=== PATIENT | female | born 1935 | race Caucasian/White ===

== ENCOUNTER 2017-12-04 09:02 | Observation (INO) ==
--- NOTE | 2017-12-04 09:26 | Emergency Department Note ---
Disposition Clinical Impression: Near syncope, Lightheaded Disposition: Admitted As Inpatient Condition: Fair Time of Disposition: 11:43 General Adult HPI - General Chief complaint: ED Dizziness Stated complaint: Dizziness ,Head pressure feels different Time Seen by Provider: 12/04/17 09:05 Source: patient Mode of arrival: private vehicle Limitations: no limitations Nursing Notes Reviewed: Yes Vital Signs Reviewed: Yes - History of Present Illness HPI Narrative: 82-year-old female prior history of vertigo, hypertension who presents to the ER with complaint of headache, lightheadedness and weakness. Reports that she has a history of vertigo going back for years. She follows with a specialist here. States that this was not similar to her previous episodes. Reports that she woke up this morning at 7 AM and when she stood up she got very nauseous. Reports that she did get lightheaded. She did not pass out. She sat down and improved. States she has felt weak since then. Denies any chest pain or shortness of breath. No double vision, change in vision, numbness, tingling. No vomiting, diarrhea or abdominal pain. No dysuria or hematuria. No other complaints. Pt Subjective Complaint: Lightheaded, headache, weakness Onset (ago): hour(s) Pain Scale: 0 Improves with: nothing Worsens with: nothing Associated symptoms: Reports: headaches, nausea/vomiting. Denies: chest pain, fever/chills, shortness of breath Treatments Prior to Arrival: none - Related Data Home Medications Medication Instructions Recorded Confirmed Aspirin 81 mg PO QPM 12/01/14 12/01/14 Losartan/Hydrochlorothiazide 1 tab PO HS 12/04/17 12/04/17 [Hyzaar 100-25 Tablet] Allergies Allergy/AdvReac Type Severity Reaction Status Date / Time No Known Allergies Allergy Verified 12/01/14 08:09 All systems ED: reviewed and negative except as stated. Constitutional: Denies: fever Cardiovascular: Denies: chest pain Respiratory: Denies: dyspnea Gastrointestinal: Reports: nausea. Denies: abdominal pain, vomiting Neurological: Reports: weakness. Denies: headache, numbness, paresthesias Past Medical History - Past Medical History Attestation: Yes The following information was validated with the patient. Source: patient Medical history: Reports: hypertension, other Surgical history: Reports: appendectomy Psychiatric history: Reports: no psych history - Social History Smoking Status: Former smoker Smokeless Tobacco Status: No Alcohol use: Reports: none Drug use: Reports: none Physical Exam - General Limitations: no limitations General appearance: alert, in no apparent distress - Head Head exam: atraumatic, normocephalic, normal inspection - Eye Eye exam: Present: normal appearance, PERRL, EOMI - ENT ENT exam: normal exam - Neck Neck exam: Present: normal inspection, full ROM - Chest Chest inspection: Present: normal inspection, symmetric chest wall rise - Respiratory Respiratory exam: Present: normal lung sounds bilaterally - Cardiovascular Cardiovascular exam: Present: regular rate, normal rhythm, normal heart sounds - Abdominal Exam Abdominal exam: Present: soft, Non-Tender. Absent: tenderness, distention, rigidity - Extremities Exam Extremities exam: Present: normal inspection, full ROM - Expanded Upper Extremity Exam Shoulder exam: Present: normal inspection, full ROM Arm exam: Present: normal inspection, full ROM Elbow exam: Present: normal inspection, full ROM Forearm/Wrist exam: Present: normal inspection, full ROM Hand exam: Present: normal inspection, full ROM Vascular exam: Normal: radial pulse - Expanded Lower Extremity Exam Hip/Pelvis exam: Present: normal inspection, full ROM Upper leg exam: Present: normal inspection, full ROM Knee exam: Present: normal inspection, full ROM Lower leg exam: Present: normal inspection, full ROM Ankle exam: Present: normal inspection, full ROM Foot/toe exam: Present: normal inspection, full ROM Neurovascular/Tendon exam: Absent: motor deficit, sensory deficit - Neurological Exam Neurological exam: Present: alert, CN II-XII intact - Expanded Neurological Exam Speech: Present: fluid speech Cranial nerves: EOM function (II, III, IV, ): Normal, facial sensation (V): Normal, spinal accessory function (XI): Normal, tongue deviation (XII): Normal Motor strength - LUE: 5/5 Motor strength - RUE: 5/5 Motor strength - LLE: 5/5 Motor strength - RLE: 5/5 Sensory exam upper extremity: light touch: Normal Sensory exam lower extremity: light touch: Normal Coma Scale Eye Opening: Spontaneous Coma Scale Motor Response: Obeys Commands Coma Scale Verbal Response: Oriented Coma Scale Total: 15 - Skin Skin exam: Present: warm, dry Course Course Narrative: Patient seen and examined. Vital signs reviewed. No focal deficits. She is not ataxic. Plan for EKG, CT head, chest x-ray, labs, urinalysis. Likely admission for near syncope. - Reevaluation(s) Reevaluation #1: Discussed imaging and labs with the patient. Agreeable with admission. She did have some nausea while here. Zofran ordered. Vital Signs Temperature 97.6 F 12/04/17 09:10 Pulse Rate 85 12/04/17 09:10 Respiratory Rate 15 12/04/17 09:10 Blood Pressure 159/106 12/04/17 09:10 O2 Sat by Pulse Oximetry 97 12/04/17 09:10 Temperature 97.6 F 12/04/17 09:20 Pulse Rate 75 12/04/17 11:00 Respiratory Rate 17 12/04/17 10:54 Blood Pressure 170/65 12/04/17 11:00 O2 Sat by Pulse Oximetry 96 12/04/17 10:54 Oxygen Delivery Oxygen Delivery Room Air Medical Decision Making - MDM Narrative Medical decision making narrative: 82-year-old female with near syncope. Hemodynamically stable. Asymptomatic at this time with the exception of some nausea. EKG is sinus without ischemia. CT head negative. Labs reviewed and grossly unremarkable. Patient admitted for near-syncope to the hospitalist for further evaluation. - Lab Data Lab results reviewed: Yes I reviewed the patient's lab results. Result diagrams: 12/04/17 09:10 12/04/17 09:10 Lab Results 12/04/17 12/04/17 12/04/17 Range/Units 09:10 09:10 09:11 WBC 7.2 (4.3-11.1) K/mcL RBC 5.66 H (3.82-4.97) M/mcL Hgb 16.9 H (11.5-15.4) g/dL Hct 50.4 H (35.3-44.9) % MCV 89.0 (83.0-100.0) fL MCH 29.9 (28.0-33.3) pg MCHC 33.5 (31.6-35.5) g/dL RDW 14.4 (11.5-14.5) % Plt Count 160 (140-400) K/mcL MPV 12.5 H (9.4-12.4) fL Immature Gran % 0.3 (0-4) % Seg Neutrophils % 68.9 % Lymphocytes % 22.7 % Monocytes % 6.4 % Eosinophils % 1.4 % Basophils % 0.3 % Neutrophils # 5.0 (1.6-8.9) K/mcL Lymphocytes # 1.6 (0.6-4.6) K/mcL Monocytes # 0.5 (0.0-1.3) K/mcL Eosinophils # 0.1 (0.0-0.6) K/mcL Basophils # 0.0 (0.0-0.2) K/mcL Sodium 140 (136-145) mEq/L Potassium 4.1 (3.5-5.1) mEq/L Chloride 101 (98-107) mEq/L Carbon Dioxide 28 (23-29) mEq/L BUN 29 H (8-23) mg/dL Creatinine 1.37 H (0.60-1.20) mg/dL Est GFR ( Amer) 45 L (> 60) Est GFR (Non-Af Amer) 37 L (> 60) BUN/Creatinine Ratio 21 (6-26) Glucose 111 H (70-105) mg/dL Calculated Osmolality 297 (280-300) Calcium 9.6 (8.6-10.3) mg/dL Troponin I < 0.03 (< 0.04) ng/mL TSH 2.974 (0.340-5.600) mcIU/mL Urine Color (Yellow) Urine Clarity (Clear) Urine pH (5.0-8.0) pH Units Ur Specific [place] (1.010-1.025) Urine Protein (Neg-Trace) mg/dL Urine Glucose (UA) (Normal) mg/dL Urine Ketones (Negative) mg/dL Urine Blood (Negative) Urine Nitrite (Negative) Urine Bilirubin (Negative) Urine Urobilinogen (Normal) mg/dL Ur Leukocyte Esterase (Negative) Urine Microscopic RBC (0-3) per hpf Urine Microscopic WBC (0-3) per hpf Ur Squamous Epith Cells (None-Few) per lpf Urine Bacteria (None-Few) per hpf Hyaline Casts (None-Few) per lpf Ur Culture Indicated? (NO) 12/04/17 Range/Units 09:31 WBC (4.3-11.1) K/mcL RBC (3.82-4.97) M/mcL Hgb (11.5-15.4) g/dL Hct (35.3-44.9) % MCV (83.0-100.0) fL MCH (28.0-33.3) pg MCHC (31.6-35.5) g/dL RDW (11.5-14.5) % Plt Count (140-400) K/mcL MPV (9.4-12.4) fL Immature Gran % (0-4) % Seg Neutrophils % % Lymphocytes % % Monocytes % % Eosinophils % % Basophils % % Neutrophils # (1.6-8.9) K/mcL Lymphocytes # (0.6-4.6) K/mcL Monocytes # (0.0-1.3) K/mcL Eosinophils # (0.0-0.6) K/mcL Basophils # (0.0-0.2) K/mcL Sodium (136-145) mEq/L Potassium (3.5-5.1) mEq/L Chloride (98-107) mEq/L Carbon Dioxide (23-29) mEq/L BUN (8-23) mg/dL Creatinine (0.60-1.20) mg/dL Est GFR ( Amer) (> 60) Est GFR (Non-Af Amer) (> 60) BUN/Creatinine Ratio (6-26) Glucose (70-105) mg/dL Calculated Osmolality (280-300) Calcium (8.6-10.3) mg/dL Troponin I (< 0.04) ng/mL TSH (0.340-5.600) mcIU/mL Urine Color Yellow (Yellow) Urine Clarity Cloudy A (Clear) Urine pH 6.0 (5.0-8.0) pH Units Ur Specific [place] 1.008 L (1.010-1.025) Urine Protein Trace (Neg-Trace) mg/dL Urine Glucose (UA) Normal (Normal) mg/dL Urine Ketones Negative (Negative) mg/dL Urine Blood Negative (Negative) Urine Nitrite Negative (Negative) Urine Bilirubin Negative (Negative) Urine Urobilinogen Normal (Normal) mg/dL Ur Leukocyte Esterase Negative (Negative) Urine Microscopic RBC 0-3 (0-3) per hpf Urine Microscopic WBC 0-3 (0-3) per hpf Ur Squamous Epith Cells Many H (None-Few) per lpf Urine Bacteria Few (None-Few) per hpf Hyaline Casts None Seen (None-Few) per lpf Ur Culture Indicated? NO (NO) - Radiology Data Radiology results reviewed: Yes I reviewed the patient's radiology results. Head CT 12/04/17 09:08 IMPRESSION: Sequela of chronic small vessel ischemic change. No acute intracranial abnormality seen. D/ / 12/04/2017 10:01:07 Santiago Alba MD / [email or web address] Interpreting Provider: Santiago Alba MD Chest X-Ray 12/04/17 09:10 IMPRESSION: No acute process. Stable exam. D/ / Clemente Telles MD / Clemente Telles MD Interpreting Provider: Clemente Telles MD - EKG Data EKG #1 EKG attestation: Yes I reviewed and interpreted this EKG. EKG results narrative: EKG demonstrates sinus rhythm with a rate of 85 beats or minute. Normal axis. Normal intervals. Normal R-wave progression. No gross ST elevations or depressions. No acute ischemic findings. No significant changes from previous EKG dated 12/01/14. S.B.A.R. - S.B.AEliotREliot Situation: Demographics, MOA Background: Presenting Complaint, Relevant PMH, Meds, & Allergies Assessment: Course and respsone to treatment, Exam Concerns, Patient/Family Expectation, Pertinant Lab Results Recommendation: Barrier(s) to disposition, Recommendation based on pending studies, treatments, or consults S.B.A.REliot Report Given to: Dr. Carlos MonsalveARobert Repor Time: 11:04 Attestation Statement - Attestation Attestation: I, Mohsen Silveira DO, examined this patient [id number] and my medical decision-making was reviewed with Dr. Ton Estrada Resident Physician. I agree with the documented findings, disposition and treatment plan as described except to the extent set forth below. Please see my progress notes for details.
[2017-12-04 09:34] LABS: Basophils % 0.3 %; Eosinophils # 0.1 K/mcL (0.0-0.6); Eosinophils % 1.4 %; Hematocrit 50.4 % (35.3-44.9); Hemoglobin 16.9 g/dL (11.5-15.4); Immature Granulocytes % 0.3 % (0-4); Lymphocytes # 1.6 K/mcL (0.6-4.6); Lymphocytes % 22.7 %; Mean Corpuscular HGB Conc 33.5 g/dL (31.6-35.5); Mean Corpuscular Hemoglobin 29.9 pg (28.0-33.3); Mean Platelet Volume 12.5 fL (9.4-12.4); Monocytes # 0.5 K/mcL (0.0-1.3); Monocytes % 6.4 %; Platelet Count 160 K/mcL (140-400); Red Blood Count 5.66 M/mcL (3.82-4.97); Red Cell Distribution Width 14.4 % (11.5-14.5); Segmented Neutrophils % 68.9 %
[2017-12-04 09:42] LABS: Bilirubin,Urine Negative (Negative); Blood,Urine Negative (Negative); Clarity,Urine Cloudy (Clear); Color,Urine Yellow (Yellow); Glucose,Urine (UA) Normal (Normal); Ketones,Urine Negative (Negative); Leukocyte Esterase,Urine Negative (Negative); Nitrite,Urine Negative (Negative); Protein,Urine Trace mg/dL (Neg-Trace); Specific Gravity,Urine 1.008 (1.010-1.025); Urobilinogen,Urine Normal (Normal)
[2017-12-04 09:44] LABS: Bacteria,Urine Few per hpf (None-Few); Hyaline Casts,Urine None Seen per lpf (None-Few); RBC,Urine 0-3 per hpf (0-3); Squamous Epithelial Cell,Urine Many per lpf (None-Few); WBC,Urine 0-3 per hpf (0-3)
[2017-12-04 09:55] LABS: BUN/Creatinine Ratio 21 (6-26); Blood Urea Nitrogen 29 mg/dL (8-23); Calcium 9.6 mg/dL (8.6-10.3); Carbon Dioxide 28 mEq/L (23-29); Chloride 101 mEq/L (98-107); Glucose 111 mg/dL (70-105); Osmolality,Calculated 297 (280-300); Potassium 4.1 mEq/L (3.5-5.1); Sodium 140 mEq/L (136-145); eGFR For Non-African Americans 37 (> 60)
[2017-12-04 09:57] LABS: Troponin I < 0.03 ng/mL (< 0.04)
[2017-12-04] MEDS ORDERED: Ondansetron 4 MG/2 ML VIAL IVP ONE (10:25)
--- NOTE | 2017-12-04 10:50 | Emergency Department Note ---
Disposition Clinical Impression: Near syncope, Lightheaded Disposition: Admitted As Inpatient Condition: Fair Time of Disposition: 11:44 General Adult HPI - General Chief complaint: ED Dizziness Stated complaint: Dizziness ,Head pressure feels different Time Seen by Provider: 12/04/17 09:05 Source: patient Mode of arrival: private vehicle Limitations: no limitations - History of Present Illness Pain Scale: 0 Improves with: nothing Worsens with: nothing Associated symptoms: Reports: headaches, nausea/vomiting. Denies: chest pain, fever/chills, shortness of breath Treatments Prior to Arrival: none - Related Data Home Medications Medication Instructions Recorded Confirmed Aspirin 81 mg PO QPM 12/01/14 12/01/14 Losartan/Hydrochlorothiazide 1 tab PO HS 12/04/17 12/04/17 [Hyzaar 100-25 Tablet] Allergies Allergy/AdvReac Type Severity Reaction Status Date / Time No Known Allergies Allergy Verified 12/01/14 08:09 Constitutional: Denies: fever Cardiovascular: Denies: chest pain Respiratory: Denies: dyspnea Gastrointestinal: Reports: nausea. Denies: abdominal pain, vomiting Neurological: Reports: weakness. Denies: headache, numbness, paresthesias Past Medical History - Past Medical History Medical history: Reports: hypertension, other Surgical history: Reports: appendectomy Psychiatric history: Reports: no psych history - Social History Smoking Status: Former smoker Smokeless Tobacco Status: No Alcohol use: Reports: none Drug use: Reports: none Physical Exam - General Limitations: no limitations General appearance: alert, in no apparent distress Course Vital Signs Temperature 97.6 F 12/04/17 09:10 Pulse Rate 85 12/04/17 09:10 Respiratory Rate 15 12/04/17 09:10 Blood Pressure 159/106 12/04/17 09:10 O2 Sat by Pulse Oximetry 97 12/04/17 09:10 Temperature 97.6 F 12/04/17 09:20 Pulse Rate 75 12/04/17 11:00 Respiratory Rate 17 12/04/17 10:54 Blood Pressure 170/65 12/04/17 11:00 O2 Sat by Pulse Oximetry 96 12/04/17 10:54 Oxygen Delivery Oxygen Delivery Room Air Medical Decision Making - Lab Data Result diagrams: 12/04/17 09:10 12/04/17 09:10 Lab Results 08/19/18 08/19/18 08/19/18 Range/Units 09:10 09:10 09:11 WBC 7.2 (4.3-11.1) K/mcL RBC 5.66 H (3.82-4.97) M/mcL Hgb 16.9 H (11.5-15.4) g/dL Hct 50.4 H (35.3-44.9) % MCV 89.0 (83.0-100.0) fL MCH 29.9 (28.0-33.3) pg MCHC 33.5 (31.6-35.5) g/dL RDW 14.4 (11.5-14.5) % Plt Count 160 (140-400) K/mcL MPV 12.5 H (9.4-12.4) fL Immature Gran % 0.3 (0-4) % Seg Neutrophils % 68.9 % Lymphocytes % 22.7 % Monocytes % 6.4 % Eosinophils % 1.4 % Basophils % 0.3 % Neutrophils # 5.0 (1.6-8.9) K/mcL Lymphocytes # 1.6 (0.6-4.6) K/mcL Monocytes # 0.5 (0.0-1.3) K/mcL Eosinophils # 0.1 (0.0-0.6) K/mcL Basophils # 0.0 (0.0-0.2) K/mcL Sodium 140 (136-145) mEq/L Potassium 4.1 (3.5-5.1) mEq/L Chloride 101 (98-107) mEq/L Carbon Dioxide 28 (23-29) mEq/L BUN 29 H (8-23) mg/dL Creatinine 1.37 H (0.60-1.20) mg/dL Est GFR ( Amer) 45 L (> 60) Est GFR (Non-Af Amer) 37 L (> 60) BUN/Creatinine Ratio 21 (6-26) Glucose 111 H (70-105) mg/dL Calculated Osmolality 297 (280-300) Calcium 9.6 (8.6-10.3) mg/dL Troponin I < 0.03 (< 0.04) ng/mL TSH 2.974 (0.340-5.600) mcIU/mL Urine Color (Yellow) Urine Clarity (Clear) Urine pH (5.0-8.0) pH Units Ur Specific [place] (1.010-1.025) Urine Protein (Neg-Trace) mg/dL Urine Glucose (UA) (Normal) mg/dL Urine Ketones (Negative) mg/dL Urine Blood (Negative) Urine Nitrite (Negative) Urine Bilirubin (Negative) Urine Urobilinogen (Normal) mg/dL Ur Leukocyte Esterase (Negative) Urine Microscopic RBC (0-3) per hpf Urine Microscopic WBC (0-3) per hpf Ur Squamous Epith Cells (None-Few) per lpf Urine Bacteria (None-Few) per hpf Hyaline Casts (None-Few) per lpf Ur Culture Indicated? (NO) 12/04/17 Range/Units 09:31 WBC (4.3-11.1) K/mcL RBC (3.82-4.97) M/mcL Hgb (11.5-15.4) g/dL Hct (35.3-44.9) % MCV (83.0-100.0) fL MCH (28.0-33.3) pg MCHC (31.6-35.5) g/dL RDW (11.5-14.5) % Plt Count (140-400) K/mcL MPV (9.4-12.4) fL Immature Gran % (0-4) % Seg Neutrophils % % Lymphocytes % % Monocytes % % Eosinophils % % Basophils % % Neutrophils # (1.6-8.9) K/mcL Lymphocytes # (0.6-4.6) K/mcL Monocytes # (0.0-1.3) K/mcL Eosinophils # (0.0-0.6) K/mcL Basophils # (0.0-0.2) K/mcL Sodium (136-145) mEq/L Potassium (3.5-5.1) mEq/L Chloride (98-107) mEq/L Carbon Dioxide (23-29) mEq/L BUN (8-23) mg/dL Creatinine (0.60-1.20) mg/dL Est GFR ( Amer) (> 60) Est GFR (Non-Af Amer) (> 60) BUN/Creatinine Ratio (6-26) Glucose (70-105) mg/dL Calculated Osmolality (280-300) Calcium (8.6-10.3) mg/dL Troponin I (< 0.04) ng/mL TSH (0.340-5.600) mcIU/mL Urine Color Yellow (Yellow) Urine Clarity Cloudy A (Clear) Urine pH 6.0 (5.0-8.0) pH Units Ur Specific [place] 1.008 L (1.010-1.025) Urine Protein Trace (Neg-Trace) mg/dL Urine Glucose (UA) Normal (Normal) mg/dL Urine Ketones Negative (Negative) mg/dL Urine Blood Negative (Negative) Urine Nitrite Negative (Negative) Urine Bilirubin Negative (Negative) Urine Urobilinogen Normal (Normal) mg/dL Ur Leukocyte Esterase Negative (Negative) Urine Microscopic RBC 0-3 (0-3) per hpf Urine Microscopic WBC 0-3 (0-3) per hpf Ur Squamous Epith Cells Many H (None-Few) per lpf Urine Bacteria Few (None-Few) per hpf Hyaline Casts None Seen (None-Few) per lpf Ur Culture Indicated? NO (NO) Attestation Statement - Attestation Attestation: I, Mohsen Silveira DO, examined this patient [id number] and my medical decision-making was reviewed with (Dr. Ton Estrada, Resident Physician. I agree with the documented findings, disposition and treatment plan as described except to the extent set forth below. Please see my progress notes for details. 82-year-old male presents to the emergency room for evaluation of dizziness and lightheadedness. Patient woke up this morning and felt perfectly fine thought that she had a good night sleep. She sat up in bed and acutely had dizziness and felt like her head was twice the size of the typically is. Patient denies any falls or trauma. She has no other recent medical issues. She denies any chest pain shortness of breath fevers chills nausea vomiting or diarrhea. Denies any headache or vision change. Her main complaint is a lightheaded sensation. Patient had what is described as a near syncopal event at home. CT imaging of the head along with EKG chest x-ray CBC chemistry and troponin will be collected here in the emergency room. Disposition will be determined once a full workup and treatment course on been established. On my physical exam the patient is resting comfortably in the bed head is atraumatic pupils are equal round reactive extraocular muscles are intact she answers questions appropriately. She has no facial asymmetry or slurred speech. Patient is otherwise comfortable and in no distress. Her lungs are clear heart is regular abdomen is soft. Lengthy discussion was had about disposition and the patient is comfortable being admitted with appropriate after the workup has been established. Patient will most likely be admitted secondary to near syncopal event at home with unknown etiology. She does have a history of vertigo but this is completely different than her vertigo symptoms in the past. See detailed documentation of the physical exam, medical intervention, medical decision-making and disposition in the resident physician's note. No critical care provider the patient's treatment course at this time. 1025 CT the head is unremarkable. Chest x-ray stable. EKG and labs are unremarkable. Patient does not have any acute metabolic or cardiothoracic related source to the near syncopal event here today. Vascular studies as well as detailed evaluation the cardiac function will be completed in the inpatient setting. Hospitalist was paged. Patient will be admitted for definitive management. Dr. Gonzalez reviewed the case and no other recommendations or concerns. Patient will be admitted.
[2017-12-04] MEDS ORDERED: Acetaminophen 325 MG TABLET PO PRN (13:01)
[2017-12-04] MEDS ORDERED: Naloxone 0.4 MG/ML INJ IVP PRN (13:01)
[2017-12-04] MEDS ORDERED: Ondansetron 4 MG/2 ML VIAL IVP PRN (13:10)
[2017-12-04] MEDS ORDERED: *HR* Promethazine 25 MG/ML VIAL IVP PRN (13:11)
[2017-12-04] MEDS ORDERED: Scopolamine Patch 1.5 MG PATCH.TD72 TD SCH (13:15)
--- NOTE | 2017-12-04 13:26 | Internal Med History&Physical ---
<NeishamandaedeRobbin woodruff - Last Filed: 12/04/17 14:00> Date of Encounter: 12/04/17 Time of Encounter: 12:30 Internal Medicine - H&P: HPI Chief complaint: Dizziness Admitted From: Emergency Dept Plans for Post Hospital Care: Home History of present illness: Ms. Stahl is a 82 year old female w/PMH of HTN and vertigo w/CC of episodes of vertigo 1-2x daily over the past several months. Woke up at 7 a.m. and went to get out of bed and became dizzy and nauseous. Associated sx: Headache, shortness of breath, nausea, weakness. No alleviating or aggravating factors. Patient states she was taken off by mouth meclizine by Dr. Clark approx. 1 week ago. No improvement or worsening of sx. Patient denies recent illness, fever, chills, vomiting, changes in vision, unusual bleeding, cough, chest congestion, chest pain, diarrhea, constipation, numbness, tingling, pre-syncope, or syncope. Past Med Surg Social Fam HX - Past Medical History Source: patient, old records reviewed, obtained from family Medical history: hypertension, other Additional medical history: vertigo Psychiatric history: no psych history - Past Surgical History Surgical History: appendectomy - Social History Smoking Status: Current every day smoker Packs per day: 1 PPWeek Smokeless Tobacco Status: No Alcohol use: none Drug use: none Current living situation: Home, With Family Activity Level: Independent ambulation Recent Out of Country Travel Within the Last 8 Weeks: No Exposure or Possible Exposure to Illness During Travel: No - Family History Brother Adopted: No Race: Family Member Ethnicity: Non- Living Status: Age at : 60 Cause of : DM Hx Family Endocrine Disorder: Yes (DM) Sister Race: Family Member Ethnicity: Non- Living Status: Age at : 55 Cause of : Breast cancer Hx Family Cardiac Disorders: Yes (CAD) Hx Family Cancer: Yes (Breast) Hx Family Endocrine Disorder: Yes (DM) Father History Unknown: Yes Race: Family Member Ethnicity: Non- Living Status: Mother Race: Family Member Ethnicity: Non- Living Status: Age at : 86 Cause of : Old age Internal Medicine - H&P: Meds Aspirin 81 mg PO HS 12/01/14 [History] Losartan/Hydrochlorothiazide [Hyzaar 100-25 Tablet] 1 tab PO HS 12/04/17 [ History] 3 Allergy/AdvReac Type Severity Reaction Status Date / Time No Known Allergies Allergy Verified 12/01/14 08:09 All Systems PM: A 10-system review of systems was performed and is negative for pertinent findings except as documented above in the HPI. - Constitutional Constitutional: as per HPI, anorexia (Reduced appetite d/t nausea r/t dizziness sx), weakness, no chills, no fever(s), no night sweats - EENT Eyes: no change in vision, no discharge, no pain, no photophobia Ears: no ear discharge, no ear pain, no tinnitus Nose, mouth and throat: no dysphagia, no nasal discharge, no neck pain, no sore throat - Breasts Breasts: as per HPI - Cardiovascular Cardiovascular ROS IM: as per HPI, dyspnea, lightheadedness, no chest pain, no diaphoresis, no palpitations, no syncope - Respiratory Respiratory: as per HPI, dyspnea, no cough, no wheezing, no excessive phlegm production - Gastrointestinal Gastrointestinal: as per HPI, nausea, no abdominal pain, no diarrhea, no hematemesis, no hematochezia, no melena, no vomiting - Genitourinary Genitourinary: as per HPI, no change in urinary stream, no dysuria, no flank pain, no hematuria Menstruation: as per HPI - Musculoskeletal Musculoskeletal ROS IM: as per HPI, no numbness, no tingling - Integumentary Integumentary IM: no rash, no unusual bruising - Neurological Neurological ROS: as per HPI, dizziness, vertigo, weakness, no confusion, no convulsions, no focal weakness, no numbness, no tingling, no tremor(s) - Psychiatric Psychiatric: as per HPI - Endocrine Endocrine IM: as per HPI - Hematologic/Lymphatic Hematologic/Lymphatic: no easy bruising - Allergic/Immunologic Allergic/Immunologic: as per HPI - Constitutional Vitals: Temp Pulse Resp BP Pulse Ox 98.1 F 69 16 168/77 97 12/04/17 12:19 12/04/17 12:19 12/04/17 12:19 12/04/17 12:19 12/04/17 12:19 General appearance: Present: cooperative, A&O X 3, pleasant, no acute distress, answers questions appropriately - Head Head exam: Present: atraumatic, normocephalic - Eye Eye exam: Present: PERRL, conjuntiva pink, sclera anicteric Pupils: Present: PERRL - ENT ENT exam: Present: normal exam - Neck Neck exam general surgery: Present: normal inspection, supple, trachea midline. Absent: lymphadenopathy - Respiratory Respiratory exam: Present: CTAB. Absent: accessory muscle use, rales, rhonchi, wheezes - Cardiovascular Cardiovascular exam: Present: RRR, +S1, +S2. Absent: diastolic murmur, gallop, rubs, systolic murmur - GI/Abdominal GI/Abdominal exam: Present: normal bowel sounds, soft, no peritoneal signs. Absent: distended, tenderness - Rectal Rectal exam: Present: deferred - Additional comments: exam deferred. - Extremities Exam Extremities exam: Present: warm, radial pulses palpable and symmetrical. Absent : calf tenderness, cyanotic, pedal edema - Back Exam Back exam: Present: normal inspection - Neurological Exam Neurological exam: Present: CN II-XII intact, oriented X3, no focal deficits. Absent: pronater drift, facial droop, speech deficit - Psychiatric Psychiatric exam: Present: normal affect, normal mood - Skin Skin exam: Present: dry, intact Internal Med - H&P Results - Labs CBC & Chem 7: 12/04/17 09:10 12/04/17 09:10 - EKG Data EKG shows normal: sinus rhythm - EKG Data Prior EKG available for review: yes EKG comments: 12/04/17 13:35 EKG dated 12/01/14 shows sinus rhythm and normal ECG. EKG dated 12/04/17 shows sinus rhythm with normal P axis and a rate of 99, atrial premature complex (ST complex was short R-R interval),LAE consider bilateral enlargement. - Diagnostic Studies Chest x-ray Additional comments: Impressions Chest X-Ray 12/04/17 09:10 IMPRESSION: No acute process. Stable exam. D/ / Clemente Telles MD / Clemente Telles MD Interpreting Provider: Clemente Telles MD CT scan - head Additional comments: Impressions Head CT 12/04/17 09:08 IMPRESSION: Sequela of chronic small vessel ischemic change. No acute intracranial abnormality seen. D/ / 12/04/2017 10:01:07 Santiago Alba MD / abimael Interpreting Provider: Santiago Alba MD - Assessment and plan (1) Vertigo Current Visit: Yes Status: Acute Assessment and plan: Acute on chronic vertigo. Pt. reports sx 1-2x daily over the past several months. Woke up at 7 a.m. and went to get out of bed and became dizzy and nauseous. Associated sx: Headache, shortness of breath, nausea, weakness. No alleviating or aggravating factors. Patient states she was taken off by mouth meclizine by Dr. Clark approx. 1 week ago. No improvement or worsening of sx when taken off Meclizine. CT of the head/brain shows sequela of chronic small vessel ischemic change. No acute intracranial abnormality seen. MRI of the head /brain ordered. Bilateral carotid Dopplers ordered. Orthostatic BPs and VS. IVP Zofran and Phenergan for nausea and vomiting. Meclizine 25 mg by mouth 3 times a day when necessary. Falls precautions/up with assist only. Continuous cardiac telemetry. Pt. discussed w/Dr. Gonzalez who agrees w/plan of care. Pt. is moderate risk for further morbidity and risk d/t ongoing and untreated sx of vertigo and dizziness requiring further head imaging, hx, and risk factors. Observation. (2) Dizziness Current Visit: Yes Status: Acute Assessment and plan: Acute on chronic dizziness. Pt. reports dizziness w/vertiginous sx. Pt. also states becoming nauseous w/sx. Falls/safety precautions and up with assist only. Orthostatic BPs and VS. Bilateral carotid Dopplers ordered. (3) HTN (hypertension) Current Visit: Yes Status: Chronic Assessment and plan: Hx of chronic HTN. Monitor pt. and VS. Continue pts. Losartan/ hydrochlorothiazide. Hydralazine IVP w/parameters for breakthrough HTN. Qualifiers: Hypertension type: essential hypertension Qualified Code(s): I10 - Essential (primary) hypertension (4) CKD (chronic kidney disease) stage 3, GFR 30-59 ml/min Current Visit: Yes Status: Chronic Assessment and plan: Hx of chronic CKD, currently stage 3 w/GFR of 37 and creatinine of 1.37. No recent records for comparison. 0.9 NS IV fluids @ 75 mLs/HR. Monitor I&O. Avoid nephrotoxins. Monitor pt. and f/u labs. (5) DVT prophylaxis Current Visit: Yes Status: Acute Assessment and plan: Heoarin 5,000 units SQ Q!@HR for DVT prophylaxis. Monitor pt. for signs of bleeding. (6) Nausea Current Visit: Yes Status: Acute Assessment and plan: Acute on chronic nausea w/vertiginous sx. Denies vomiting. IVP Zofran and IVP Phenergan ordered to control N/V. Monitor I&O. Clear liquid diet to be advanced as tolerated. - Time Spent With Patient Total time spent is greater than 50% in coordination of care (as documented) at patient's floor/unit and/or counseling patient: Greater than 35 minutes <Therese Gonzalez - Last Filed: 12/04/17 14:30> Date of Encounter: 12/04/17 Internal Medicine - H&P: HPI History of present illness: Ms. Stahl is a 82 year old female All Systems PM: A 10-system review of systems was performed and is negative for pertinent findings except as documented above in the HPI. - Constitutional Vitals: Temp Pulse Resp BP Pulse Ox 98.1 F 69 16 168/77 97 12/04/17 12:19 12/04/17 12:19 12/04/17 12:19 12/04/17 12:19 12/04/17 12:19 Internal Med - H&P Results - Labs CBC & Chem 7: 12/04/17 09:10 12/04/17 09:10 - Attending Attestation I have seen and examined this patient independently. I have discussed with QUANTITATIVE ANALYST DEVELOPER Mr Romo regarding the management plan. Agree with the documentation. - Assessment and plan (1) CKD (chronic kidney disease) stage 3, GFR 30-59 ml/min Current Visit: Yes Status: Chronic (2) Vertigo Current Visit: Yes Status: Acute (3) HTN (hypertension) Current Visit: Yes Status: Chronic Qualifiers: Hypertension type: essential hypertension Qualified Code(s): I10 - Essential (primary) hypertension (4) DVT prophylaxis Current Visit: Yes Status: Acute (5) Dizziness Current Visit: Yes Status: Acute (6) Nausea Current Visit: Yes Status: Acute - Time Spent With Patient Total time spent is greater than 50% in coordination of care (as documented) at patient's floor/unit and/or counseling patient:
[2017-12-04] MEDS ORDERED: 0.9 % Sodium Chloride 1,000 ML IVC SCH (13:30)
[2017-12-04] MEDS: *HR* Heparin 5,000 UNIT/ML VIAL SQ SCH (18:10)
[2017-12-04] MEDS: Aspirin 81 MG TAB.CHEW PO SCH (19:24)
[2017-12-04] MEDS ORDERED: Losartan/HCTZ 50-12.5 TABLET PO SCH (21:00)
[2017-12-05 05:22] LABS: Basophils % 0.4 %; Eosinophils # 0.1 K/mcL (0.0-0.6); Eosinophils % 1.5 %; Hematocrit 42.9 % (35.3-44.9); Immature Granulocytes % 0.2 % (0-4); Lymphocytes # 1.9 K/mcL (0.6-4.6); Lymphocytes % 36.9 %; Mean Corpuscular HGB Conc 32.6 g/dL (31.6-35.5); Mean Corpuscular Hemoglobin 29.4 pg (28.0-33.3); Mean Corpuscular Volume 89.9 fL (83.0-100.0); Mean Platelet Volume 12.6 fL (9.4-12.4); Monocytes # 0.4 K/mcL (0.0-1.3); Monocytes % 8.1 %; Neutrophils # 2.8 K/mcL (1.6-8.9); Platelet Count 112 K/mcL (140-400); Red Blood Count 4.77 M/mcL (3.82-4.97); Red Cell Distribution Width 14.4 % (11.5-14.5); Segmented Neutrophils % 52.9 %
[2017-12-05] MEDS: *HR* Heparin 5,000 UNIT/ML VIAL SQ SCH ×2 (05:28→18:14)
[2017-12-05 05:44] LABS: Albumin 3.6 g/dL (3.5-5.7); Albumin/Globulin Ratio 1.5 (1.1-2.2); Bilirubin,Total 0.4 mg/dL (0.3-1.0); Calcium 8.9 mg/dL (8.6-10.3); Globulin 2.4 g/dL (2.4-3.5); Magnesium 2.2 mg/dL (1.6-2.6); Potassium 4.5 mEq/L (3.5-5.1)
[2017-12-05 11:15] LABS: Estimated Average Glucose 126 mg/dl
--- NOTE | 2017-12-05 15:28 | Electrocardiograph Report ---
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
[2017-12-05] MEDS: Aspirin 81 MG TAB.CHEW PO SCH (19:54)
--- NOTE | 2017-12-05 21:35 | Internal Med Progress Note ---
Hospitalist Progress Note - Encounter Date of Encounter: 12/05/17 Time of Encounter: 11:30 - Subjective Interval History: Patient was seen and examined at bedside earlier in the day. Denies any CP or SOB Cont to complain of vertigo but not as bad as when she was admitted - Exam Vitals: Temp Pulse Resp BP Pulse Ox 98.2 F 76 15 148/63 96 12/05/17 18:53 12/05/17 18:53 12/05/17 18:53 12/05/17 18:53 12/05/17 18:53 Exam: General: Alert and oriented x3 Skin:Normal color, no rash, no lesions. HEENT:EOM, pupils equal, round and reactive,no nyastagmus Cardiovascular: irregular S1 & S2, no rubs, murmurs or gallops. No JVD. Pulse regular. Lungs:Normal breath sounds, no wheezes or crackles. Abdomen:Soft, non-tender, no rigidity. Extremities:No deformity, no edema or tenderness, no joint swelling or clubbing. Neurological:Normal cognition and motor skills. Pulses:Carotid and radial pulses normal +2. - Assessment and Plan (1) CKD (chronic kidney disease) stage 3, GFR 30-59 ml/min Current Visit: Yes Status: Chronic Assessment and Plan: Hx of chronic CKD, currently stage 3 w/GFR of 37 and creatinine of 1.37. No recent records for comparison. 0.9 NS IV fluids @ 75 mLs/HR. Monitor I&O. Avoid nephrotoxins. Monitor pt. and f/u labs. (2) Vertigo Current Visit: Yes Status: Acute Assessment and Plan: Acute on chronic vertigo sx 1-2x daily over the past several months.Woke up at 7 a.m. and went to get out of bed and became dizzy and nauseous she was taken off by mouth meclizine by Dr. Clark approx. 1 week ago. upon review of records in [facility] patient was seen on the 11/21/[address] Clark ENT according to the note it stated "I discussed Meniere's disease with patient in detail. I recommend limiting sodium intake to 1800MG a day, and to decrease any caffiene intake. Patient was also advised to increase water intake daily. Patient verbally agrees and understands treatment plan. All questions were answered. Meniere's Disease material was printed I also spoke with patient that I would like her to discontinue the use of Meclizine. " "Patient denies any ear fullness or pressure Denies any tinnitis or ear pain - She does wear hearing aides States that when she is laying with the left ear down she will have dizziness but when she turns over to the right side the spinning will stop." When I questioned the patient about this visit the daughter states" oh yeah I do remember him talking about that" She was given literature concerning meniere' s disease CT of head and MRI unremarkable carotoid duplex - Bilateral carotid systems have nonstenotic plaque. orhtostatic are positive- we will give IVF- decrease hyzaar and recheck in am PT/OT evaluated- she can follow up with vestibular PT as outpatient - PCP will need to arrange as OP awaiting echo (3) HTN (hypertension) Current Visit: Yes Status: Chronic Assessment and Plan: Hx of chronic HTN.- orthostaic are positive we will decrease Hyzaar Hydralazine IVP w/parameters for breakthrough HTN. (4) DVT prophylaxis Current Visit: Yes Status: Acute Assessment and Plan: Heoarin 5,000 units SQ Q!@HR for DVT prophylaxis. Monitor pt. for signs of bleeding. (5) Dizziness Current Visit: Yes Status: Acute (6) Nausea Current Visit: Yes Status: Acute - Time Spent with Patient Total time spent is greater than 50% in coordination of care (as documented) at patient's floor/unit and/or counseling patient: Internal Medicine: Result - Labs CBC & Chem 7: 12/05/17 04:30 12/05/17 04:30 Labs: Short CBC 12/05/17 Range/Units 04:30 WBC 5.2 (4.3-11.1) K/mcL Hgb 14.0 D (11.5-15.4) g/dL Hct 42.9 (35.3-44.9) % Plt Count 112 L (140-400) K/mcL Neutrophils # 2.8 (1.6-8.9) K/mcL BMP 12/05/17 04:30 Sodium 140 Potassium 4.5 Chloride 107 Carbon Dioxide 29 BUN 33 H Creatinine 1.33 H Glucose 95 Calcium 8.9 Liver Function 12/05/17 Range/Units 04:30 Total Bilirubin 0.4 (0.3-1.0) mg/dL AST 13 (13-39) Units/L ALT 8 (7-52) Units/L Alkaline Phosphatase 59 (34-104) Units/L Albumin 3.6 (3.5-5.7) g/dL Consult Discharge Plan - Plan Referrals: Juan R Kaminski MD [Primary Care Provider] - (3) HTN (hypertension) Qualifiers: Hypertension type: essential hypertension Qualified Code(s): I10 - Essential (primary) hypertension
[2017-12-05] MEDS: Losartan/HCTZ 50-12.5 TABLET PO SCH (22:50)
[2017-12-06 04:56] LABS: Basophils % 0.4 %; Eosinophils # 0.1 K/mcL (0.0-0.6); Eosinophils % 2.2 %; Hematocrit 42.3 % (35.3-44.9); Immature Granulocytes % 0.2 % (0-4); Lymphocytes # 1.9 K/mcL (0.6-4.6); Lymphocytes % 38.9 %; Mean Corpuscular HGB Conc 33.1 g/dL (31.6-35.5); Mean Corpuscular Hemoglobin 29.4 pg (28.0-33.3); Mean Corpuscular Volume 88.7 fL (83.0-100.0); Mean Platelet Volume 12.8 fL (9.4-12.4); Monocytes # 0.3 K/mcL (0.0-1.3); Monocytes % 6.7 %; Neutrophils # 2.5 K/mcL (1.6-8.9); Platelet Count 117 K/mcL (140-400); Red Blood Count 4.77 M/mcL (3.82-4.97); Red Cell Distribution Width 14.3 % (11.5-14.5); Segmented Neutrophils % 51.6 %
[2017-12-06] MEDS: *HR* Heparin 5,000 UNIT/ML VIAL SQ SCH (05:06)
[2017-12-06 05:17] LABS: Albumin 3.7 g/dL (3.5-5.7); Albumin/Globulin Ratio 1.5 (1.1-2.2); Bilirubin,Total 0.3 mg/dL (0.3-1.0); Calcium 9.1 mg/dL (8.6-10.3); Globulin 2.5 g/dL (2.4-3.5); Potassium 4.1 mEq/L (3.5-5.1); Total Protein 6.2 g/dL (6.4-8.9)
[2017-12-06 06:58] VITALS: BP 169/71
[2017-12-06] MEDS: Losartan/HCTZ 50-12.5 TABLET PO SCH (08:14)
--- NOTE | 2017-12-06 11:44 | Discharge Summary ---
- NOTES TO OUTPATIENT PROVIDER Notes to Outpatient Provider: Patient will need a close follow-up on her blood pressures because she has just undergone dose adjustments. It seems she was not tolerating the Hyzaar comminution and hence I have switched her to just Diovan without the hydrochlorothiazide component. She has been asked to keep a blood pressure diary and follow up with her primary care physician on Tuesday. Orders not resulted at time of discharge: Pending orders 12/07/17 04:00 Complete Blood Count [HEME] AM 0400 Comprehensive Metabolic Panel AM 0400 Date of Encounter: 12/06/17 Time of Encounter: 11:42 - Discharge Diagnosis (1) CKD (chronic kidney disease) stage 3, GFR 30-59 ml/min Priority: Secondary Status: Chronic (2) Vertigo Priority: Primary Status: Acute (3) HTN (hypertension) Priority: Secondary Status: Chronic Qualifiers: Hypertension type: essential hypertension Qualified Code(s): I10 - Essential (primary) hypertension (4) DVT prophylaxis Priority: Secondary Status: Acute (5) Dizziness Priority: Secondary Status: Acute (6) Nausea Priority: Secondary Status: Acute Hospital course: Ms. Stahl is a 82 year old female who was observed in the hospital for dizziness and nausea. She was found to be orthostatic in the hospital and was also in acute on chronic renal failure. She was given gentle hydration and her medications were also adjusted. It seems she took a combination of hydrochlorothiazide and valsartan an outpatient. I will would like to discontinue the hydrochlorothiazide complement and put her just on the ARB. She will get a prescription for Diovan which is what her insurance permits and then follow up with an outpatient provider on Tuesday after keeping continuous blood pressure diary documentation. I will also asked her to keep her hydration up. Discharge discussed with: patient - Time Spent with Patient Total time spent providing and/or coordinating discharge services: Greater than 30 minutes - Discharge Medications Prescriptions: Valsartan [Diovan] 160 mg PO DAILY #30 tablet Home Medications: Aspirin 81 mg PO HS 12/01/14 [History] Valsartan [Diovan] 160 mg PO DAILY #30 tablet 12/06/17 [Rx] Allergies/Adverse Reactions: 3 Allergy/AdvReac Type Severity Reaction Status Date / Time No Known Allergies Allergy Verified 12/01/14 08:09 Date of admission: 12/04/17 11:09 Primary care physician: Juan R Kaminski MD Consults: 12/04/17 13:05 Consult to Solderer Dipper [CONS] Routine Reason for SW Consult: Please assess patient for possible home needs for post -discharge planning. - Constitutional Vitals: Temp Pulse Resp BP Pulse Ox 97.7 F 69 16 169/71 93 12/06/17 06:57 12/06/17 06:57 12/06/17 06:57 12/06/17 06:57 12/06/17 06:57 General appearance: Present: cooperative, A&O X 3, pleasant, no acute distress, answers questions appropriately Exam: GENERAL: Alert, no distress, cooperative EYES: PERRLA, EOMI EARS: External ears normal, canals clear OROPHARYNX: Lips, mucosa, and tongue normal. Teeth and gums normal. Oropharynx normal. NECK: No jugulovenous distention, No carotid bruits, Carotid pulse normal contour, Supple LUNGS: Lungs clear to auscultation, Good diaphragmatic excursion CARDIAC: Normal S1 and S2; no rubs, murmurs, or gallops ABDOMEN: Abdomen soft, non-tender, BS normal, No masses or organomegaly EXTREMITIES: Extremities normal, no deformities, edema, clubbing or skin discoloration. Good capillary refill., No ulcers NEURO: Gait normal. Reflexes normal and symmetric. Sensation grossly intact, Cranial nerves II-XII intact PULSES: 2+ radial, 2+ carotid Rest of the exam is non contributory - Patient Status Disposition: Home, Self-Care Condition: Fair Functional capacity at discharge: independent ambulation Overall status at discharge: patient is progressing back to baseline - Discharge Instructions Follow Up With: Juan R Kaminski MD [Primary Care Provider] - 12/12/17 3:30 pm (Your appointement that was scheduled 12/09/17 at 1130 has been rescheduled.) - Diet and Activity Activity: increase activity as tolerated Diet: advance to your usual diet
== END 2017-12-06 12:14 | disposition home or self-care (01) ==
LOC: 3BNU 09:02 → EMEROOARM 09:02 → 3BNU 12:14
PROVIDERS: ADMIT Internal Medicine; ATTEND Internal Medicine

== ENCOUNTER 2018-08-01 02:22 | Inpatient (IN) ==
[2018-08-01] MEDS ORDERED: Ipratropium/Albuterol Neb 3 ML IH ONE (02:39)
[2018-08-01] MEDS ORDERED: methylPREDNISolone 125 MG/2 ML VIAL IVP ONE (02:40)
[2018-08-01 03:09] LABS: Basophils % 0.2 %; Eosinophils # 0.1 K/mcL (0.0-0.6); Eosinophils % 1.4 %; Hematocrit 45.8 % (35.3-44.9); Hemoglobin 14.8 g/dL (11.5-15.4); Immature Granulocytes % 0.2 % (0-4); Lymphocytes # 1.1 K/mcL (0.6-4.6); Lymphocytes % 16.7 %; Mean Corpuscular HGB Conc 32.3 g/dL (31.6-35.5); Mean Corpuscular Hemoglobin 29.5 pg (28.0-33.3); Mean Corpuscular Volume 91.4 fL (83.0-100.0); Mean Platelet Volume 12.7 fL (9.4-12.4); Monocytes # 0.4 K/mcL (0.0-1.3); Monocytes % 5.7 %; Platelet Count 117 K/mcL (140-400); Red Blood Count 5.01 M/mcL (3.82-4.97); Red Cell Distribution Width 14.1 % (11.5-14.5); Segmented Neutrophils % 75.8 %
[2018-08-01 03:30] LABS: BUN/Creatinine Ratio 18 (6-26); Blood Urea Nitrogen 21 mg/dL (8-23); Calcium 8.7 mg/dL (8.6-10.3); Carbon Dioxide 23 mEq/L (23-29); Chloride 108 mEq/L (98-107); Glucose 125 mg/dL (70-105); Osmolality,Calculated 294 (280-300); Potassium 3.8 mEq/L (3.5-5.1); Sodium 140 mEq/L (136-145); eGFR For Non-African Americans 43 (> 60)
[2018-08-01 03:33] LABS: Troponin I < 0.03 ng/mL (< 0.04)
--- NOTE | 2018-08-01 03:46 | Emergency Department Note ---
Disposition Clinical Impression: Hypoxia, COPD exacerbation Disposition: Admitted As Inpatient Condition: Fair Time of Disposition: 04:33 SOB HPI - General Chief Complaint: ED Shortness of Breath/Dyspnea Stated Complaint: shortness of breath Time Seen by Provider: 08/01/18 02:27 Source: patient Mode of arrival: ambulatory Limitations: no limitations Nursing Notes Reviewed: Yes Vital Signs Reviewed: Yes - History of Present Illness 83-year-old female presented to the emergency department from home via EMS for difficulty in breathing. Said for one to 2 days she has had shortness of breath and a cough. She said today she woke up from sleep and noticed that she is having a very hard time breathing which worried her and called EMS to take her to the hospital. Patient does not believe she has a history of COPD but she does have a albuterol inhaler that she does use regular she did it does not have oxygen. She has been a chronic smoker most of her life is currently using Chantix and trying to stop. She is not currently smoking at this time. She has had clear sputum production she is not complaining of any chest pain she has had no nausea or vomiting or no fevers. Never had any blood clots, unilateral leg swelling, pulmonary embolisms, long car rides, long plane rides, recent hormone use, recent surgery or recent cancer diagnoses. Otherwise she has no other complaints. - Related Data Home Medications Medication Instructions Recorded Confirmed Dialyvite Vitamin D 06/09/18 Losartan Potassium [Cozaar] 50 mg PO DAILY 07/09/18 08/01/18 Atenolol [Tenormin] 25 mg PO DAILY 08/01/18 08/01/18 Allergies Allergy/AdvReac Type Severity Reaction Status Date / Time No Known Allergies Allergy Verified 07/24/18 10:14 All systems ED: reviewed and negative except as stated. Review of Systems: As Per HPI Past Medical History - Past Medical History Attestation: Yes The following information was validated with the patient. Source: patient Medical history: Reports: COPD, hypertension, other Surgical history: Reports: appendectomy Psychiatric history: Reports: no psych history - Social History Smoking Status: Current every day smoker Smokeless Tobacco Status: No Alcohol use: Reports: none Drug use: Reports: none Physical Exam - General Limitations: no limitations General appearance: alert, in no apparent distress - Head Head exam: atraumatic, normocephalic, normal inspection - Eye Eye exam: Present: normal appearance, PERRL, EOMI - ENT ENT exam: normal exam, normal oropharynx, mucous membranes moist - Neck Neck exam: Present: normal inspection, full ROM, trachea midline - Chest Chest inspection: Present: normal inspection, symmetric chest wall rise - Respiratory Respiratory exam: Present: normal lung sounds bilaterally, wheezes (Bilateral ly). Absent: respiratory distress, accessory muscle use, prolonged expiratory phase - Cardiovascular Cardiovascular exam: Present: regular rate, normal rhythm, normal heart sounds - Abdominal Exam Abdominal exam: Present: soft, Non-Tender, normal bowel sounds. Absent: tenderness, distention, guarding, rebound, rigidity - Extremities Exam Extremities exam: Present: normal inspection, full ROM. Absent: tenderness, pedal edema - Back Exam Back exam: Present: normal inspection, full ROM. Absent: tenderness, CVA tenderness (R), CVA tenderness (L) - Neurological Exam Neurological exam: Present: alert, oriented X3 - Skin Skin exam: Present: warm Course Vital Signs Temperature 97.9 F 08/01/18 02:28 Pulse Rate 94 08/01/18 02:28 Respiratory Rate 22 08/01/18 02:28 Blood Pressure 132/73 08/01/18 02:28 O2 Sat by Pulse Oximetry 95 08/01/18 02:28 Temperature 97.9 F 08/01/18 02:28 Pulse Rate 98 08/01/18 03:58 Respiratory Rate 18 08/01/18 03:58 Blood Pressure 97/52 08/01/18 03:58 O2 Sat by Pulse Oximetry 95 08/01/18 04:08 Oxygen Delivery Oxygen Delivery Room Air Shortness of Breath/Dyspnea - [facility] Narrative Medical decision making narrative: Patient presented here short of breath. Patient was not in respiratory distress when I evaluated her. She did have normal vital signs mild hypoxia at 93%. Did give patient DuoNeb treatments as she did receive 1 via EMS as she received a total of 9 ML's. After seeing that patient did feel much better. Did give patient IV steroids. Patient's labs came back with no acute abnormalities. D- dimer was normal using the age-adjusted level. Patient did not need CT angiogram for pulmonary embolism at this time. Troponin was negative EKG had no acute findings. Patient is on oxygen when first evaluated her we did turn that off and she dropped down to 86% well on room air. The patient is hypoxic and he sustained the hospital for oxygen requirements. I do not find any source of pneumonia so will not treat with antibiotics at this time. Patient will be admitted to the hospitalist service in stable condition. Accepting physician is Dr. Rosnebaum Who agreed to set the patient to their service. Chest X-Ray 08/01/18 02:39 IMPRESSION: No acute abnormality. D/ / Bennie Thomas MD / Bennie Thomas MD Interpreting Provider: Bennie Thomas MD - Medical Records Medical records reviewed: Yes I reviewed the patient's medical records. - Lab Data Lab results reviewed: Yes I reviewed the patient's lab results. Result diagrams: 08/01/18 02:45 08/01/18 02:45 Lab Results 08/01/18 08/01/18 08/01/18 Range/Units 02:45 02:45 02:45 WBC 6.6 (4.3-11.1) K/mcL RBC 5.01 H (3.82-4.97) M/mcL Hgb 14.8 (11.5-15.4) g/dL Hct 45.8 H (35.3-44.9) % MCV 91.4 (83.0-100.0) fL MCH 29.5 (28.0-33.3) pg MCHC 32.3 (31.6-35.5) g/dL RDW 14.1 (11.5-14.5) % Plt Count 117 L (140-400) K/mcL MPV 12.7 H (9.4-12.4) fL Immature Gran % 0.2 (0-4) % Seg Neutrophils % 75.8 % Lymphocytes % 16.7 % Monocytes % 5.7 % Eosinophils % 1.4 % Basophils % 0.2 % Neutrophils # 5.0 (1.6-8.9) K/mcL Lymphocytes # 1.1 (0.6-4.6) K/mcL Monocytes # 0.4 (0.0-1.3) K/mcL Eosinophils # 0.1 (0.0-0.6) K/mcL Basophils # 0.0 (0.0-0.2) K/mcL D-Dimer 605 H (0-500) ng/mLFEU Sodium 140 (136-145) mEq/L Potassium 3.8 (3.5-5.1) mEq/L Chloride 108 H (98-107) mEq/L Carbon Dioxide 23 (23-29) mEq/L BUN 21 (8-23) mg/dL Creatinine 1.20 (0.60-1.20) mg/dL Est GFR ( Amer) 52 L (> 60) Est GFR (Non-Af Amer) 43 L (> 60) BUN/Creatinine Ratio 18 (6-26) Glucose 125 H (70-105) mg/dL Calculated Osmolality 294 (280-300) Calcium 8.7 (8.6-10.3) mg/dL Troponin I < 0.03 (< 0.04) ng/mL - Radiology Data Radiology results reviewed: Yes I reviewed the patient's radiology results. - EKG Data EKG attestation: Yes I reviewed and interpreted this EKG. EKG results narrative: EKG done at 0-34 review myself and the attending shows sinus rhythm a rate of 94, left axis deviation. Is no acute ST changes no acute T-wave changes no other signs of ischemia. No signs of hypertrophy, heart strain, heart block. No WPW/Brugada/HOCM. No old EKG to compare with Critical Care Time Critical Care Time: Yes Total Critical Care Time: 35 Attestation: Acute hypoxia with shortness of breath. Attestation Statement - Attestation Attestation: DR Saavedra note: Pt seen in conjunction w/ Resident Dr Todd Kwon; please see his charting for complete documentation. I spent [id number] time with the patient and agree with the patient's treatment and disposition. Shortness of breath and body aches since mid-day today. Hypoxia noted. Patient to keep it on arrival. She will need admitted for oxygen saturation and further care. No focal process noted on x-ray. Chronic smoker. Blood work reviewed
--- NOTE | 2018-08-01 10:09 | Internal Med History&Physical ---
Date of Encounter: 08/01/18 Time of Encounter: 08:00 Internal Medicine - H&P: HPI Chief complaint: Shortness of breath Admitted From: Home Plans for Post Hospital Care: Home History of present illness: Patient is an 83-year-old female with past medical history significant for being a 60 pack year smoker with COPD, hypertension and CKD 3 who presents to the ER due to shortness of breath. Patient reports that this morning, she was awakened by difficulty breathing with productive cough (clear sputum). Her breathing did not improve so she decided to call her son to bring her into the ER for further evaluation. Patient does report of a sick contact as she has a friend that she was around who has bronchitis. In the ER, patient was found to be in acute hypoxic respiratory failure acquired 2 L nasal cannula. Patient is afebrile without leukocytosis and chest x-ray negative for any infiltrates. She will be admitted for COPD exacerbation. Past Med Surg Social Fam HX - Past Medical History Medical history: COPD, hypertension, other Additional medical history: vertigo Psychiatric history: no psych history - Past Surgical History Surgical History: appendectomy - Social History Smoking Status: Current every day smoker Smokeless Tobacco Status: No Alcohol use: none Drug use: none - Family History Father Family Member Ethnicity: Non- Living Status: Mother Family Member Ethnicity: Non- Living Status: Brother Adopted: No Family Member Ethnicity: Non- Living Status: Hx Family Endocrine Disorder: Yes (DM) Sister Family Member Ethnicity: Non- Living Status: Hx Family Cardiac Disorders: Yes (CAD) Hx Family Cancer: Yes (Breast) Hx Family Endocrine Disorder: Yes (DM) Internal Medicine - H&P: Meds Losartan Potassium [Cozaar] 50 mg PO DAILY 07/09/18 [History] Atenolol [Tenormin] 25 mg PO DAILY 08/01/18 [History] Budesonide/Formoterol 80/4.5 [Symbicort 80/4.5] 2 puff IH BID 08/01/18 [History] Cholecalciferol (D-3) [Vitamin D] 5,000 unit PO DAILY 08/01/18 [History] Allergy/AdvReac Type Severity Reaction Status Date / Time No Known Allergies Allergy Verified 07/24/18 10:14 All Systems PM: A 10-system review of systems was performed and is negative for pertinent findings except as documented above in the HPI. - Constitutional Vitals: Temp Pulse Resp BP Pulse Ox 97.9 F 83 16 133/53 93 08/01/18 08:24 08/01/18 08:24 08/01/18 08:24 08/01/18 08:24 08/01/18 09:07 Exam: General appearance: Present: A&O X 3, no acute distress - Head Head exam: Present: normocephalic - Eye Eye exam: Present: normal appearance - ENT ENT exam: Present: mucous membranes moist - Respiratory Respiratory exam: Present: CTAB. Absent: accessory muscle use, rales, rhonchi, wheezes - Cardiovascular Cardiovascular exam: Present: RRR, +S1, +S2. Absent: diastolic murmur, gallop, rubs, systolic murmur - GI/Abdominal GI/Abdominal exam: Present: normal bowel sounds, soft, no peritoneal signs. Absent: distended, tenderness - Extremities Exam Extremities exam: Absent: pedal edema - Neurological Exam Neurological exam: Present: alert, oriented X3, no focal deficits. Absent: altered - Psychiatric Psychiatric exam: -normal mood Skin exam: -normal color Internal Med - H&P Results - Labs CBC & Chem 7: 08/01/18 02:45 08/01/18 02:45 Labs: Short CBC 08/01/18 Range/Units 02:45 WBC 6.6 (4.3-11.1) K/mcL Hgb 14.8 (11.5-15.4) g/dL Hct 45.8 H (35.3-44.9) % Plt Count 117 L (140-400) K/mcL Neutrophils # 5.0 (1.6-8.9) K/mcL BMP 08/01/18 02:45 Sodium 140 Potassium 3.8 Chloride 108 H Carbon Dioxide 23 BUN 21 Creatinine 1.20 Glucose 125 H Calcium 8.7 Cardiac Enzymes 08/01/18 Range/Units 02:45 Troponin I < 0.03 (< 0.04) ng/mL - Impressions ITS Impressions Chest X-Ray 08/01/18 02:39 IMPRESSION: No acute abnormality. D/ / Bennie Thomas MD / Bennie Thomas MD Interpreting Provider: Bennie Thomas MD - Assessment and Plan (1) Acute respiratory failure with hypoxia Current Visit: Yes Status: Acute Assessment and plan: Patient reports of a one-day history of shortness of breath and productive cough and found to have acute hypoxic respiratory failure secondary to COPD exacerbation. She is afebrile, without leukocytosis and no infiltrates on chest x-ray. Will order respiratory panel and treat COPD exacerbation as below Will wean O2 as tolerates. (2) COPD exacerbation Current Visit: Yes Status: Acute Assessment and plan: Will continue scheduled DuoNeb's and IV Solu-Medrol started in the ER in addition to initiating IV azithromycin Chest X-ray negative and respiratory panel pending as above (3) CKD (chronic kidney disease) stage 3, GFR 30-59 ml/min Current Visit: No Status: Chronic Assessment and plan: Stable; continue to monitor (4) HTN (hypertension) Current Visit: No Status: Chronic Assessment and plan: Continue home medications Qualifiers: Hypertension type: essential hypertension Qualified Code(s): I10 - Essential (primary) hypertension (5) DVT prophylaxis Current Visit: No Status: Acute Assessment and plan: Subcutaneous heparin - Time Spent With Patient Total time spent is greater than 50% in coordination of care (as documented) at patient's floor/unit and/or counseling patient:
[2018-08-01] MEDS ORDERED: Naloxone 0.4 MG/ML INJ IVP PRN (10:24)
[2018-08-01] MEDS: Ipratropium/Albuterol Neb 3 ML IH SCH ×4 (11:12→23:41)
[2018-08-01] MEDS: Azithromycin 500 MG in D5% in Water 250 ML IVPB SCH (11:44)
[2018-08-01 13:42] LABS: Adenovirus Not Detected (Not Detect)
[2018-08-01 13:43] LABS: Bordetella Pertussis Not Detected (Not Detect); Chlamydophila pneumoniae Not Detected (Not Detect); Coronavirus 229E Not Detected (Not Detect); Coronavirus HKU1 Not Detected (Not Detect); Coronavirus NL63 Not Detected (Not Detect); Coronavirus OC43 DETECTED (Not Detect); Human Metapneumovirus Not Detected (Not Detect); Human Rhinovirus/Enterovirus Not Detected (Not Detect); Influenza A Subtype 2009 H1 Not Detected (Not Detect); Influenza A Untypeable Not Detected (Not Detect); Influenza B Not Detected (Not Detect); Mycoplasma pneumoniae Not Detected (Not Detect); Parainfluenza Virus 1 Not Detected (Not Detect); Parainfluenza Virus 2 Not Detected (Not Detect); Parainfluenza Virus 3 Not Detected (Not Detect); Parainfluenza Virus 4 Not Detected (Not Detect); Respiratory Syncytial Virus Not Detected (Not Detect)
[2018-08-01] MEDS: *HR* Heparin 5,000 UNIT/ML VIAL SQ SCH (16:49)
[2018-08-01] MEDS: methylPREDNISolone 125 MG/2 ML VIAL IVP SCH (16:49)
[2018-08-01] MEDS: Budesonide/Formoterol 80/4.5 MDI IH SCH (20:57)
[2018-08-02] MEDS: methylPREDNISolone 125 MG/2 ML VIAL IVP SCH ×3 (00:18→15:44)
[2018-08-02] MEDS: Ipratropium/Albuterol Neb 3 ML IH SCH ×6 (03:30→19:36)
[2018-08-02] MEDS: *HR* Heparin 5,000 UNIT/ML VIAL SQ SCH ×2 (05:59→18:38)
[2018-08-02 06:22] LABS: Hematocrit 40.3 % (35.3-44.9); Immature Granulocytes % 0.6 % (0-4); Lymphocytes # 0.4 K/mcL (0.6-4.6); Lymphocytes % 3.5 %; Mean Corpuscular HGB Conc 32.3 g/dL (31.6-35.5); Mean Corpuscular Hemoglobin 29.6 pg (28.0-33.3); Mean Corpuscular Volume 91.8 fL (83.0-100.0); Mean Platelet Volume 13.4 fL (9.4-12.4); Monocytes # 0.3 K/mcL (0.0-1.3); Monocytes % 2.7 %; Neutrophils # 9.5 K/mcL (1.6-8.9); Platelet Count 121 K/mcL (140-400); Red Blood Count 4.39 M/mcL (3.82-4.97); Red Cell Distribution Width 14.3 % (11.5-14.5); Segmented Neutrophils % 93.2 %
[2018-08-02 06:41] LABS: Calcium 8.9 mg/dL (8.6-10.3); Potassium 4.3 mEq/L (3.5-5.1)
[2018-08-02] MEDS: Budesonide/Formoterol 80/4.5 MDI IH SCH ×2 (07:20→19:36)
--- NOTE | 2018-08-02 07:43 | Internal Med Progress Note ---
Hospitalist Progress Note - Encounter Date of Encounter: 08/02/18 Time of Encounter: 07:40 - Subjective Interval History: Patient was seen and examined. No acute events overnight. She tested positive for del cid virus. Otherwise she is being treated for COPD exacerbation. Not on home O2. She is on 2 L and drops into the 80s when taken off oxygen. Afebrile. Blood pressure is borderline. - Exam Vitals: Temp Pulse Resp BP Pulse Ox 97.8 F 93 16 97/59 96 08/02/18 06:56 08/02/18 06:56 08/02/18 06:56 08/02/18 06:56 08/02/18 06:56 Exam: GEN: NAD CVS: RRR. S1, S2, No m/r/g RESP: CTAB ABD: Soft, NT, ND, +BS EXT: No edema. 2+ DP. No rashes NEURO: Nonfocal - Assessment and Plan (1) Acute respiratory failure with hypoxia Current Visit: Yes Status: Acute Assessment and Plan: Continues to need 2 L nasal cannula oxygen. We will try to wean as tolerated. She sounds better in terms of respiratory examination. She dropped to the 80s however when we get her off oxygen. She does have elevated D dimers but normal for age adjusted level. (2) COPD exacerbation Current Visit: Yes Status: Acute Assessment and Plan: Continue IV Solu-Medrol 60 every 8. Also on a Zithromax. Continue nebs scheduled. O2 support and wean as tolerated. (3) CKD (chronic kidney disease) stage 3, GFR 30-59 ml/min Current Visit: No Status: Chronic Assessment and Plan: Stable. Can continue to monitor. (4) HTN (hypertension) Current Visit: No Status: Chronic Assessment and Plan: Blood pressure is borderline for now. Hold antihypertensives. (5) DVT prophylaxis Current Visit: No Status: Acute Assessment and Plan: Subcutaneous heparin - Time Spent with Patient Total time spent is greater than 50% in coordination of care (as documented) at patient's floor/unit and/or counseling patient: Internal Medicine: Result - Labs CBC & Chem 7: 08/02/18 05:35 08/02/18 05:35 Labs: Short CBC 08/02/18 Range/Units 05:35 WBC 10.2 D (4.3-11.1) K/mcL Hgb 13.0 D (11.5-15.4) g/dL Hct 40.3 (35.3-44.9) % Plt Count 121 L (140-400) K/mcL Neutrophils # 9.5 H (1.6-8.9) K/mcL BMP 08/02/18 05:35 Sodium 142 Potassium 4.3 Chloride 109 H Carbon Dioxide 24 BUN 30 H Creatinine 1.23 H Glucose 157 H Calcium 8.9 - ABG Interpretation ABG results: PT/INR, D-dimer D-Dimer 605 ng/mLFEU (0-500) H 08/01/18 02:45 Consult Discharge Plan - Plan Referrals: Juan R Kaminski MD [Primary Care Provider] - (4) HTN (hypertension) Qualifiers: Hypertension type: essential hypertension Qualified Code(s): I10 - Essential (primary) hypertension
--- NOTE | 2018-08-02 08:32 | Electrocardiograph Report ---
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
[2018-08-02] MEDS: Cholecalciferol (D-3) 1,000 UNIT TABLET PO SCH (08:58)
[2018-08-02] MEDS: Azithromycin 500 MG in D5% in Water 250 ML IVPB SCH (11:36)
[2018-08-03] MEDS: Ipratropium/Albuterol Neb 3 ML IH SCH ×4 (00:09→11:12)
[2018-08-03] MEDS: methylPREDNISolone 125 MG/2 ML VIAL IVP SCH ×2 (00:32→07:49)
[2018-08-03 05:19] LABS: Basophils % 0.1 %; Hematocrit 42.5 % (35.3-44.9); Hemoglobin 13.6 g/dL (11.5-15.4); Immature Granulocytes % 0.5 % (0-4); Lymphocytes # 0.6 K/mcL (0.6-4.6); Lymphocytes % 4.1 %; Mean Corpuscular Hemoglobin 29.6 pg (28.0-33.3); Mean Corpuscular Volume 92.6 fL (83.0-100.0); Mean Platelet Volume 13.2 fL (9.4-12.4); Monocytes # 0.4 K/mcL (0.0-1.3); Neutrophils # 12.5 K/mcL (1.6-8.9); Platelet Count 133 K/mcL (140-400); Red Blood Count 4.59 M/mcL (3.82-4.97); Red Cell Distribution Width 14.8 % (11.5-14.5); Segmented Neutrophils % 92.3 %
[2018-08-03 05:33] LABS: Calcium 8.9 mg/dL (8.6-10.3); Magnesium 2.1 mg/dL (1.6-2.6)
[2018-08-03] MEDS: *HR* Heparin 5,000 UNIT/ML VIAL SQ SCH (05:35)
[2018-08-03 06:42] VITALS: BP 123/77
[2018-08-03] MEDS: Budesonide/Formoterol 80/4.5 MDI IH SCH (07:31)
[2018-08-03] MEDS: Cholecalciferol (D-3) 1,000 UNIT TABLET PO SCH (07:48)
--- NOTE | 2018-08-03 09:10 | Discharge Summary ---
Date of Encounter: 08/03/18 Time of Encounter: 09:06 - Discharge Diagnosis (1) Acute respiratory failure with hypoxia Priority: Primary Status: Acute (2) COPD exacerbation Priority: Primary Status: Acute (3) CKD (chronic kidney disease) stage 3, GFR 30-59 ml/min Priority: Secondary Status: Chronic (4) HTN (hypertension) Priority: Secondary Status: Chronic Qualifiers: Hypertension type: essential hypertension Qualified Code(s): I10 - Essential (primary) hypertension Hospital course: Ms. Stahl is a 83 year old female with PMH significant for previous tobacco abuse, COPD, HTN, CKD 3 who presented with shortness of breath. Tested + for coronavirus while here. Was treated for COPD exacerbation with IV steroids and nebs. Was also on azithromax. Was discharged on prednisone taper and a couple more doses of azithromax. Was being tested for O2 needs at discharge. Was set up with a nebulizer at home. Discharged on 08/03/2018 - Time Spent with Patient Total time spent providing and/or coordinating discharge services: Time spent: Greater than 30 minutes - Discharge Medications Prescriptions: New Azithromycin 250 mg PO DAILY #2 tablet Ipratropium/Albuterol Neb [Duoneb] 3 ml IH Q6H 30 Days #30 inhsol predniSONE [PredniSONE] See Taper PO TAPER #30 tablet Continue Losartan Potassium [Cozaar] 50 mg PO DAILY Atenolol [Tenormin] 25 mg PO DAILY Cholecalciferol (D-3) [Vitamin D] 5,000 unit PO DAILY Budesonide/Formoterol 80/4.5 [Symbicort 80/4.5] 2 puff IH BID Home Medications: Losartan Potassium [Cozaar] 50 mg PO DAILY 07/09/18 [History] Atenolol [Tenormin] 25 mg PO DAILY 08/01/18 [History] Budesonide/Formoterol 80/4.5 [Symbicort 80/4.5] 2 puff IH BID 08/01/18 [History] Cholecalciferol (D-3) [Vitamin D] 5,000 unit PO DAILY 08/01/18 [History] Azithromycin 250 mg PO DAILY #2 tablet 08/03/18 [Rx] Ipratropium/Albuterol Neb [Duoneb] 3 ml IH Q6H 30 Days #30 inhsol 08/03/18 [Rx] predniSONE [PredniSONE] See Taper PO TAPER #30 tablet 08/03/18 [Rx] Allergies/Adverse Reactions: Allergy/AdvReac Type Severity Reaction Status Date / Time No Known Allergies Allergy Verified 07/24/18 10:14 Date of admission: 08/01/18 04:39 Primary care physician: Juan R Kaminski MD Consults: 08/02/18 07:44 Consult to Occupational Therapy [CONS] Routine Comment: Evaluate, develop and implement POC Reason for Consult: therapy/placement needs Does patient have active BEDREST order?: No Is patient medically & hemodynamically stable?: Yes Consult to Physical Therapy [CONS] Routine Comment: Evaluate, develop and implement POC Reason for Consult: PT eval Does patient have active BEDREST order?: No Is patient medically & hemodynamically stable?: Yes 08/02/18 08:23 Consult to Nurse Navigator [CONS] Routine Comment: copd - Constitutional Vitals: Temp Pulse Resp BP Pulse Ox 97.9 F 91 18 123/77 98 08/03/18 06:41 08/03/18 06:41 08/03/18 07:31 08/03/18 06:41 08/03/18 07:31 Exam: GEN: NAD CVS: RRR. S1, S2, No m/r/g RESP: CTAB ABD: Soft, NT, ND, +BS EXT: No edema. 2+ DP. No rashes NEURO: Nonfocal - Patient Status Disposition: Home, Self-Care Condition: Fair - Discharge Instructions Follow Up With: Juan R Kaminski MD [Primary Care Provider] - - Diet and Activity Activity: increase activity as tolerated Diet: regular diet
== END 2018-08-03 12:17 | disposition home or self-care (01) | DRG 189 ==
LOC: EMEROOARM 02:22 → 2SOUTHHOLD 02:22 → OBSVTOIN 04:39 → 2SOUTHHOLD 05:31 → 3ANU 20:35
PROVIDERS: ADMIT Internal Medicine; ATTEND Internal Medicine

== ENCOUNTER 2018-09-03 14:02 | Observation (INO) ==
[2018-09-03] MEDS ORDERED: Ipratropium/Albuterol Neb 3 ML IH ONE (14:07)
[2018-09-03] MEDS ORDERED: methylPREDNISolone 125 MG/2 ML VIAL IVP ONE (14:07)
--- NOTE | 2018-09-03 14:11 | Emergency Department Note ---
Disposition Clinical Impression: COPD exacerbation, Pneumonia due to aerobic bacteria Disposition: Admitted As Inpatient General Adult HPI - General Stated complaint: SOB Time Seen by Provider: 09/03/18 14:05 Source: patient, EMS Mode of arrival: EMS Limitations: no limitations Nursing Notes Reviewed: Yes Vital Signs Reviewed: Yes - History of Present Illness HPI Narrative: Attestation note: Patient was seen with the emergency medicine resident/nurse practitioner/physician assistant head cashier/transitional resident/medical student: Dr. Todd Kwon I have personally performed a face to face evaluation on this patient. I have reviewed and agree with history and physical examination patient management and disposition. Briefly the salient points of the case are as follows: 83-year-old female COPD but not on home O2 recently treated outpatient on clindamycin for pneumonia increasing shortness breath cough weakness and fatigue feels that she is getting worse comes and tachypnea can tachycardic slightly hypoxic expiratory wheezing. Patient will get DuoNeb's chest x-ray screening labs IV steroids antibiotics and admission. Providing 35 minutes critical care service this patient. Disposition pending - Related Data Home Medications Medication Instructions Recorded Confirmed Losartan Potassium [Cozaar] 50 mg PO DAILY 07/09/18 08/01/18 Atenolol [Tenormin] 25 mg PO DAILY 08/01/18 08/01/18 Budesonide/Formoterol 80/4.5 2 puff IH BID 08/01/18 08/01/18 [Symbicort 80/4.5] Cholecalciferol (D-3) [Vitamin D] 5,000 unit PO DAILY 08/01/18 08/01/18 Previous Rx's Medication Instructions Recorded Azithromycin 250 mg PO DAILY #2 tablet 08/03/18 predniSONE [PredniSONE] See Taper PO TAPER #30 tablet 08/03/18 Allergies Allergy/AdvReac Type Severity Reaction Status Date / Time No Known Allergies Allergy Verified 07/24/18 10:14 Past Medical History - Past Medical History Medical history: Reports: COPD, hypertension, other Surgical history: Reports: appendectomy Psychiatric history: Reports: no psych history - Social History Smoking Status: Current every day smoker Smokeless Tobacco Status: No Alcohol use: Reports: none Drug use: Reports: none
[2018-09-03 14:35] LABS: Basophils % 0.3 %; Eosinophils # 0.1 K/mcL (0.0-0.6); Eosinophils % 1.6 %; Hemoglobin 13.9 g/dL (11.5-15.4); Immature Granulocytes % 0.9 % (0-4); Lymphocytes % 14.6 %; Mean Corpuscular HGB Conc 31.6 g/dL (31.6-35.5); Mean Corpuscular Hemoglobin 28.4 pg (28.0-33.3); Mean Corpuscular Volume 89.8 fL (83.0-100.0); Mean Platelet Volume 11.7 fL (9.4-12.4); Monocytes # 0.4 K/mcL (0.0-1.3); Monocytes % 6.5 %; Neutrophils # 5.2 K/mcL (1.6-8.9); Platelet Count 239 K/mcL (140-400); Red Cell Distribution Width 14.7 % (11.5-14.5); Segmented Neutrophils % 76.1 %
[2018-09-03 14:57] LABS: BUN/Creatinine Ratio 18 (6-26); Blood Urea Nitrogen 22 mg/dL (8-23); Calcium 9.2 mg/dL (8.6-10.3); Carbon Dioxide 26 mEq/L (23-29); Chloride 102 mEq/L (98-107); Glucose 121 mg/dL (70-105); Osmolality,Calculated 293 (280-300); Potassium 4.2 mEq/L (3.5-5.1); Sodium 139 mEq/L (136-145); eGFR For Non-African Americans 43 (> 60)
[2018-09-03 14:58] LABS: Troponin I < 0.03 ng/mL (< 0.04)
[2018-09-03] MEDS ORDERED: Levofloxacin 750 MG/150 ML 750 MG/150 ML BAG IVPB ONE (15:48)
[2018-09-03] MEDS ORDERED: Ondansetron 4 MG/2 ML VIAL IVP ONE (15:50)
[2018-09-03] MEDS ORDERED: 0.9 % Sodium Chloride 500 ML IVC ONE (15:50)
--- NOTE | 2018-09-03 15:52 | Emergency Department Note ---
Disposition Clinical Impression: COPD exacerbation, Pneumonia due to aerobic bacteria Disposition: Admitted As Inpatient Condition: Fair Forms: ED Satisfaction Letter Time of Disposition: 15:56 SOB HPI - General Chief Complaint: ED Shortness of Breath/Dyspnea Stated Complaint: SOB Time Seen by Provider: 09/03/18 14:05 Source: patient, EMS Mode of arrival: ambulatory Limitations: no limitations Nursing Notes Reviewed: Yes Vital Signs Reviewed: Yes - History of Present Illness 82-year-old female presenting to the emergency prior for hypoxia worsening shortness of breath and possible pneumonia. She was seen at her primary care physician approximately 2 days ago diagnosed with pneumonia sent home with clindamycin. Has been taking a prescription since yesterday said that she continues to be shortness breath continues to not feel well so she came here. She did not know any fevers. Says she is coughing up sputum says it is yellow in color. She did become mildly hypoxic at she was 90% when EMS arrived. Does have history of COPD he uses inhalers but not does not use oxygen or nebulizers. She is not complaining of any chest pain. Says she has a mild headache but since getting on the oxygen said that feels much better at this time. Otherwise patient has no other complaints at this time. She has not been a long car rides on plane rise never had any blood clots no unilateral leg swelling nor no recent hormone use or cancer diagnoses. Otherwise patient is no other complaints. - Related Data Home Medications Medication Instructions Recorded Confirmed Losartan Potassium [Cozaar] 50 mg PO DAILY 07/09/18 08/01/18 Atenolol [Tenormin] 25 mg PO DAILY 08/01/18 08/01/18 Budesonide/Formoterol 80/4.5 2 puff IH BID 08/01/18 08/01/18 [Symbicort 80/4.5] Cholecalciferol (D-3) [Vitamin D] 5,000 unit PO DAILY 08/01/18 08/01/18 Previous Rx's Medication Instructions Recorded Azithromycin 250 mg PO DAILY #2 tablet 08/03/18 predniSONE [PredniSONE] See Taper PO TAPER #30 tablet 08/03/18 Allergies Allergy/AdvReac Type Severity Reaction Status Date / Time No Known Allergies Allergy Verified 07/24/18 10:14 All systems ED: reviewed and negative except as stated. Review of Systems: As Per HPI Past Medical History - Past Medical History Attestation: Yes The following information was validated with the patient. Source: patient Medical history: Reports: COPD, hypertension, other Surgical history: Reports: appendectomy Psychiatric history: Reports: no psych history - Social History Smoking Status: Current every day smoker Smokeless Tobacco Status: No Alcohol use: Reports: none Drug use: Reports: none Physical Exam - General Limitations: no limitations General appearance: alert, in no apparent distress - Head Head exam: atraumatic, normocephalic, normal inspection - Eye Eye exam: Present: normal appearance, PERRL, EOMI - ENT ENT exam: normal exam, normal oropharynx, mucous membranes moist - Neck Neck exam: Present: normal inspection, full ROM, trachea midline - Chest Chest inspection: Present: normal inspection, symmetric chest wall rise - Respiratory Respiratory exam: Present: normal lung sounds bilaterally, wheezes (And rhonchi bilaterally.). Absent: respiratory distress, accessory muscle use - Cardiovascular Cardiovascular exam: Present: regular rate, normal rhythm, normal heart sounds - Abdominal Exam Abdominal exam: Present: soft, Non-Tender, normal bowel sounds. Absent: tenderness, distention, guarding, rebound, rigidity - Extremities Exam Extremities exam: Present: normal inspection, full ROM. Absent: tenderness, pedal edema - Back Exam Back exam: Present: normal inspection, full ROM. Absent: tenderness, CVA tenderness (R), CVA tenderness (L) - Neurological Exam Neurological exam: Present: alert, oriented X3 - Skin Skin exam: Present: warm, dry, intact, normal color Course Vital Signs Temperature 97.6 F 09/03/18 14:13 Pulse Rate 78 09/03/18 14:13 Respiratory Rate 20 09/03/18 14:13 Blood Pressure 143/81 09/03/18 14:13 O2 Sat by Pulse Oximetry 99 09/03/18 14:13 Temperature 97.6 F 09/03/18 14:13 Pulse Rate 76 09/03/18 15:15 Respiratory Rate 16 09/03/18 15:18 Blood Pressure 130/79 09/03/18 15:15 O2 Sat by Pulse Oximetry 99 09/03/18 15:18 Oxygen Delivery Oxygen Delivery Room Air Shortness of Breath/Dyspnea - MDM Narrative Medical decision making narrative: Patient presented here with pneumonialike symptoms. Was diagnosed the pneumonia is not getting better on outpatient treatment including clindamycin. Patient was hypoxic in the 90s prior to her arrival since being on oxygen she has been 99% and breathing comfortably. She is not a risk story distress. Patient's chest x-ray did show a pneumonia. She felt outpatient treatments we will give patient IV antibiotics. We will start her on Levaquin. Labs all came back without any acute abnormalities. Patient feel needs to be admitted to the hospitalist service due to needing IV antibiotics as she failed outpatient. I spoke with the hospitalist Dr. Lakhani who agreed to admit the patient to their service. Patient admitted in stable condition. Chest X-Ray 09/03/18 14:06 IMPRESSION: New mild left basilar airspace disease, atelectasis or pneumonia. D/ / Dennise Gillespie Cha, MD / Dennise Gillespie Cha, MD Interpreting Provider: Dennise Gillespie Cha, MD - Medical Records Medical records reviewed: Yes I reviewed the patient's medical records. - Lab Data Lab results reviewed: Yes I reviewed the patient's lab results. Result diagrams: 09/03/18 14:22 09/03/18 14:22 Lab Results 09/03/18 09/03/18 Range/Units 14:22 14:22 WBC 6.8 (4.3-11.1) K/mcL RBC 4.90 (3.82-4.97) M/mcL Hgb 13.9 (11.5-15.4) g/dL Hct 44.0 (35.3-44.9) % MCV 89.8 (83.0-100.0) fL MCH 28.4 (28.0-33.3) pg MCHC 31.6 (31.6-35.5) g/dL RDW 14.7 H (11.5-14.5) % Plt Count 239 (140-400) K/mcL MPV 11.7 (9.4-12.4) fL Immature Gran % 0.9 (0-4) % Seg Neutrophils % 76.1 % Lymphocytes % 14.6 % Monocytes % 6.5 % Eosinophils % 1.6 % Basophils % 0.3 % Neutrophils # 5.2 (1.6-8.9) K/mcL Lymphocytes # 1.0 (0.6-4.6) K/mcL Monocytes # 0.4 (0.0-1.3) K/mcL Eosinophils # 0.1 (0.0-0.6) K/mcL Basophils # 0.0 (0.0-0.2) K/mcL Sodium 139 (136-145) mEq/L Potassium 4.2 (3.5-5.1) mEq/L Chloride 102 (98-107) mEq/L Carbon Dioxide 26 (23-29) mEq/L BUN 22 (8-23) mg/dL Creatinine 1.19 (0.60-1.20) mg/dL Est GFR ( Amer) 53 L (> 60) Est GFR (Non-Af Amer) 43 L (> 60) BUN/Creatinine Ratio 18 (6-26) Glucose 121 H (70-105) mg/dL Calculated Osmolality 293 (280-300) Calcium 9.2 (8.6-10.3) mg/dL Troponin I < 0.03 (< 0.04) ng/mL - Radiology Data Radiology results reviewed: Yes I reviewed the patient's radiology results. - EKG Data EKG attestation: Yes I reviewed and interpreted this EKG. EKG results narrative: EKG done at 1411 review myself and the attending shows sinus rhythm at a rate of 80, SC interval 1:30, QRS 77, QTC 503. Is no acute ST changes no acute T-wave changes no signs of ischemia. No signs of heart block. There is left ventricular hypertrophy but no other heart strain. No wPW/Brugada/HOCM EKG is unchanged when compared with old EKG done 08/01/18.
[2018-09-03] MEDS ORDERED: Naloxone 0.4 MG/ML INJ IVP PRN (16:29)
[2018-09-03] MEDS ORDERED: cefTRIAXone 2,000 MG in Water for inj. (sterile) 20 ML 20 ML IVP SCH (17:00)
--- NOTE | 2018-09-03 17:00 | Internal Med History&Physical ---
Date of Encounter: 09/03/18 Time of Encounter: 17:01 Internal Medicine - H&P: HPI Chief complaint: productive cough History of present illness: Ms. Stahl is a 83 year old female PMH significant for previous tobacco abuse, COPD, HTN, CKD 3 who presented with productive cough. As per patient her symptoms started about a week ago and there progressively worsening. She reports that she has been having fever, chills and more weak than usual so she visited her primary care physician and was found to have pneumonia. She was started on clindamycin and took her first dose one day prior to admission without significant improvement in her symptoms so she decided to come to the emergency department for further evaluation and management of her productive cough and fever. She cannot recall alleviating or exacerbating factors. She does have history of COPD and was a former smoker quit recently and is on Chantix. She denies sick contacts, nausea, vomiting or diarrhea but she does report abdominal pain since she started clindamycin. She denies recent travels, calf tenderness, calf swelling or chest pain or palpitations. As per chart review she was tested + for coronavirus while admitted in July 2017. Was treated for COPD exacerbation with IV steroids and nebs. She denies hemoptysis and reports that she had a recent CAT scan performed on 09/01. Past Med Surg Social Fam HX - Past Medical History Medical history: COPD, hypertension, other Additional medical history: vertigo Psychiatric history: no psych history - Past Surgical History Surgical History: appendectomy - Social History Smoking Status: Current every day smoker Smokeless Tobacco Status: No Alcohol use: none Drug use: none - Family History Father Family Member Ethnicity: Non- Living Status: Mother Family Member Ethnicity: Non- Living Status: Brother Adopted: No Family Member Ethnicity: Non- Living Status: Hx Family Endocrine Disorder: Yes (DM) Sister Family Member Ethnicity: Non- Living Status: Hx Family Cardiac Disorders: Yes (CAD) Hx Family Cancer: Yes (Breast) Hx Family Endocrine Disorder: Yes (DM) Internal Medicine - H&P: Meds Losartan Potassium [Cozaar] 50 mg PO DAILY 07/09/18 [History] Atenolol [Tenormin] 25 mg PO DAILY 08/01/18 [History] Budesonide/Formoterol 80/4.5 [Symbicort 80/4.5] 2 puff IH BID 08/01/18 [History] Cholecalciferol (D-3) [Vitamin D] 5,000 unit PO DAILY 08/01/18 [History] Azithromycin 250 mg PO DAILY #2 tablet 08/03/18 [Rx] predniSONE [PredniSONE] See Taper PO TAPER #30 tablet 08/03/18 [Rx] Allergy/AdvReac Type Severity Reaction Status Date / Time No Known Allergies Allergy Verified 07/24/18 10:14 All Systems PM: A 10-system review of systems was performed and is negative for pertinent findings except as documented above in the HPI. - Constitutional Vitals: Temp Pulse Resp BP Pulse Ox 97.6 F 88 20 104/62 97 09/03/18 14:13 09/03/18 16:07 09/03/18 16:07 09/03/18 16:07 09/03/18 16:07 Exam: General: Patient is alert, oriented, no acute distress, speaks in full sentences, thin Head: atraumatic, normocephalic, Eye: normal appearance, PERRL, no scleral icterus, no conjunctival injection ENT: mucous membranes moist, normal external ear exam Neck: normal inspection, trachea midline, full ROM, no carotid bruits Chest: normal inspection, symmetric chest rise Respiratory: Good respiratory effort. Bilateral breath sounds are clear without wheezing, has crackles in the left lower posterior lung field. Cardiovascular: Regular rate and rhythm. s1 and s2 No clicks, rubs, gallops, or murmors. Abdomen: Bowel sounds present normoactive x-4 quadrants. Abdomen is soft, nondistended. no Epigastric tenderness. No guarding or rebound. No organomegaly noted musculoskeletal: Spontaneously moving all extremities. no edema, no calf ten derness Skin: warm, dry, intact. Neuro: Alert and oriented x4. No focal deficit Psych: Patient's affect is normal Internal Med - H&P Results - Labs CBC & Chem 7: 09/03/18 14:22 09/03/18 14:22 Labs: Short CBC 09/03/18 Range/Units 14:22 WBC 6.8 (4.3-11.1) K/mcL Hgb 13.9 (11.5-15.4) g/dL Hct 44.0 (35.3-44.9) % Plt Count 239 (140-400) K/mcL Neutrophils # 5.2 (1.6-8.9) K/mcL BMP 09/03/18 14:22 Sodium 139 Potassium 4.2 Chloride 102 Carbon Dioxide 26 BUN 22 Creatinine 1.19 Glucose 121 H Calcium 9.2 Cardiac Enzymes 09/03/18 Range/Units 14:22 Troponin I < 0.03 (< 0.04) ng/mL - EKG Data -: EKG Interpreted by Myself EKG shows normal: sinus rhythm (Left atrial enlargement, LVH, prolonged QT 503) - EKG Data Prior EKG available for review: yes When compared to previous EKG: there is no significant change - Impressions ITS Impressions Chest X-Ray 09/03/18 14:06 IMPRESSION: New mild left basilar airspace disease, atelectasis or pneumonia. D/ / Dennise Gillespie Cha, MD / Dennise Gillespie Cha, MD Interpreting Provider: Dennise Gillespie Cha, MD - Assessment and Plan (1) HCAP (healthcare-associated pneumonia) Current Visit: Yes Status: Acute Assessment and plan: adrien was recently admitted in 07/2018 adn respiratory vral panel was postivive for del cid virus again with SOB and productive cough- was startedon clindamycin by her PCP without significant improvement recenlt admitted in july 2018 and treated for COPD exacerbation and positive for del cid virus CXR with LLL infiltrate CT chest with cavitary lesion in the upper lobes most likley post viral PNA started on vancomycin, zosyn and doxycycline MRSA swab urine antigens sputum cx oxygen via nasal cannula to keep sats >92% duo-nebs will consult Pulmonology for possible bronch CXR: IMPRESSION: New mild left basilar airspace disease, atelectasis or pneumonia. CT chest 09/01/2018- IMPRESSION: Bilateral upper lobe focal pulmonary disease, in the acute setting favored to be due to pneumonia; central cavitation suggest necrosis. This process does not appear to been present on the recent chest x-ray from 08/01/2018 therefore pneumonia is favored. However, coexistent malignancy cannot be excluded, especially for the left upper lobe nodule which may not been visible by chest x-ray due to its small size. Recommend follow-up chest CT in 1 month after treatment for pneumonia. (2) Cavitary lung disease Current Visit: Yes Status: Acute Assessment and plan: seen on CT scan - In the right upper lobe there is an area of consolidation, withcentral small area of lucency. This process measures 2.7 x 1.8 cm transverse size and 3.7 cm craniocaudad extent. In the left upper lobe this measures 1.3 x 1.1 cm and 2.1 cm craniocaudad extent there is a small amount of atelectasis in the lingula and middle lobe as it is acute most likely secondary to PNA -This process does not appear to been present on the recent chest x-ray from 08/01/2018 therefore pneumonia is favored. management as above cannot rule out malignancy pulm consulted (3) COPD (chronic obstructive pulmonary disease) Current Visit: No Status: Acute Assessment and plan: not n exacerbation management as above Qualifiers: COPD type: unspecified COPD Qualified Code(s): J44.9 - Chronic obstructive pulmonary disease, unspecified (4) Former smoker Current Visit: Yes Status: Acute Assessment and plan: recently quit and on chantix (5) Prolonged QT interval Current Visit: Yes Status: Acute Assessment and plan: avoid QT prolonging medications magnesium ordered (6) Lung nodule Current Visit: Yes Status: Acute Assessment and plan: Recommend follow-up chest CT in 1 month after treatment for pneumonia. (7) DVT prophylaxis Current Visit: No Status: Acute Assessment and plan: heparin sc - Time Spent With Patient Total time spent is greater than 50% in coordination of care (as documented) at patient's floor/unit and/or counseling patient:
[2018-09-03] MEDS ORDERED: Piperacillin/Tazobactam 3.375 GM in 0.9 % Sodium Chloride Mini Bag 100 ML IVPB ONE (17:14)
[2018-09-03] MEDS ORDERED: Doxycycline 100 MG in 0.9 % Sodium Chloride Mini Bag 100 ML IVPB SCH (18:00)
[2018-09-03] MEDS: Doxycycline 100 MG in 0.9 % Sodium Chloride Mini Bag 100 ML IVPB SCH (20:00)
[2018-09-03] MEDS: Ipratropium/Albuterol Neb 3 ML IH SCH ×2 (20:09→23:48)
[2018-09-03] MEDS: *HR* Heparin 5,000 UNIT/ML VIAL SQ SCH (22:01)
[2018-09-04] MEDS: Ipratropium/Albuterol Neb 3 ML IH SCH ×5 (03:53→19:55)
[2018-09-04] MEDS: Doxycycline 100 MG in 0.9 % Sodium Chloride Mini Bag 100 ML IVPB SCH ×2 (05:54→18:11)
[2018-09-04] MEDS: *HR* Heparin 5,000 UNIT/ML VIAL SQ SCH ×3 (05:55→21:38)
[2018-09-04 06:19] LABS: Hemoglobin 12.6 g/dL (11.5-15.4); Mean Corpuscular HGB Conc 30.7 g/dL (31.6-35.5); Mean Corpuscular Hemoglobin 28.3 pg (28.0-33.3); Mean Corpuscular Volume 91.9 fL (83.0-100.0); Mean Platelet Volume 12.6 fL (9.4-12.4); Platelet Count 217 K/mcL (140-400); Red Blood Count 4.46 M/mcL (3.82-4.97); Red Cell Distribution Width 14.7 % (11.5-14.5)
[2018-09-04 06:29] LABS: Calcium 9.3 mg/dL (8.6-10.3); Magnesium 2.2 mg/dL (1.6-2.6); Phosphorous 3.3 mg/dL (2.7-4.5); Potassium 4.9 mEq/L (3.5-5.1)
[2018-09-04] MEDS ORDERED: predniSONE 10 MG TABLET PO SCH (09:00)
[2018-09-04] MEDS ORDERED: Azithromycin 500 MG in D5% in Water 250 ML IVPB SCH (09:00)
--- NOTE | 2018-09-04 10:19 | Electrocardiograph Report ---
[place] [id number] Test Date: 2018-09-03 Pat Name: Gloria Stahl Department: EXAM6 Room: [facility] Gender: F Contract Clerk: : 1935 Requested By: Todd Kwon Order Number: [id number] Reading MD: Mohit Lockhart Measurements Intervals [place] Rate: 80 P: 82 [place]: 130 QRS: 20 QRSD: 77 T: 80 QT: 436 QTc: 503 Interpretive Statements Sinus rhythm Probable left atrial enlargement Left ventricular hypertrophy Prolonged QT interval Electronically Signed On 09-04-2018 10:17:44 EDT by Mohit Lockhart
--- NOTE | 2018-09-04 12:20 | Internal Med Progress Note ---
Hospitalist Progress Note - Encounter Date of Encounter: 09/04/18 Time of Encounter: 12:12 - Subjective Interval History: Patient seen and examined this morning at bedside. No acute overnight events. Patient complains of my shortness of breath. Feeling slightly better. Denies any chest pain however has on and off chills. Afebrile overnight. Hemody namically stable. Denies any nausea vomiting abdominal pain bowel or bladder complaints. - Exam Vitals: Temp Pulse Resp BP Pulse Ox 97.9 F 97 16 145/53 99 09/04/18 11:13 09/04/18 11:13 09/04/18 11:20 09/04/18 11:13 09/04/18 11:20 Exam: General: In no acute distress. thin build Respiratory exam: no accessory muscle use. b/l rhonchi and rales Cardiovascular exam: RRR, +S1, +S2. no murmur, gallop, rubs. GI/Abdominal exam: Non-tender, Non-distended, normal bowel sounds, soft, no peritoneal signs. Extremities exam: no pedal edema, pulses palpable in b/l lower extremities. no calf tenderness Neurological exam: CN II-XII intact, AO X3, no focal deficits. Skin exam: No skin rash - Assessment and Plan (1) COPD (chronic obstructive pulmonary disease) Current Visit: No Status: Acute (2) DVT prophylaxis Current Visit: No Status: Acute (3) Former smoker Current Visit: Yes Status: Acute (4) Prolonged QT interval Current Visit: Yes Status: Acute (5) HCAP (healthcare-associated pneumonia) Current Visit: Yes Status: Acute (6) Cavitary lung disease Current Visit: Yes Status: Acute (7) Lung nodule Current Visit: Yes Status: Acute - Summary of Assessment and Plan Summary of Assessment and Plan: Assessment HCAP Cavitary lung disease COPD Prolonged QT interval Lung nodule DVT prophylaxis HTN CKD 3 Plan - Patient likely has secondary bacterial infection on recent viral pneumonia. Patient started on broad-spectrum antibiotics. Vancomycin and Zosyn and doxycycline. Currently patient on vancomycin and doxycycline. We will resume Zosyn. Follow up blood and sputum cultures. Chest x-ray showed new mid left basilar airspace disease. Patient also was found to have a cavitary lesion in right upper lobe in her recent CT. This could possibly from pneumonia however we will consult pulmonology for further evaluation for malignancy as well. - Nasal MRSA screening and urinary antigens negative. - Continue scheduled bronchodilators and maintenance IV fluids for now. c/w home inhalers - Monitor renal function closely given patient on vancomycin and Zosyn along with history of CKD. She did have some worsening of creatinine today comparatively. - avoid QT prolonging medications. - Discussed code status and patient wants to be full code. - Time Spent with Patient Total time spent is greater than 50% in coordination of care (as documented) at patient's floor/unit and/or counseling patient: Internal Medicine: Result - Labs CBC & Chem 7: 09/04/18 05:27 09/04/18 05:27 Labs: Short CBC 09/03/18 09/04/18 Range/Units 14:22 05:27 WBC 6.8 7.6 (4.3-11.1) K/mcL Hgb 13.9 12.6 (11.5-15.4) g/dL Hct 44.0 41.0 (35.3-44.9) % Plt Count 239 217 (140-400) K/mcL Neutrophils # 5.2 (1.6-8.9) K/mcL BMP 09/03/18 09/04/18 14:22 05:27 Sodium 139 143 Potassium 4.2 4.9 Chloride 102 105 Carbon Dioxide 26 26 BUN 22 23 Creatinine 1.19 1.36 H Glucose 121 H 194 H Calcium 9.2 9.3 Cardiac Enzymes 09/03/18 Range/Units 14:22 Troponin I < 0.03 (< 0.04) ng/mL - Impressions Impressions Chest X-Ray 09/03/18 14:06 IMPRESSION: New mild left basilar airspace disease, atelectasis or pneumonia. D/ / Dennise Gillespie Cha, MD / Dennise Gillespie Cha, MD Interpreting Provider: Dennise Gillespie Cha, MD Consult Discharge Plan - Plan Referrals: Juan R Kaminski MD [Primary Care Provider] - ____ (1) COPD (chronic obstructive pulmonary disease) Qualifiers: COPD type: unspecified COPD Qualified Code(s): J44.9 - Chronic obstructive pulmonary disease, unspecified
--- NOTE | 2018-09-04 12:29 | Pulmonology Consult Note ---
Date of Encounter: 09/04/18 Time of Encounter: 12:00 Assessment and Plan (1) COPD exacerbation Current Visit: Yes Status: Acute Patient has significant COPD with emphysema current presentation is due to possible bacterial exacerbation of COPD to continue bronchodilators and steroids patient will be needing albuterol nebulizer, Symbicort and 2 week Prednisone taper on discharge. (2) Cavitary lung disease Current Visit: Yes Status: Acute Patient is bilateral apical cavitating lung disease most likely secondary to bacterial pneumonia failing outpatient antibiotic therapy agree with broad- spectrum antibiotics we will check pro-calcitonin. Low probability for tuberculosis wont do droplet isolation. Will do broad-spectrum antibiotics will get nasal MRSA swab de-escalate antibiotics according to response patient will need to repeat CT scan and 6 weeks. Will need outpatient follow-up in first week of October. History of Present Illness Consult date: 09/04/18 Requesting physician: Ronnie Rodriguez Reason for consult: COPD, pneumonia Chief complaint: Shortness of breath with productive cough History of present illness: 83-year-old female with past medical history significant for current smoker patient has been never evaluated for COPD comes with that 1 week shortness of breath cough and sputum production with some fever or chills or other constitutional symptoms CT chest showed evidence of COPD with emphysema and bilateral apical consolidation with some cavitation. Patient denies any travel history outside the country denies any exposure to tuberculosis in the past. Apart from this acute symptoms she never had any chronic weight loss denies any hemoptysis denies any evening rise of temperature denies any loss of weight or appetite. Patient denies any chest pain chest tightness denies any palpitation or syncope patient denies any active abdominal symptoms patient denies any focal neurological deficit pulmonary was consulted for evaluation of cavitating pneumonia. Past Med Surg Social Fam HX - Past Medical History Medical history: COPD, hypertension, other Additional medical history: vertigo Psychiatric history: no psych history - Past Surgical History Surgical History: appendectomy - Social History Smoking Status: Former smoker Smokeless Tobacco Status: No Alcohol use: none Drug use: none - Family History Father Family Member Ethnicity: Non- Living Status: Mother Family Member Ethnicity: Non- Living Status: Brother Adopted: No Family Member Ethnicity: Non- Living Status: Hx Family Endocrine Disorder: Yes (DM) Sister Family Member Ethnicity: Non- Living Status: Hx Family Cardiac Disorders: Yes (CAD) Hx Family Cancer: Yes (Breast) Hx Family Endocrine Disorder: Yes (DM) Medications and Allergies Cholecalciferol (D-3) [Vitamin D] 5,000 unit PO DAILY 08/01/18 [History] Fluticasone/Umeclidin/Vilanter [Trelegy Ellipta 100-62.5-25] 1 puff PO DAILY 09/04/18 [History] Allergy/AdvReac Type Severity Reaction Status Date / Time No Known Allergies Allergy Verified 09/04/18 12:59 All Systems: The remainder of the systems were reviewed and are negative Physical Examination Vital Signs: Vital Signs, Last 4 Hours Temp Pulse Resp BP Pulse Ox 09/04/18 11:20 16 99 09/04/18 11:13 97.9 F 97 14 145/53 94 General appearance: no acute distress Effort: normal Auscultation: bilateral: clear Cardiovascular: regular rate and rhythm Gastrointestinal: normoactive bowel sounds Extremities: no cyanosis Musculoskeletal: no deformities normal mental status, non-focal exam mood appropriate Results - Laboratory Findings CBC and BMP: 09/04/18 05:27 09/04/18 05:27 Abnormal lab findings: Abnormal lab results MCHC 30.7 g/dL (31.6-35.5) L 09/04/18 05:27 RDW 14.7 % (11.5-14.5) H 09/04/18 05:27 MPV 12.6 fL (9.4-12.4) H 09/04/18 05:27 1.36 mg/dL (0.60-1.20) H 09/04/18 05:27 Est GFR ( Amer) 45 (> 60) L 09/04/18 05:27 Est GFR (Non-Af Amer) 37 (> 60) L 09/04/18 05:27 Glucose 194 mg/dL (70-105) H 09/04/18 05:27 POC Glucose 194 mg/dL (70-99) H 09/04/18 02:07 305 (280-300) H 09/04/18 05:27 - Microbiology Findings Microbiology Findings: Microbiology, Last 48 Hours 09/03/18 22:10 Legionella Antigen - Final Urine,Clean Catch Streptococcus pneumoniae Antigen (M - Final - Clinical Findings Intake & Output: Intake & Output 09/03/18 09/04/18 09/04/18 23:59 07:59 15:59 Intake Total 500 / 500 340 / 340 Balance 500 / 500 340 / 340 Weight 57.8 kg Consult Discharge Plan - Plan Referrals: Juan R Kaminski MD [Primary Care Provider] -
[2018-09-04] MEDS: 0.9 % Sodium Chloride 1,000 ML IVC SCH (14:44)
[2018-09-04] MEDS: Piperacillin/Tazobactam 3.375 GM in 0.9 % Sodium Chloride Mini Bag 100 ML IVPB SCH ×2 (14:58→23:59)
[2018-09-04] MEDS ORDERED: Aminoglycoside Consult 1 EACH MC ONE (17:14)
[2018-09-05] MEDS: Ipratropium/Albuterol Neb 3 ML IH SCH ×5 (00:05→16:04)
[2018-09-05] MEDS: 0.9 % Sodium Chloride 1,000 ML IVC SCH (04:06)
[2018-09-05] MEDS: Doxycycline 100 MG in 0.9 % Sodium Chloride Mini Bag 100 ML IVPB SCH (05:22)
[2018-09-05] MEDS: *HR* Heparin 5,000 UNIT/ML VIAL SQ SCH ×2 (05:23→14:13)
[2018-09-05 05:33] LABS: Calcium 8.5 mg/dL (8.6-10.3); Potassium 4.4 mEq/L (3.5-5.1)
[2018-09-05] MEDS: Piperacillin/Tazobactam 3.375 GM in 0.9 % Sodium Chloride Mini Bag 100 ML IVPB SCH (07:42)
[2018-09-05] MEDS ORDERED: MethylPREDNISolone 40 MG/ML VIAL IVP SCH (09:07)
--- NOTE | 2018-09-05 09:09 | Internal Med Progress Note ---
Hospitalist Progress Note - Encounter Date of Encounter: 09/05/18 Time of Encounter: 09:09 - Exam Vitals: Temp Pulse Resp BP Pulse Ox 98.2 F 100 17 164/73 97 09/05/18 06:46 09/05/18 06:46 09/05/18 07:18 09/05/18 06:46 09/05/18 07:50 - Assessment and Plan (1) COPD (chronic obstructive pulmonary disease) Current Visit: No Status: Acute (2) DVT prophylaxis Current Visit: No Status: Acute (3) Former smoker Current Visit: Yes Status: Acute (4) Prolonged QT interval Current Visit: Yes Status: Acute (5) HCAP (healthcare-associated pneumonia) Current Visit: Yes Status: Acute (6) Cavitary lung disease Current Visit: Yes Status: Acute (7) Lung nodule Current Visit: Yes Status: Acute - Time Spent with Patient Total time spent is greater than 50% in coordination of care (as documented) at patient's floor/unit and/or counseling patient: Internal Medicine: Result - Labs CBC & Chem 7: 09/04/18 05:27 09/05/18 03:51 Labs: BMP 09/05/18 03:51 Sodium 143 Potassium 4.4 Chloride 108 H Carbon Dioxide 23 BUN 27 H Creatinine 1.32 H Glucose 138 H Calcium 8.5 L Consult Discharge Plan - Plan Referrals: Juan R Kaminski MD [Primary Care Provider] - 09/18/18 2:30 pm (1) COPD (chronic obstructive pulmonary disease) Qualifiers: Qualified Code(s): J44.9 - Chronic obstructive pulmonary disease, unspecified
[2018-09-05 10:52] VITALS: BP 112/73
--- NOTE | 2018-09-05 11:34 | Pulmonology Consult Note ---
Date of Encounter: 09/05/18 Time of Encounter: 08:00 Assessment and Plan (1) COPD exacerbation Current Visit: Yes Status: Acute (2) Cavitary lung disease Current Visit: Yes Status: Acute Past Med Surg Social Fam HX - Past Medical History Medical history: COPD, hypertension, other Additional medical history: vertigo Psychiatric history: no psych history - Past Surgical History Surgical History: appendectomy - Social History Smoking Status: Former smoker Smokeless Tobacco Status: No Alcohol use: none Drug use: none - Family History Father Family Member Ethnicity: Non- Living Status: Mother Family Member Ethnicity: Non- Living Status: Brother Adopted: No Family Member Ethnicity: Non- Living Status: Hx Family Endocrine Disorder: Yes (DM) Sister Family Member Ethnicity: Non- Living Status: Hx Family Cardiac Disorders: Yes (CAD) Hx Family Cancer: Yes (Breast) Hx Family Endocrine Disorder: Yes (DM) Medications and Allergies Cholecalciferol (D-3) [Vitamin D] 5,000 unit PO DAILY 08/01/18 [History] Fluticasone/Umeclidin/Vilanter [Trelegy Ellipta 100-62.5-25] 1 puff PO DAILY 09/04/18 [History] Allergy/AdvReac Type Severity Reaction Status Date / Time No Known Allergies Allergy Verified 09/04/18 12:59 All Systems: The remainder of the systems were reviewed and are negative Physical Examination Vital Signs: Vital Signs, Last 4 Hours Temp Pulse Resp BP Pulse Ox 09/05/18 10:52 97.8 F 95 18 112/73 96 09/05/18 07:50 97 Results - Laboratory Findings CBC and BMP: 09/04/18 05:27 09/05/18 03:51 Abnormal lab findings: Abnormal lab results MCHC 30.7 g/dL (31.6-35.5) L 09/04/18 05:27 RDW 14.7 % (11.5-14.5) H 09/04/18 05:27 MPV 12.6 fL (9.4-12.4) H 09/04/18 05:27 Chloride 108 mEq/L (98-107) H 09/05/18 03:51 BUN 27 mg/dL (8-23) H 09/05/18 03:51 1.32 mg/dL (0.60-1.20) H 09/05/18 03:51 Est GFR ( Amer) 47 (> 60) L 09/05/18 03:51 Est GFR (Non-Af Amer) 38 (> 60) L 09/05/18 03:51 Glucose 138 mg/dL (70-105) H 09/05/18 03:51 POC Glucose 194 mg/dL (70-99) H 09/04/18 02:07 303 (280-300) H 09/05/18 03:51 Calcium 8.5 mg/dL (8.6-10.3) L 09/05/18 03:51 - Microbiology Findings Microbiology Findings: Microbiology, Last 48 Hours 09/03/18 15:31 Blood Culture - Preliminary Peripheral Venipuncture Culture is incubating and being continuously monitored for growth. Final report to follow. 09/03/18 15:31 Blood Culture - Preliminary Peripheral Venipuncture Culture is incubating and being continuously monitored for growth. Final report to follow. 09/04/18 20:50 Sputum Culture - Preliminary Sputum 09/03/18 22:10 Legionella Antigen - Final Urine,Clean Catch Streptococcus pneumoniae Antigen (M - Final - Clinical Findings Intake & Output: Intake & Output 09/04/18 09/05/18 09/05/18 23:59 07:59 15:59 Intake Total 450 / 790 1200 / 1440 240 / 1440 Balance 450 / 790 1200 / 1440 240 / 1440 Weight 58.8 kg Consult Discharge Plan - Plan Referrals: Juan R Kaminski MD [Primary Care Provider] - 09/18/18 2:30 pm
--- NOTE | 2018-09-05 14:09 | Discharge Summary ---
- NOTES TO OUTPATIENT PROVIDER Notes to Outpatient Provider: Patient would need to follow-up with pulmonology within 2-3 weeks. Discharge with steroid taper to finish week taper and doxycycline to finish 7 day course. Patient would need a repeat CT scan after 6 weeks Orders not resulted at time of discharge: Pending orders 09/03/18 15:31 Culture,Blood [BC] Stat 09/03/18 16:32 Culture,Sputum with Gram Stain [RM] Stat Date of Encounter: 09/05/18 Time of Encounter: 12:07 - Discharge Diagnosis (1) COPD (chronic obstructive pulmonary disease) Priority: Secondary Status: Acute Qualifiers: COPD type: unspecified COPD Qualified Code(s): J44.9 - Chronic obstructive pulmonary disease, unspecified (2) DVT prophylaxis Priority: Secondary Status: Acute (3) Former smoker Priority: Secondary Status: Acute (4) Prolonged QT interval Priority: Secondary Status: Acute (5) HCAP (healthcare-associated pneumonia) Priority: Primary Status: Acute (6) Cavitary lung disease Priority: Primary Status: Acute (7) Lung nodule Priority: Secondary Status: Acute Hospital course: Ms. Stahl is a 83 year old female with past medical history of hypertension and COPD EKG came with productive cough. Patient recently discharged in July after while infection with coronavirus for COPD exacerbation. Patient came in again with complaint of fevers and chills and was recently started on treatment for pneumonia with clindamycin without significant improvement. Patient recently had CT scan done on 09/01 which showed bilateral upper lobe focal disease with central cavitation to suggest necrosis which was not present on previous x-ray on 08/01. Patient was started on broad-spectrum antibiotic. With thes with vancomycin and Zosyn and doxycycline. MRSA swab urinary antigen blood culture and sputum culture remain negative. Pulmonology was consulted. Pro-calcitonin levels were negative. Antibiotics would be escalated to doxycycline. Pulmonology patient possibly has bacterial pneumonia with exacerbation of COPD. Patient scheduled to treat lesion most likely secondary to bacterial pneumonia. Patient otherwise doing well to be discharged to follow-up with outpatient pulmonology within 2-3 weeks and get a repeat CT in about 6 weeks. Patient will be discharged on steroid taper and doxycycline to finish 7 day course. Discharge discussed with: patient, nurse, social work, outside solar sales consultant - Time Spent with Patient Total time spent providing and/or coordinating discharge services: Time spent: Greater than 30 minutes (40) - Discharge Medications Prescriptions: New Doxycycline 100 mg PO BID 4 Days #8 capsule predniSONE [PredniSONE] See Taper PO DAILY 12 Days #30 tablet Continued Cholecalciferol (D-3) [Vitamin D] 5,000 unit PO DAILY Fluticasone/Umeclidin/Vilanter [Trelegy Ellipta 100-62.5-25] 1 puff PO DAILY Home Medications: Cholecalciferol (D-3) [Vitamin D] 5,000 unit PO DAILY 08/01/18 [History] Fluticasone/Umeclidin/Vilanter [Trelegy Ellipta 100-62.5-25] 1 puff PO DAILY 09/04/18 [History] Doxycycline 100 mg PO BID 4 Days #8 capsule 09/05/18 [Rx] predniSONE [PredniSONE] See Taper PO DAILY 12 Days #30 tablet 09/05/18 [Rx] Allergies/Adverse Reactions: Allergy/AdvReac Type Severity Reaction Status Date / Time No Known Allergies Allergy Verified 09/04/18 12:59 Date of admission: 09/03/18 17:22 Primary care physician: Juan R Kaminski MD Consults: 09/03/18 17:21 Consult to Pulmonology [CONS] Routine Consulting Provider: [facility] Reason for Consult: bilateral upper lobe cavitary lesions with necrosis - acute ? secondary to PNA rule out malignancy Call Completed: No 09/04/18 09:26 Consult to Nurse Navigator [CONS] Routine Comment: PNEUMONIA 09/04/18 12:18 Consult to Pulmonology [CONS] Routine Consulting Provider: [facility] [place] Reason for Consult: cavitory lesion Call Completed: Yes Discharging clinician: Ronnie Rodriguez - Constitutional Vitals: Temp Pulse Resp BP Pulse Ox 97.8 F 95 18 112/73 97 09/05/18 10:52 09/05/18 10:52 09/05/18 11:42 09/05/18 10:52 09/05/18 11:42 Exam: General: In no acute distress. thin build Respiratory exam: no accessory muscle use. CTAB Cardiovascular exam: RRR, +S1, +S2. no murmur, gallop, rubs. GI/Abdominal exam: Non-tender, Non-distended, soft, no peritoneal signs. Extremities exam: no pedal edema, no calf tenderness Neurological exam: CN II-XII intact, AO X3, no focal deficits. Skin exam: No skin rash - Patient Status Disposition: Home, Self-Care Condition: Fair - Discharge Instructions Follow Up With: Juan R Kaminski MD [Primary Care Provider] - 09/18/18 2:30 pm - Diet and Activity Activity: increase activity as tolerated
[2018-09-05] MEDS ORDERED: Budesonide/Formoterol 160/4.5 1 PUFF INH IH SCH (22:00)
== END 2018-09-05 17:15 | disposition home or self-care (01) ==
LOC: EMEROOARM 14:02 → 3BNU 14:02 → SUATTDRO 17:22 → 3BNU 18:45
PROVIDERS: ADMIT Internal Medicine Nephrology; ATTEND Internal Medicine

== ENCOUNTER 2018-12-18 15:49 | Observation (INO) ==
[2018-12-18] MEDS ORDERED: *HR* Labetalol 20 MG/4 ML SYRINGE IVP ONE (16:06)
--- NOTE | 2018-12-18 16:35 | Emergency Department Note ---
Disposition Clinical Impression: Hypertensive urgency, Dizziness Headache Qualifiers: Headache type: unspecified Headache chronicity pattern: acute headache Intractability: not intractable Qualified Code(s): R51 - Headache Disposition: Admitted As Inpatient Condition: Good Time of Disposition: 17:56 General Adult HPI - General Chief complaint: ED Syncope Stated complaint: hypertension Time Seen by Provider: 12/18/18 15:54 Source: EMS Limitations: no limitations - History of Present Illness Pain Scale: 5 - Related Data Home Medications Medication Instructions Recorded Confirmed Albuterol Sulfate [Ventolin Hfa] 2 puff IH Q4H PRN 12/19/18 12/19/18 Cholecalciferol (D-3) [Vitamin D] 5,000 unit PO DAILY 12/19/18 12/19/18 Fluticasone/Umeclidin/Vilanter 1 puff IH DAILY 12/19/18 12/19/18 [Trelegy Ellipta 100-62.5-25] Previous Rx's Medication Instructions Recorded Losartan [Cozaar] 100 mg PO DAILY #30 tablet 12/20/18 Ondansetron ODT [Zofran ODT] 4 mg SL Q8HR PRN #20 tab.rapdis 12/20/18 Allergies Allergy/AdvReac Type Severity Reaction Status Date / Time No Known Allergies Allergy Verified 09/04/18 12:59 Past Medical History - Past Medical History Medical history: Reports: COPD, other Surgical history: Reports: appendectomy Psychiatric history: Reports: no psych history - Social History Smoking Status: Former smoker Smokeless Tobacco Status: No Alcohol use: Reports: occasionally Drug use: Reports: none Physical Exam - General Limitations: no limitations General appearance: alert Course Vital Signs Temperature 97.7 F 12/18/18 15:57 Pulse Rate 82 12/18/18 15:57 Respiratory Rate 18 12/18/18 15:57 Blood Pressure 238/91 12/18/18 15:57 O2 Sat by Pulse Oximetry 95 12/18/18 15:57 Temperature 97.6 F 12/20/18 07:39 Pulse Rate 71 12/20/18 07:39 Respiratory Rate 16 12/20/18 07:39 Blood Pressure 145/83 12/20/18 04:15 O2 Sat by Pulse Oximetry 97 12/20/18 07:39 Oxygen Delivery Oxygen Delivery Room Air Medical Decision Making - Lab Data Result diagrams: 12/19/18 00:59 12/19/18 00:59 Lab Results 12/18/18 Range/Units 16:33 Sodium 142 (136-145) mEq/L Potassium 4.1 (3.5-5.1) mEq/L Chloride 105 (98-107) mEq/L Carbon Dioxide 27 (23-29) mEq/L BUN 25 H (8-23) mg/dL Creatinine 1.20 (0.60-1.20) mg/dL Est GFR ( Amer) 52 L (> 60) Est GFR (Non-Af Amer) 43 L (> 60) BUN/Creatinine Ratio 21 (6-26) Glucose 113 H (70-105) mg/dL Calculated Osmolality 299 (280-300) Calcium 9.9 (8.6-10.3) mg/dL Troponin I 0.05 H* (< 0.04) ng/mL Attestation Statement - Attestation Attestation: I examined this patient and my medical decision-making was reviewed with the Resident Physician. I agree with the documented findings, disposition and treat ment plan as described except to the extent set forth below. Patient presents with headache, no other neurologic symptoms. No confusion, vomiting, visual changes, peripheral numbness or weakness, seizure activity. Her headache is not particularly severe, was not sudden in onset, there are no other red flags for subarachnoid hemorrhage. Denies chest pain, shortness of breath, abdominal pain, change in urination or other complaints. She is concerned about her elevated blood pressure. She has poorly controlled hypertension without evidence of acute end organ damage. No further treatment for her blood pressure will be given in the emergency department. We will manage her headache, rule out complications. Anticipate discharge.
[2018-12-18] MEDS ORDERED: Prochlorperazine 10 MG/2 ML VIAL IVP STA (16:38)
[2018-12-18 17:08] LABS: Calcium 9.9 mg/dL (8.6-10.3); Potassium 4.1 mEq/L (3.5-5.1)
--- NOTE | 2018-12-18 17:26 | Emergency Department Note ---
Disposition Clinical Impression: Hypertensive urgency, Dizziness Headache Qualifiers: Headache type: unspecified Headache chronicity pattern: acute headache Intractability: not intractable Qualified Code(s): R51 - Headache Disposition: Admitted As Inpatient Forms: ED Satisfaction Letter Time of Disposition: 17:56 General Adult HPI - General Chief complaint: ED Syncope Stated complaint: hypertension Time Seen by Provider: 12/18/18 15:54 Source: family, EMS Mode of arrival: EMS Limitations: no limitations Nursing Notes Reviewed: Yes Vital Signs Reviewed: Yes - History of Present Illness HPI Narrative: 83F with past medical history of COPD presents to the emergency department with dizziness and headache that she thinks is related to her high blood pressure. Pain Scale: 5 - Related Data Home Medications Medication Instructions Recorded Confirmed No Known Home Drugs 12/15/18 12/15/18 Allergies Allergy/AdvReac Type Severity Reaction Status Date / Time No Known Allergies Allergy Verified 09/04/18 12:59 All systems ED: reviewed and negative except as stated. Review of Systems: As Per HPI Constitutional: Reports: weakness. Denies: fever, chills Cardiovascular: Denies: chest pain, palpitations, dyspnea on exertion Respiratory: Denies: cough, dyspnea, wheezes Gastrointestinal: Reports: nausea, vomiting. Denies: abdominal pain Musculoskeletal: Denies: back pain, neck pain Integumentary: Denies: rash Neurological: Reports: headache, vertigo. Denies: weakness, numbness, paresthesias, confusion Endocrine: Denies: fatigue Past Medical History - Past Medical History Attestation: Yes The following information was validated with the patient. Source: patient Medical history: Reports: COPD, other Surgical history: Reports: appendectomy Psychiatric history: Reports: no psych history - Social History Smoking Status: Former smoker Smokeless Tobacco Status: No Alcohol use: Reports: occasionally Drug use: Reports: none Physical Exam - General Limitations: no limitations General appearance: alert, in distress (moderate distress with dry heaving) - Head Head exam: atraumatic, normocephalic - Eye Eye exam: Present: normal appearance, PERRL, EOMI - Chest Chest inspection: Present: normal inspection. Absent: tenderness, rash - Respiratory Respiratory exam: Present: normal lung sounds bilaterally. Absent: wheezes - Cardiovascular Cardiovascular exam: Present: regular rate, normal rhythm - Abdominal Exam Abdominal exam: Present: soft, Non-Tender. Absent: distention, guarding, rebound, rigidity - Extremities Exam Extremities exam: Present: normal inspection. Absent: tenderness, pedal edema - Neurological Exam Neurological exam: Present: alert, oriented X3. Absent: motor sensory deficit - Psychiatric Psychiatric exam: Present: normal affect, normal mood - Skin Skin exam: Present: warm, dry, intact Course Vital Signs Temperature 97.7 F 12/18/18 15:57 Pulse Rate 82 12/18/18 15:57 Respiratory Rate 18 12/18/18 15:57 Blood Pressure 238/91 12/18/18 15:57 O2 Sat by Pulse Oximetry 95 12/18/18 15:57 Temperature 97.7 F 12/18/18 15:57 Pulse Rate 79 12/18/18 17:05 Respiratory Rate 16 12/18/18 17:05 Blood Pressure 190/85 12/18/18 17:05 O2 Sat by Pulse Oximetry 95 12/18/18 17:05 Oxygen Delivery Oxygen Delivery Room Air Medical Decision Making - MDM Narrative Medical decision making narrative: Patient presents with severe headache, nausea and dizziness as well as significantly elevated blood pressure. We will obtain EKG, basic labs and a head CT and treat the patient's hypertension and nausea. 1730 - patient's lab work, EKG and head CT are unremarkable. Spoke with the patient's son he states that the patient has episodes like this several times a month and he is worried about the patient going home and she lives alone. He is afraid that she is so dizzy that she might fall and he does not know if he will be able to help her out if she does fall due to his own health problems. 1755 - pt is agreeable with admission for treatment of her HTN and to figure out what is causing her BP spikes and dizziness. Pt has been accepted by Dr. Raymundo for admission. - Medical Records Medical records reviewed: Yes I reviewed the patient's medical records. - Lab Data Lab results reviewed: Yes I reviewed the patient's lab results. Result diagrams: 12/18/18 16:33 Lab Results 12/18/18 Range/Units 16:33 Sodium 142 (136-145) mEq/L Potassium 4.1 (3.5-5.1) mEq/L Chloride 105 (98-107) mEq/L Carbon Dioxide 27 (23-29) mEq/L BUN 25 H (8-23) mg/dL Creatinine 1.20 (0.60-1.20) mg/dL Est GFR ( Amer) 52 L (> 60) Est GFR (Non-Af Amer) 43 L (> 60) BUN/Creatinine Ratio 21 (6-26) Glucose 113 H (70-105) mg/dL Calculated Osmolality 299 (280-300) Calcium 9.9 (8.6-10.3) mg/dL - Radiology Data Radiology results reviewed: Yes I reviewed the patient's radiology results. - EKG Data EKG #1 EKG attestation: Yes I reviewed and interpreted this EKG. EKG results narrative: EKG obtained at 1603 Heart 78 bpm, [place] interval 146, QRS duration 77, QT 398, QTC 454 Sinus rhythm without any acute ST segment elevations or depressions. Lead V1 does have some mild ST segment elevation which is unchanged from previous dated 12/15/2018. No other acute changes when compared to previous.
[2018-12-18] MEDS ORDERED: *HR* Promethazine 25 MG/ML VIAL IVP PRN (18:16)
[2018-12-18] MEDS ORDERED: Naloxone 0.4 MG/ML INJ IVP PRN (18:16)
[2018-12-18] MEDS ORDERED: Acetaminophen 325 MG TABLET PO PRN (18:16)
--- NOTE | 2018-12-18 18:28 | Internal Med History&Physical ---
Date of Encounter: 12/18/18 Time of Encounter: 18:16 Internal Medicine - H&P: HPI Chief complaint: Dizziness Admitted From: Home Plans for Post Hospital Care: Home History of present illness: Ms. Stahl is a 83 year old female with history of hypertension not currently treated presents with headache, lightheadedness, and vertigo symptoms with concerns for hypertensive emergency. Patient has been treated for hypertension in the past and stopped taking her blood pressure medications on the advice of her doctor 4 months ago because blood pressures were running 120s/70s. Since then, she has been intermittently hypertensive. Was seen in the ED 12/15/18 for asymptomatic hypertension that was noted when she was at physical therapy appointment. Was instructed to follow up with her primary care provider for blood pressure management. Today she noted that she was admitted and had vertigo type symptoms (although she denies that the room is spinning). [place] unsteady on her feet but denies falling. Took her blood pressure at home and it was in the 160's systolic so decided to come to the hospital. Initial systolic BP >200 but now 180's. All symptoms have resolved since blood pressures have come down. Denies experiencing unilateral weakness, numbness, or tingling. No facial changes. No chest pain. No abdominal pain. Past Med Surg Social Fam HX - Past Medical History Medical history: COPD, other Additional medical history: vertigo Psychiatric history: no psych history - Past Surgical History Surgical History: appendectomy - Social History Smoking Status: Former smoker Smokeless Tobacco Status: No Alcohol use: occasionally Drug use: none - Family History Father Family Member Ethnicity: Non- Living Status: Mother Family Member Ethnicity: Non- Living Status: Brother Adopted: No Family Member Ethnicity: Non- Living Status: Hx Family Endocrine Disorder: Yes (DM) Sister Family Member Ethnicity: Non- Living Status: Hx Family Cardiac Disorders: Yes (CAD) Hx Family Cancer: Yes (Breast) Hx Family Endocrine Disorder: Yes (DM) Internal Medicine - H&P: Meds No Known Home Drugs 12/15/18 [History] Allergy/AdvReac Type Severity Reaction Status Date / Time No Known Allergies Allergy Verified 09/04/18 12:59 All Systems PM: A 10-system review of systems was performed and is negative for pertinent findings except as documented above in the HPI. Review of systems: General: Fevers / Chills / Weight loss / Night sweats Eyes: Blurry Vision / Change in Vision HENT: Ear Pain / Ear Drainage / Rhinorrhea / Throat Pain / Lymphadenopathy Cardiovascular: Chest Pain / Palpatations / Orthopnea / LEHMAN / Weight gain / Lightheadedness / Dizziness Lungs: Dyspnea / Wheezing / Cough / Sputum production / Pleurisy Abdomen: Abdomen pain / Abdominal distention / Nausea / Vomiting / Diarrhea / Const : Dysuria / Urinary Frequency / Urinary Urgency / Hematuria Extremities: LE edema / Ext pain / Ext erythema Skin: Rashes / Abrasions / Contusions Psych: Hallucinations / Anxiety / Depression Neuro: Weakness / Numbness / Tingling / Facial Droop / Dysphagia / Vertigo - Constitutional Vitals: Temp Pulse Resp BP Pulse Ox 97.7 F 79 16 190/85 95 12/18/18 15:57 12/18/18 17:05 12/18/18 17:05 12/18/18 17:05 12/18/18 17:05 Exam: General: Ill-appearing and in no acute distress HEENT: No erythema of posterior pharynx. No exudates. Lymphatics: No mandibular or cervical lymphadenopathy Cardiovascular: RRR. No murmurs. No chest wall tenderness. Lungs: Clear to auscelltation bilaterally. Regular chest rise. Abdomen: Non-tender. No rebound or gaurding. Nl bowel sounds. Extremities: No edema. 2+ pulses radial and pedal pulses Skin: No rahses, abrasions, or contusions. Nl cap refill. Psych: Nl attention. A&Ox3 Neuro: intercell connector placer II-XII intact. 5/5 strength. Sensation to light touch and pinprick intact. FNF and ROM intact. No PD. Internal Med - H&P Results - Labs CBC & Chem 7: 12/18/18 16:33 Labs: BMP 12/18/18 16:33 Sodium 142 Potassium 4.1 Chloride 105 Carbon Dioxide 27 BUN 25 H Creatinine 1.20 Glucose 113 H Calcium 9.9 - Impressions ITS Impressions Chest X-Ray 12/18/18 16:05 IMPRESSION: Stable chest. No new acute process. D/ / Eliel Miguel MD / Eliel Miguel MD Interpreting Provider: Eliel Miguel MD Head CT 12/18/18 16:40 IMPRESSION: No acute intracranial abnormality. D/ / Eliel Miguel MD / Eliel Miguel MD Interpreting Provider: Eliel Miguel MD - Assessment and Plan (1) Hypertensive emergency Current Visit: Yes Status: Acute Assessment and plan: Patient with history of hypertension not currently treated presents with headache, lightheadedness, and vertigo in the setting of initial systolic BP >200 with resolution of neurological symptoms since blood pressures have come down. -Presumed diagnosis of hypertensive emergency given resolution of symptoms after BP control -Neuro exam now normal -Likely primary untreated essential HTN resulting in hypertensive emergency event No evidence of ischemic event driving elevated BP (CT without infarct, no abdominal pain to suggest intestinal ischemia, no EKG changes, will obtain trop) PLAN: - Start Losartan 25mg qd - Labetolol 10mg IV q6 for SBP >180 - PT eval to ensure steady on feet - If patient's symptoms return will initiate stroke protocol and obtain MRI tomorrow (2) CKD (chronic kidney disease) stage 3, GFR 30-59 ml/min Current Visit: No Status: Chronic Assessment and plan: Currently at baseline with creatinine of 1.2 (3) HTN (hypertension) Current Visit: No Status: Chronic Assessment and plan: Patient has been treated for hypertension in the past and stopped taking her blood pressure medications on the advice of her doctor 4 months ago because blood pressures were running 120s/70s. Since then, she has been intermittently hypertensive. Was seen in the ED 12/15/18 for asymptomatic hypertension that was noted when she was at physical therapy appointment. Was instructed to follow up with her primary care provider for blood pressure management. - Start Losartan 25mg qd Qualifiers: Hypertension type: unspecified Qualified Code(s): I10 - Essential (primary) hypertension
[2018-12-18] MEDS ORDERED: *HR* Labetalol 20 MG/4 ML SYRINGE IVP PRN (18:39)
[2018-12-18 19:08] LABS: Troponin I 0.05 ng/mL (< 0.04)
[2018-12-19 01:39] LABS: Basophils % 0.5 %; Eosinophils % 0.7 %; Hematocrit 47.4 % (35.3-44.9); Hemoglobin 15.2 g/dL (11.5-15.4); Immature Granulocytes % 0.2 % (0-4); Lymphocytes # 1.6 K/mcL (0.6-4.6); Lymphocytes % 26.4 %; Mean Corpuscular HGB Conc 32.1 g/dL (31.6-35.5); Mean Corpuscular Hemoglobin 29.3 pg (28.0-33.3); Mean Corpuscular Volume 91.3 fL (83.0-100.0); Mean Platelet Volume 12.5 fL (9.4-12.4); Monocytes # 0.4 K/mcL (0.0-1.3); Platelet Count 133 K/mcL (140-400); Red Blood Count 5.19 M/mcL (3.82-4.97); Red Cell Distribution Width 14.5 % (11.5-14.5); Segmented Neutrophils % 66.2 %
[2018-12-19 01:57] LABS: Calcium 9.5 mg/dL (8.6-10.3); Potassium 4.2 mEq/L (3.5-5.1)
[2018-12-19] MEDS: *HR* Heparin 5,000 UNIT/ML VIAL SQ SCH ×2 (05:06→17:16)
[2018-12-19] MEDS: Ondansetron ODT 4 MG TAB.RAPDIS SL PRN (07:38)
--- NOTE | 2018-12-19 13:53 | Electrocardiograph Report ---
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
--- NOTE | 2018-12-19 17:22 | Internal Med Progress Note ---
Hospitalist Progress Note - Encounter Date of Encounter: 12/19/18 Time of Encounter: 17:13 - Subjective Interval History: Apparently phone is misplaced and patient is very upset about this. Believes that it was lost by hospital staff. Trying to locate this. Says she is still intermittently having dizziness spells but less severe than when she came in. - Exam Vitals: Temp Pulse Resp BP Pulse Ox 97.9 F 72 18 148/94 88 12/19/18 11:48 12/19/18 15:36 12/19/18 11:48 12/19/18 15:36 12/19/18 15:36 Exam: General: Ill-appearing and in no acute distress HEENT: No erythema of posterior pharynx. No exudates. Lymphatics: No mandibular or cervical lymphadenopathy Cardiovascular: RRR. No murmurs. No chest wall tenderness. Lungs: Clear to auscelltation bilaterally. Regular chest rise. Abdomen: Non-tender. No rebound or gaurding. Nl bowel sounds. Extremities: No edema. 2+ pulses radial and pedal pulses Skin: No rahses, abrasions, or contusions. Nl cap refill. Psych: Nl attention. A&Ox3 Neuro: executive search consultant II-XII intact. 5/5 strength. Sensation to light touch and pinprick intact. FNF and ROM intact. No PD. - Assessment and Plan (1) Hypertensive emergency Current Visit: Yes Status: Acute Assessment and Plan: Patient with history of hypertension not currently treated presents with headache, lightheadedness, and vertigo in the setting of initial systolic BP >200 with resolution of neurological symptoms since blood pressures have come down. -Presumed diagnosis of hypertensive emergency given resolution of symptoms after BP control, however, patient now saying that she is actually had the symptoms for 2 years just worse as of recently Has followed with ENT over the past 2 years for this. Cause has been elusive and patient was supposed to undergo tilt table testing as an outpatient Discussed case with ENT. Probably no further workup to do inpatient - tilt table testing can only be done as an outpatient Symptoms may not be related to blood pressure at all and severe hypertension may have been an innocent bystander during event ENT suggests that symptoms may be related to autonomic dysfunction and recommend obtaining orthostatic blood pressures PLAN: - Losartan 100mg qd - Orthostatic blood pressures - Labetolol 10mg IV q6 for SBP >180 - Tilt table testing as an outpatient with ENT follow-up (2) Dizziness Current Visit: Yes Status: Acute Assessment and Plan: See discussion and plan per above (3) CKD (chronic kidney disease) stage 3, GFR 30-59 ml/min Current Visit: No Status: Chronic Assessment and Plan: Currently at baseline with creatinine of 1.2 (4) HTN (hypertension) Current Visit: No Status: Chronic Assessment and Plan: Patient has been treated for hypertension in the past and stopped taking her blood pressure medications on the advice of her doctor 4 months ago because blood pressures were running 120s/70s. Since then, she has been intermittently hypertensive. Was seen in the ED 12/15/18 for asymptomatic hypertension that was noted when she was at physical therapy appointment. Was instructed to follow up with her primary care provider for blood pressure management. - Start Losartan 25mg qd DVT Prophylaxis: heparin Internal Medicine: Result - Labs CBC & Chem 7: 12/19/18 00:59 12/19/18 00:59 Labs: Short CBC 12/19/18 Range/Units 00:59 WBC 6.0 (4.3-11.1) K/mcL Hgb 15.2 (11.5-15.4) g/dL Hct 47.4 H (35.3-44.9) % Plt Count 133 L (140-400) K/mcL Neutrophils # 4.0 (1.6-8.9) K/mcL BMP 12/19/18 00:59 Sodium 141 Potassium 4.2 Chloride 107 Carbon Dioxide 25 BUN 25 H Creatinine 1.12 Glucose 108 H Calcium 9.5 Cardiac Enzymes 12/18/18 12/19/18 Range/Units 16:33 13:44 Troponin I 0.05 H* 0.04 H* (< 0.04) ng/mL - Impressions Impressions Chest X-Ray 12/18/18 16:05 IMPRESSION: Stable chest. No new acute process. D/ / Eliel Miguel MD / Eliel Miguel MD Interpreting Provider: Eliel Miguel MD Head CT 12/18/18 16:40 IMPRESSION: No acute intracranial abnormality. D/ / Eliel Miguel MD / Eliel Miguel MD Interpreting Provider: Eliel Miguel MD Consult Discharge Plan - Plan Instructions: Acute Respiratory Distress Syndrome (DC), Chronic Obstructive Pulmonary Disease (DC), Chronic Hypertension (DC), Hypertensive Crisis (DC), P[place] (DC) Referrals: Colin Kaminski [Primary Care Provider] - (4) HTN (hypertension) Qualifiers: Hypertension type: unspecified Qualified Code(s): I10 - Essential (primary) hypertension
[2018-12-20 04:16] VITALS: BP 145/83
[2018-12-20] MEDS: *HR* Heparin 5,000 UNIT/ML VIAL SQ SCH (04:58)
[2018-12-20] MEDS: Ondansetron ODT 4 MG TAB.RAPDIS SL PRN (09:13)
--- NOTE | 2018-12-20 10:44 | Electrocardiograph Report ---
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
--- NOTE | 2018-12-20 12:12 | Discharge Summary ---
- NOTES TO OUTPATIENT PROVIDER Notes to Outpatient Provider: Patient was admitted for hypertensive emergency and she was started on losartan with improvement in her blood pressure however she may need another medication. I asked her to document her blood pressure before she visits her primary care doctor. She also had dislodged rubber band from her hearing and in her left ear, she will see ENT today after discharge. Date of Encounter: 12/20/18 Time of Encounter: 10:00 - Discharge Diagnosis (1) Hypertensive emergency Priority: Primary Status: Resolved (2) CKD (chronic kidney disease) stage 3, GFR 30-59 ml/min Priority: Secondary Status: Chronic (3) HTN (hypertension) Priority: Secondary Status: Chronic Qualifiers: Hypertension type: essential hypertension Qualified Code(s): I10 - Essential (primary) hypertension (4) Dizziness Priority: Secondary Status: Resolved Hospital course: Ms. Stahl is a 83 year old female with history of hypertension who came into the hospital due to dizziness and vertigo. She was treated for hypertensive emergency and then she was placed on losartan with improvement in her blood pressure. She had mild troponin elevation which is type II event and lateral for elevated blood pressure. Before discharge, she had a rubber band left in her left ear which happened few days before admission. Consult was placed for ENT who recommended to see the patient in the clinic right after discharge. Appointment was arranged and patient will be discharged home in stable c ondition. She will follow with her PCP and ENT. Discharge discussed with: patient - Time Spent with Patient Total time spent providing and/or coordinating discharge services: 45 minutes - Discharge Medications Prescriptions: New Losartan [Cozaar] 100 mg PO DAILY #30 tablet Ondansetron ODT [Zofran ODT] 4 mg SL Q8HR PRN #20 tab.rapdis PRN Reason: Nausea And Vomiting Continued Cholecalciferol (D-3) [Vitamin D] 5,000 unit PO DAILY Fluticasone/Umeclidin/Vilanter [Trelegy Ellipta 100-62.5-25] 1 puff IH DAILY Albuterol Sulfate [Ventolin Hfa] 2 puff IH Q4H PRN PRN Reason: sob Home Medications: Albuterol Sulfate [Ventolin Hfa] 2 puff IH Q4H PRN 12/19/18 [History] Cholecalciferol (D-3) [Vitamin D] 5,000 unit PO DAILY 12/19/18 [History] Fluticasone/Umeclidin/Vilanter [Trelegy Ellipta 100-62.5-25] 1 puff IH DAILY 12/19/18 [History] Losartan [Cozaar] 100 mg PO DAILY #30 tablet 12/20/18 [Rx] Ondansetron ODT [Zofran ODT] 4 mg SL Q8HR PRN #20 tab.rapdis 12/20/18 [Rx] Allergies/Adverse Reactions: Allergy/AdvReac Type Severity Reaction Status Date / Time No Known Allergies Allergy Verified 09/04/18 12:59 Date of admission: 12/18/18 18:03 Primary care physician: Colin Kaminski Consults: 12/18/18 18:35 Consult to Physical Therapy [CONS] Routine Comment: Evaluate, develop and implement POC Reason for Consult: Deconditioning Does patient have active BEDREST order?: No Is patient medically & hemodynamically stable?: Yes Patient assessed for mobility or mobilized this visit?: No 12/20/18 09:42 Consult to ENT [CONS] Routine Consulting Provider: ENT Radha Reason for Consult: Dislodged hearing aid with a piece in the left ear Call Completed: Yes - Constitutional Vitals: Temp Pulse Resp BP Pulse Ox 97.6 F 71 16 145/83 97 12/20/18 07:39 12/20/18 07:39 12/20/18 07:39 12/20/18 04:15 12/20/18 07:39 Exam: General: Patient is alert, oriented 3. Head: Atraumatic, normal inspection, normocephalic. Eye: EOMI, PERRLA, no scleral icterus noted. ENT: Mucous membranes moist. Left ear canal is blocked with robber band. Neck: Normal inspection. Respiratory: No respiratory distress, rhonchi, or wheezes noted. Cardiovascular: Regular rate and regular rhythm, S1 and S2 audible. No murmurs, rubs, or gallops. GI: Soft, nondistended, normal bowel sounds. Extremities:No joint swelling, pedal edema, or tenderness noted. Neurological: Alert, oriented 3, no focal deficits. Psychiatric: normal affect, normal mood. Skin: Dry, intact, warm. Normal color. No rashes. - Patient Status Disposition: Home Health Service Condition: Good Functional capacity at discharge: independent ambulation Overall status at discharge: patient is back to baseline - Discharge Instructions Instructions: Acute Respiratory Distress Syndrome (DC), Chronic Obstructive Pulmonary Disease (DC), Chronic Hypertension (DC), Hypertensive Crisis (DC), Pneumonia (DC) Follow Up With: Félix Rocha DO [Partnered Physician] - 12/20/18 3:00 pm Colin Kaminski [Primary Care Provider] - - Diet and Activity Activity: as per physical therapy Diet: low salt diet
--- NOTE | 2018-12-20 12:16 | Physician Discharge Referral ---
Home Health/Hosp Referral Info Transfer to: Home Health Provider in Charge Post Discharge: PCP - Diagnosis (1) Hypertensive emergency Priority: Primary Status: Resolved (2) CKD (chronic kidney disease) stage 3, GFR 30-59 ml/min Priority: Secondary Status: Chronic (3) HTN (hypertension) Priority: Secondary Status: Chronic (4) Dizziness Priority: Secondary Status: Resolved - Respiratory Orders Smoking Cessation: Smoking cessation has been advised. For more information, call the [place] Tobacco Quit Line at 1-103-ONSE-NOW. - Diet/Nutrition Diet/Nutrition Orders: Regular, Cardiac - Activity Activity Orders: Up ad sonia - Services Needed Following services are medically necessary services: Nursing, Physical Therapy - Transfer Medications Prescriptions: Losartan [Cozaar] 100 mg PO DAILY #30 tablet Ondansetron ODT [Zofran ODT] 4 mg SL Q8HR PRN #20 tab.rapdis PRN Reason: Nausea And Vomiting Home Medications: Albuterol Sulfate [Ventolin Hfa] 2 puff IH Q4H PRN 12/19/18 [History] Cholecalciferol (D-3) [Vitamin D] 5,000 unit PO DAILY 12/19/18 [History] Fluticasone/Umeclidin/Vilanter [Trelegy Ellipta 100-62.5-25] 1 puff IH DAILY 12/19/18 [History] Losartan [Cozaar] 100 mg PO DAILY #30 tablet 12/20/18 [Rx] Ondansetron ODT [Zofran ODT] 4 mg SL Q8HR PRN #20 tab.rapdis 12/20/18 [Rx] Allergies/Adverse Reactions: Allergy/AdvReac Type Severity Reaction Status Date / Time No Known Allergies Allergy Verified 09/04/18 12:59 Certification: Further, I certify that my clinical findings support that this patient is homebound (i.e. absences from home require considerable and taxing effort and are for medical reasons or yarsanism services or infrequently or short duration when for other reasons) because: Homebound Reason: Patient requires assistance of a person or device to safely leave home Attestation: My signature below is to certify that this patient is under my care and that I, or nurse practitioner, or a physician's facilities maintenance assistant working with me, has a [id number] encounter with this patient.
== END 2018-12-20 14:13 | disposition home health service (06) ==
LOC: 2NENU 15:49 → EMEROOARM 15:49 → SUATTDRO 18:03 → 2NENU 18:50
PROVIDERS: ADMIT Internal Medicine; ATTEND Internal Medicine

== ENCOUNTER 2018-12-24 10:53 | Inpatient (IN) ==
[2018-12-24] MEDS ORDERED: Morphine Sulfate Immed Rel 15 MG TABLET PO STA (11:03)
--- NOTE | 2018-12-24 11:03 | Emergency Department Note ---
Disposition Clinical Impression: Intractable pain Left knee pain Qualifiers: Chronicity: acute Qualified Code(s): M25.562 - Pain in left knee Disposition: Admitted As Inpatient Condition: Good Time of Disposition: 15:28 General Adult HPI - General Stated complaint: Left knee pain Time Seen by Provider: 12/24/18 10:56 Nursing Notes Reviewed: Yes Vital Signs Reviewed: Yes - History of Present Illness HPI Narrative: Atrial female presents emergency department with concern for left knee pain. Patient states that she fell. On it. She denies any presyncope or syncope prior to the event. She states that the fall as mechanical. Patient states that it has been very difficult to walk on it. - Related Data Home Medications Medication Instructions Recorded Confirmed Albuterol Sulfate [Ventolin Hfa] 2 puff IH Q4H PRN 12/19/18 12/19/18 Cholecalciferol (D-3) [Vitamin D] 5,000 unit PO DAILY 12/19/18 12/24/18 Fluticasone/Umeclidin/Vilanter 1 puff IH DAILY 12/19/18 12/19/18 [Trelegy Ellipta 100-62.5-25] Previous Rx's Medication Instructions Recorded Losartan [Cozaar] 100 mg PO DAILY #30 tablet 12/20/18 Ondansetron ODT [Zofran ODT] 4 mg SL Q8HR PRN #20 tab.rapdis 12/20/18 Allergies Allergy/AdvReac Type Severity Reaction Status Date / Time No Known Allergies Allergy Verified 09/04/18 12:59 All systems ED: reviewed and negative except as stated. Review of Systems: As Per HPI Constitutional: Denies: fever Cardiovascular: Denies: chest pain Respiratory: Denies: cough, dyspnea Gastrointestinal: Denies: abdominal pain, nausea, vomiting Musculoskeletal: Reports: other (left knee pain) Neurological: Denies: numbness, paresthesias Past Medical History - Past Medical History Medical history: Reports: COPD, other Surgical history: Reports: appendectomy Psychiatric history: Reports: no psych history - Social History Smoking Status: Former smoker Smokeless Tobacco Status: No Alcohol use: Reports: occasionally Drug use: Reports: none Physical Exam - General Limitations: no limitations, other (Appears uncomfortable) - Head Head exam: normocephalic - Eye Eye exam: Present: EOMI - ENT ENT exam: mucous membranes moist - Neck Neck exam: Present: trachea midline - Chest Chest inspection: Present: symmetric chest wall rise - Respiratory Respiratory exam: Present: normal lung sounds bilaterally. Absent: respiratory distress, accessory muscle use - Cardiovascular Cardiovascular exam: Present: regular rate, normal rhythm, normal heart sounds - Abdominal Exam Abdominal exam: Present: soft, Non-Tender. Absent: distention, guarding, rebound, rigidity - Extremities Exam Extremities exam: Present: normal capillary refill (She does have palpable pulses in the dorsalis pedis, capillary refill is slightly delayed when comparison to the right ear temperature is about the same in the left than the right foot. She is able to wiggle her toes.), other - Back Exam Back exam: Present: full ROM - Neurological Exam Neurological exam: Present: alert, oriented X3 - Psychiatric Psychiatric exam: Present: normal affect, normal mood - Skin Skin exam: Present: warm, dry, intact, normal color. Absent: rash Course Vital Signs Temperature 98.8 F 12/24/18 11:03 Pulse Rate 71 12/24/18 11:03 Respiratory Rate 16 12/24/18 11:03 Blood Pressure 210/79 12/24/18 11:03 O2 Sat by Pulse Oximetry 96 12/24/18 11:03 Temperature 98.8 F 12/24/18 11:03 Pulse Rate 74 12/24/18 16:31 Respiratory Rate 16 12/24/18 16:31 Blood Pressure 177/82 12/24/18 16:31 O2 Sat by Pulse Oximetry 98 12/24/18 16:31 Oxygen Delivery Oxygen Delivery Nasal Cannula Medical Decision Making - [facility] Narrative Medical decision making narrative: 52-year-old female presents emergency department concern for left knee pain. Plain films are negative. Patient was given pain control and once her pain was under control, we attempted to have her ambulate in the emergency department. Patient was unable to ambulate withoutsome significant discomfort. Patient was given more pain medication. We did obtain ankle brachial index on a concern for pain that was out of proportion with soft compartments in the setting of no fracture. Patient declined these. Do not suspect acute arterial occlusion at this time. Patient admitted to the hospitalist hemodynamically stable still requiring pain medications. Femur X-Ray 12/24/18 11:00 IMPRESSION: Diffuse osteopenia. No acute fracture or dislocation of the left femur. Moderate degenerative changes in left hip. No acute fracture or dislocation of the left knee. Moderate tricompartmental degenerative changes. Mild suprapatellar joint effusion. No acute fracture or dislocation of the left tibia fibula. No acute fracture or dislocation of the pelvis. Moderate degenerative changes. RECOMMENDATION: 2 D/ / Richard Lizarraga MD / Richard Lizarraga MD Interpreting Provider: Richard Lizarraga MD Knee X-Ray 12/24/18 11:00 IMPRESSION: Diffuse osteopenia. No acute fracture or dislocation of the left femur. Moderate degenerative changes in left hip. No acute fracture or dislocation of the left knee. Moderate tricompartmental degenerative changes. Mild suprapatellar joint effusion. No acute fracture or dislocation of the left tibia fibula. No acute fracture or dislocation of the pelvis. Moderate degenerative changes. RECOMMENDATION: 2 D/ / Richard Lizarraga MD / Richard Lizarraga MD Interpreting Provider: Richard Lizarraga MD Pelvis X-Ray 12/24/18 11:00 IMPRESSION: Diffuse osteopenia. No acute fracture or dislocation of the left femur. Moderate degenerative changes in left hip. No acute fracture or dislocation of the left knee. Moderate tricompartmental degenerative changes. Mild suprapatellar joint effusion. No acute fracture or dislocation of the left tibia fibula. No acute fracture or dislocation of the pelvis. Moderate degenerative changes. RECOMMENDATION: 2 D/ / Richard Lizarraga MD / Richard Lizarraga MD Interpreting Provider: Richard Lizarraga MD Tibia/Fibula X-Ray 12/24/18 11:00 IMPRESSION: Diffuse osteopenia. No acute fracture or dislocation of the left femur. Moderate degenerative changes in left hip. No acute fracture or dislocation of the left knee. Moderate tricompartmental degenerative changes. Mild suprapatellar joint effusion. No acute fracture or dislocation of the left tibia fibula. No acute fracture or dislocation of the pelvis. Moderate degenerative changes. RECOMMENDATION: 2 D/ / Richard Lizarraga MD / Richard Lizarraga MD Interpreting Provider: Richard Lizarraga MD - Lab Data Result diagrams: 12/24/18 13:36 12/24/18 13:36 Lab Results 12/24/18 12/24/18 Range/Units 13:36 13:36 WBC 9.9 D (4.3-11.1) K/mcL RBC 5.37 H (3.82-4.97) M/mcL Hgb 15.7 H (11.5-15.4) g/dL Hct 48.5 H (35.3-44.9) % MCV 90.3 (83.0-100.0) fL MCH 29.2 (28.0-33.3) pg MCHC 32.4 (31.6-35.5) g/dL RDW 14.2 (11.5-14.5) % Plt Count 143 (140-400) K/mcL MPV 12.8 H (9.4-12.4) fL Immature Gran % 0.3 (0-4) % Seg Neutrophils % 77.3 % Lymphocytes % 16.7 % Monocytes % 4.8 % Eosinophils % 0.6 % Basophils % 0.3 % Neutrophils # 7.7 (1.6-8.9) K/mcL Lymphocytes # 1.7 (0.6-4.6) K/mcL Monocytes # 0.5 (0.0-1.3) K/mcL Eosinophils # 0.1 (0.0-0.6) K/mcL Basophils # 0.0 (0.0-0.2) K/mcL Sodium 140 (136-145) mEq/L Potassium 4.2 (3.5-5.1) mEq/L Chloride 109 H (98-107) mEq/L Carbon Dioxide 25 (23-29) mEq/L BUN 24 H (8-23) mg/dL Creatinine 1.23 H (0.60-1.20) mg/dL Est GFR ( Amer) 51 L (> 60) Est GFR (Non-Af Amer) 42 L (> 60) BUN/Creatinine Ratio 20 (6-26) Glucose 116 H (70-105) mg/dL Calculated Osmolality 295 (280-300) Calcium 9.5 (8.6-10.3) mg/dL Attestation Statement - Attestation Attestation: Patient was seen with resident physician. I reviewed the history, physical, assessment and plan, and agree with the findings. I also personally evaluated this patient and had [id number] time with this patient. 83-year-old female presents emergency Department with a chief complaint of left knee pain. Patient states that she broke her patella last year. She said that leg weak ever since. She said leg gave out on her today and she fell down. She landed on her left side. Elle left leg. She denies loss of conscious. She denies hitting her head or neck or back pain. No other complaints. She is unable to relate afterwards. Review of systems as above remainder negative. Physical exam vital signs are stable. ENT is unremarkable. Neck and back nontender. Heart regular rhythm rate lungs clear. Abdomen soft nontender. Extremities show tenderness with palpation the lateral aspect of the knee especially inferiorly around the area of the fibula. She keeps the knee in a flexed position which is a position of comfort for her. It should be noted that she has slight decrease in pulse on the left foot. Pelvis is stable. Neurologically alert and oriented she moves all extremities. Skin no rashes. Some bruising around the lateral aspect left knee. ED course. We will get x-rays of leg and treat appropriately. X-rays did not show any acute fractures. However the patient had significant pain. She is given pain medication but that unfortunately did not allow her to ambulate. Patient was offered a vascular study to because the foot pulses slightly decreased in that side. Unfortunately she cannot tolerate the study and told us to stop. She said was secondary to discomfort. Patient was unable to ambulate and therefore unable to go home. We spoke with the hospitalist service agreed to accept the patient for admission. Patient was hemodynamically stable while here. Agree with resident physician assessment and plan.
[2018-12-24] MEDS ORDERED: *HR* HYDROmorphone (PF) 1 MG/ML SYRINGE IVP ONE (13:16)
[2018-12-24 14:03] LABS: Basophils % 0.3 %; Eosinophils # 0.1 K/mcL (0.0-0.6); Eosinophils % 0.6 %; Hematocrit 48.5 % (35.3-44.9); Hemoglobin 15.7 g/dL (11.5-15.4); Immature Granulocytes % 0.3 % (0-4); Lymphocytes # 1.7 K/mcL (0.6-4.6); Lymphocytes % 16.7 %; Mean Corpuscular HGB Conc 32.4 g/dL (31.6-35.5); Mean Corpuscular Hemoglobin 29.2 pg (28.0-33.3); Mean Corpuscular Volume 90.3 fL (83.0-100.0); Mean Platelet Volume 12.8 fL (9.4-12.4); Monocytes # 0.5 K/mcL (0.0-1.3); Monocytes % 4.8 %; Platelet Count 143 K/mcL (140-400); Red Blood Count 5.37 M/mcL (3.82-4.97); Red Cell Distribution Width 14.2 % (11.5-14.5); Segmented Neutrophils % 77.3 %
[2018-12-24 14:07] LABS: Neutrophils # 7.7 K/mcL (1.6-8.9); White Blood Count 9.9 K/mcL (4.3-11.1)
[2018-12-24 14:18] LABS: Calcium 9.5 mg/dL (8.6-10.3); Potassium 4.2 mEq/L (3.5-5.1)
[2018-12-24] MEDS ORDERED: Ondansetron 4 MG/2 ML VIAL IVP ONE (14:38)
[2018-12-24] MEDS ORDERED: 0.9 % Sodium Chloride 1,000 ML IVC ONE (14:44)
[2018-12-24] MEDS ORDERED: Morphine Sulfate 2 MG/ML SYRINGE IVP ONE (15:50)
[2018-12-24] MEDS ORDERED: Naloxone 0.4 MG/ML INJ IVP PRN (16:59)
[2018-12-24] MEDS ORDERED: Mag Hydrox/Al Hydrox/Simeth 30 ML UDC PO PRN (16:59)
[2018-12-24] MEDS ORDERED: MOM Conc 10 ML UD.LIQ PO PRN (16:59)
[2018-12-24] MEDS ORDERED: Acetaminophen 325 MG TABLET PO PRN (16:59)
--- NOTE | 2018-12-24 17:26 | Internal Med History&Physical ---
Date of Encounter: 12/24/18 Time of Encounter: 17:20 Internal Medicine - H&P: HPI Admitted From: Home Plans for Post Hospital Care: Home History of present illness: Ms. Stahl is a 83 year old female has medical history of hypertension and osteoporosis presented with acute left knee pain after suffering from a mechanical fall. Patient was ambulating in the kitchen with a walker trying to grab a class water, when he knee just gave out and she fell on the left side, hit her left knee. She experienced excruciating pain and was unable to stand up. Patient lives alone at home, the whole event was unwitnessed. She was brought in by her family. During the event, patient denies loss of consciousness, loss control of bowel or bladder, chest pain, shortness of breath, palpitation, lightheadedness, or presyncope. She had a history of left knee injury in the past, she also has history of osteoporosis and currently taking vitamin D supplement. In the ED, vital signs was notable for significantly elevated blood pressure. Labs showed a slightly elevated BUN and creatinine, but close to her baseline. X-ray of left side extremities including hip, knee, fibula/tibia no acute fracture. Patient was administered with IV pain medicine. She is admitted for further evaluation and management. CODE STATUS discussed with patient and family, she will be full code while in the hospital. Past Med Surg Social Fam HX - Past Medical History Medical history: COPD, hypertension, other Additional medical history: vertigo Psychiatric history: no psych history - Past Surgical History Surgical History: appendectomy Additional surgical history: left knee surgery - Social History Smoking Status: Former smoker Smokeless Tobacco Status: No Alcohol use: none Drug use: none - Family History Father Family Member Ethnicity: Non- Living Status: Mother Family Member Ethnicity: Non- Living Status: Brother Adopted: No Family Member Ethnicity: Non- Living Status: Hx Family Endocrine Disorder: Yes (DM) Sister Family Member Ethnicity: Non- Living Status: Hx Family Cardiac Disorders: Yes (CAD) Hx Family Cancer: Yes (Breast) Hx Family Endocrine Disorder: Yes (DM) Internal Medicine - H&P: Meds Albuterol Sulfate [Ventolin Hfa] 2 puff IH Q4H PRN 12/19/18 [History] Cholecalciferol (D-3) [Vitamin D] 5,000 unit PO DAILY 12/19/18 [History] Fluticasone/Umeclidin/Vilanter [Trelegy Ellipta 100-62.5-25] 1 puff IH DAILY 12/19/18 [History] Losartan [Cozaar] 100 mg PO DAILY #30 tablet 12/20/18 [Rx] Ondansetron ODT [Zofran ODT] 4 mg SL Q8HR PRN #20 tab.rapdis 12/20/18 [Rx] Allergy/AdvReac Type Severity Reaction Status Date / Time No Known Allergies Allergy Verified 09/04/18 12:59 All Systems PM: A 10-system review of systems was performed and is negative for pertinent findings except as documented above in the HPI. Review of systems: REVIEW OF SYSTEMS: CONSTITUTIONAL: No weight loss, fever, chills, weakness or fatigue. HEENT: Eyes: No visual loss, blurred vision, double vision or yellow sclerae. Ears, Nose, Throat: No hearing loss, sneezing, congestion, runny nose or sore throat. SKIN: No rash or itching. CARDIOVASCULAR: No chest pain, chest pressure or chest discomfort. No palpitations or edema. RESPIRATORY: No shortness of breath, cough or sputum. GASTROINTESTINAL: No anorexia, nausea, vomiting or diarrhea. No abdominal pain or blood. GENITOURINARY: No dysuria, urgency, or frequency. NEUROLOGICAL: No headache, dizziness, syncope, paralysis, ataxia, numbness or tingling in the extremities. No change in bowel or bladder control. MUSCULOSKELETAL: see HPI. HEMATOLOGIC: No anemia, bleeding or bruising. LYMPHATICS: No enlarged nodes. No history of splenectomy. PSYCHIATRIC: No history of depression or anxiety. ENDOCRINOLOGIC: No reports of sweating, cold or heat intolerance. No polyuria or polydipsia. - Constitutional Vitals: Temp Pulse Resp BP Pulse Ox 98.8 F 74 16 177/82 98 12/24/18 11:03 12/24/18 16:31 12/24/18 16:31 12/24/18 16:31 12/24/18 16:31 General appearance: Present: A&O X 3 Exam: PHYSICAL EXAMINATION: GENERAL APPEARANCE: The patient is alert, oriented and in no acute distress. HEENT: Head is normocephalic. The sinuses are nontender. Pupils are equal and reactive. The nares are patent. Oropharynx clear without lesions. NECK: Supple without lymphadenopathy. HEART: Regular rate and rhythm. LUNGS: No crackles or wheezes are heard. ABDOMEN: Soft, nontender, nondistended with good bowel sounds heard. Inguinal area is normal. EXTREMITIES: soft tissue swelling/hematoma noted on the lateral side of left knee. No pain on left hip or ankle on passive ROM. NEUROLOGICAL: Gross nonfocal. SKIN: Warm and dry without any rash. Internal Med - H&P Results - Labs CBC & Chem 7: 12/24/18 13:36 12/24/18 13:36 Labs: Short CBC 12/24/18 Range/Units 13:36 WBC 9.9 D (4.3-11.1) K/mcL Hgb 15.7 H (11.5-15.4) g/dL Hct 48.5 H (35.3-44.9) % Plt Count 143 (140-400) K/mcL Neutrophils # 7.7 (1.6-8.9) K/mcL BMP 12/24/18 13:36 Sodium 140 Potassium 4.2 Chloride 109 H Carbon Dioxide 25 BUN 24 H Creatinine 1.23 H Glucose 116 H Calcium 9.5 - Impressions ITS Impressions Femur X-Ray 12/24/18 11:00 IMPRESSION: Diffuse osteopenia. No acute fracture or dislocation of the left femur. Moderate degenerative changes in left hip. No acute fracture or dislocation of the left knee. Moderate tricompartmental degenerative changes. Mild suprapatellar joint effusion. No acute fracture or dislocation of the left tibia fibula. No acute fracture or dislocation of the pelvis. Moderate degenerative changes. RECOMMENDATION: 2 D/ / Richard Lizarraga MD / Richard Lizarraga MD Interpreting Provider: Richard Lizarraga MD Knee X-Ray 12/24/18 11:00 IMPRESSION: Diffuse osteopenia. No acute fracture or dislocation of the left femur. Moderate degenerative changes in left hip. No acute fracture or dislocation of the left knee. Moderate tricompartmental degenerative changes. Mild suprapatellar joint effusion. No acute fracture or dislocation of the left tibia fibula. No acute fracture or dislocation of the pelvis. Moderate degenerative changes. RECOMMENDATION: 2 D/ / Richard Lizarraga MD / Richard Lizarraga MD Interpreting Provider: Richard Lizarraga MD Pelvis X-Ray 12/24/18 11:00 IMPRESSION: Diffuse osteopenia. No acute fracture or dislocation of the left femur. Moderate degenerative changes in left hip. No acute fracture or dislocation of the left knee. Moderate tricompartmental degenerative changes. Mild suprapatellar joint effusion. No acute fracture or dislocation of the left tibia fibula. No acute fracture or dislocation of the pelvis. Moderate degenerative changes. RECOMMENDATION: 2 D/ / Richard Lizarraga MD / Richard Lizarraga MD Interpreting Provider: Richard Lizarraga MD Tibia/Fibula X-Ray 12/24/18 11:00 IMPRESSION: Diffuse osteopenia. No acute fracture or dislocation of the left femur. Moderate degenerative changes in left hip. No acute fracture or dislocation of the left knee. Moderate tricompartmental degenerative changes. Mild suprapatellar joint effusion. No acute fracture or dislocation of the left tibia fibula. No acute fracture or dislocation of the pelvis. Moderate degenerative changes. RECOMMENDATION: 2 D/ / Richard Lizarraga MD / Richard Lizarraga MD Interpreting Provider: Richard Lizarraga MD - Assessment and Plan (1) Left knee pain Current Visit: Yes Status: Acute Assessment and plan: 83-year-old female presented with left knee pain after fall. Denies chest pain, shortness breath, palpitation, or lightheadedness prior to the event. Patient reported absence of loss of consciousness, loss control of bowel or bladder. likely a simple mechanical fall. X-ray of the left lower extremity has no acute bony fracture. Soft tissue swelling with possible small hematoma noted on the lateral side of left knee. Pt reported excruciating pain when I am touching the left side of the leg. ED providers suspected possible PVD and recommended IZABEL, per patient and family declined. Soft tissue swelling site is close to common peroneal nerve anatomical location, pt did complain lateral leg pain. We will continue monitoring. Continue pain control, cold compression to local area. PT/OT consult. 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 PT/OT consult. Qualifiers: Encounter type: initial encounter Qualified Code(s): W19.XXXA - Unspecified fall, initial encounter (3) HTN (hypertension) Current Visit: No Status: Chronic Assessment and plan: BP was significantly elevated likely due to pain and acute distress. Resume home medication, hydralazine when necessary. Qualifiers: Hypertension type: essential hypertension Qualified Code(s): I10 - Essential (primary) hypertension (4) CKD (chronic kidney disease) stage 3, GFR 30-59 ml/min Current Visit: No Status: Chronic Assessment and plan: BUN/creatinine at the baseline, continue monitoring. (5) DVT prophylaxis Current Visit: Yes Status: Acute Assessment and plan: Heparin subcutaneous. - Time Spent With Patient Total time spent is greater than 50% in coordination of care (as documented) at patient's floor/unit and/or counseling patient: Greater than 35 minutes
[2018-12-24] MEDS: *HR* Heparin 5,000 UNIT/ML VIAL SQ SCH (18:52)
[2018-12-24] MEDS: Ondansetron 4 MG/2 ML VIAL IVP PRN (20:16)
[2018-12-24] MEDS: traMADol 50 MG TABLET PO PRN (21:18)
[2018-12-24] MEDS: *HR* Promethazine 25 MG/ML VIAL IVP PRN (21:40)
[2018-12-24] MEDS ORDERED: Acetaminophen IV 500 MG/50 ML INFUS..BTL IVPB ONE (21:49)
[2018-12-25 05:27] LABS: Basophils % 0.3 %; Eosinophils % 0.4 %; Hematocrit 47.9 % (35.3-44.9); Hemoglobin 15.5 g/dL (11.5-15.4); Immature Granulocytes % 0.3 % (0-4); Lymphocytes % 13.9 %; Mean Corpuscular HGB Conc 32.4 g/dL (31.6-35.5); Mean Corpuscular Hemoglobin 29.9 pg (28.0-33.3); Mean Corpuscular Volume 92.3 fL (83.0-100.0); Mean Platelet Volume 13.2 fL (9.4-12.4); Monocytes # 0.5 K/mcL (0.0-1.3); Monocytes % 6.4 %; Neutrophils # 5.7 K/mcL (1.6-8.9); Platelet Count 134 K/mcL (140-400); Red Blood Count 5.19 M/mcL (3.82-4.97); Red Cell Distribution Width 14.3 % (11.5-14.5); Segmented Neutrophils % 78.7 %; White Blood Count 7.2 K/mcL (4.3-11.1)
[2018-12-25 05:45] LABS: Potassium 4.3 mEq/L (3.5-5.1)
[2018-12-25] MEDS: *HR* Heparin 5,000 UNIT/ML VIAL SQ SCH ×2 (06:24→18:20)
--- NOTE | 2018-12-25 08:46 | Internal Med Progress Note ---
Hospitalist Progress Note - Encounter Date of Encounter: 12/25/18 Time of Encounter: 08:40 - Subjective Interval History: 83-year-old female with history of hypertension and osteoporosis presented with a seemingly mechanical fall and inability to ambulate. She fell and hit the left knee, reportedly excruciating pain and unable to ambulate. Initial x-ray at the ED show no acute fracture. Soft tissue swelling and a small hematoma initiated on physical exam located at the lateral side of left knee adjacent to fibular head. Patient was admitted. Overnight, the soft tissue swelling has resolved, but small hematoma remained. Patient still reported excruciating pain on passive range of motion. Orthopedics was consulted, recommended dedicated left knee x-ray. Continue pain control. Since seen and examined in the room, she feels better than yesterday, however, she experienced excruciating pain when I performed passive range of motion on the left knee. A small hematoma adjacent to fibular head noted on physical exam, patient also reported numbness on the lateral lower left leg. - Exam Vitals: Temp Pulse Resp BP Pulse Ox 98.2 F 83 16 121/75 86 12/25/18 07:14 12/25/18 07:14 12/25/18 07:14 12/25/18 07:14 12/25/18 07:14 Exam: PHYSICAL EXAMINATION: GENERAL APPEARANCE: The patient is alert, oriented and in no acute distress. HEENT: Head is normocephalic. The sinuses are nontender. Pupils are equal and reactive. The nares are patent. Oropharynx clear without lesions. NECK: Supple without lymphadenopathy. HEART: Regular rate and rhythm. LUNGS: No crackles or wheezes are heard. ABDOMEN: Soft, nontender, nondistended with good bowel sounds heard. Inguinal area is normal. EXTREMITIES: a small hematoma noted on the lateral side of left knee. No pain on left hip or ankle on passive ROM. NEUROLOGICAL: Gross nonfocal. mild numbness on the lateral left lower leg. SKIN: Warm and dry without any rash. - Assessment and Plan (1) Left knee pain Current Visit: Yes Status: Acute Assessment and Plan: 12/24 83-year-old female presented with left knee pain after fall. Denies chest pain, shortness breath, palpitation, or lightheadedness prior to the event. Patient reported absence of loss of consciousness, loss control of bowel or bladder. likely a simple mechanical fall. X-ray of the left lower extremity has no acute bony fracture. Soft tissue swelling with possible small hematoma noted on the lateral side of left knee. Pt reported excruciating pain when I am touching the left side of the leg. ED providers suspected possible PVD and recommended IZABEL, per patient and family declined. Soft tissue swelling site is close to common peroneal nerve anatomical location, pt did complain lateral leg pain. We will continue monitoring. Continue pain control, cold compression to local area. PT/OT consult. 12/25 Pt still having excruciating pain on passive range of motion. Small hematoma on the lateral side or left knee. Patient also reported numbness on the lateral left lower leg, given the proximityof the hematoma near the fibular head, common peroneal nerve injury was suspected. Dedicated x-ray of left knee was ordered per orthopedics recommendation. Orthopedics will see the patient, appreciate help. Continue pain control and supportive care. 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 PT/OT consult. (3) HTN (hypertension) Current Visit: No Status: Chronic Assessment and Plan: BP well controlled, continue home medication. (4) CKD (chronic kidney disease) stage 3, GFR 30-59 ml/min Current Visit: No Status: Chronic Assessment and Plan: BUN/creatinine, 20/1.14, at the baseline, continue monitoring. (5) DVT prophylaxis Current Visit: Yes Status: Acute Assessment and Plan: Heparin subcutaneous. - Time Spent with Patient Total time spent is greater than 50% in coordination of care (as documented) at patient's floor/unit and/or counseling patient: Greater than 35 minutes Plan of Care Discussed with: patient Internal Medicine: Result - Labs CBC & Chem 7: 12/25/18 04:24 12/25/18 04:24 Labs: Short CBC 12/24/18 12/25/18 Range/Units 13:36 04:24 WBC 9.9 D 7.2 (4.3-11.1) K/mcL Hgb 15.7 H 15.5 H (11.5-15.4) g/dL Hct 48.5 H 47.9 H (35.3-44.9) % Plt Count 143 134 L (140-400) K/mcL Neutrophils # 7.7 5.7 (1.6-8.9) K/mcL BMP 12/24/18 12/25/18 13:36 04:24 Sodium 140 141 Potassium 4.2 4.3 Chloride 109 H 107 Carbon Dioxide 25 25 BUN 24 H 20 Creatinine 1.23 H 1.14 Glucose 116 H 108 H Calcium 9.5 9.0 - Impressions Impressions Femur X-Ray 12/24/18 11:00 IMPRESSION: Diffuse osteopenia. No acute fracture or dislocation of the left femur. Moderate degenerative changes in left hip. No acute fracture or dislocation of the left knee. Moderate tricompartmental degenerative changes. Mild suprapatellar joint effusion. No acute fracture or dislocation of the left tibia fibula. No acute fracture or dislocation of the pelvis. Moderate degenerative changes. RECOMMENDATION: 2 D/ / Richard Lizarraga MD / Richard Lizarraga MD Interpreting Provider: Richard Lizarraga MD Knee X-Ray 12/24/18 11:00 IMPRESSION: Diffuse osteopenia. No acute fracture or dislocation of the left femur. Moderate degenerative changes in left hip. No acute fracture or dislocation of the left knee. Moderate tricompartmental degenerative changes. Mild suprapatellar joint effusion. No acute fracture or dislocation of the left tibia fibula. No acute fracture or dislocation of the pelvis. Moderate degenerative changes. RECOMMENDATION: 2 D/ / Richard Lizarraga MD / Richard Lizarraga MD Interpreting Provider: Richard Lizarraga MD Pelvis X-Ray 12/24/18 11:00 IMPRESSION: Diffuse osteopenia. No acute fracture or dislocation of the left femur. Moderate degenerative changes in left hip. No acute fracture or dislocation of the left knee. Moderate tricompartmental degenerative changes. Mild suprapatellar joint effusion. No acute fracture or dislocation of the left tibia fibula. No acute fracture or dislocation of the pelvis. Moderate degenerative changes. RECOMMENDATION: 2 D/ / Richard Lizarraga MD / Richard Lizarraga MD Interpreting Provider: Richard Lizarraga MD Tibia/Fibula X-Ray 12/24/18 11:00 IMPRESSION: Diffuse osteopenia. No acute fracture or dislocation of the left femur. Moderate degenerative changes in left hip. No acute fracture or dislocation of the left knee. Moderate tricompartmental degenerative changes. Mild suprapatellar joint effusion. No acute fracture or dislocation of the left tibia fibula. No acute fracture or dislocation of the pelvis. Moderate degenerative changes. RECOMMENDATION: 2 D/ / Richard Lizarraga MD / Richard Lizarraga MD Interpreting Provider: Richard Lizarraga MD Consult Discharge Plan - Plan Referrals: Eusebio Stone MD [Partnered Physician] - 01/01/19 2:20 pm Juan R Kaminski MD [Primary Care Provider] - 12/29/18 11:30 am () Mari Hess DO [Non-Partnered Physician] - 01/22/19 11:30 am (1) Left knee pain Qualifiers: Chronicity: acute Qualified Code(s): M25.562 - Pain in left knee (2) Fall Qualifiers: Encounter type: initial encounter Qualified Code(s): W19.XXXA - Unspecified fall, initial encounter (3) HTN (hypertension) Qualifiers: Hypertension type: essential hypertension Qualified Code(s): I10 - Essential (primary) hypertension
[2018-12-25] MEDS: Cholecalciferol (D-3) 1,000 UNIT (25MCG) TABLET PO SCH (09:18)
[2018-12-25] MEDS: traMADol 50 MG TABLET PO PRN (09:18)
[2018-12-25] MEDS: *HR* Promethazine 25 MG/ML VIAL IVP PRN ×2 (10:26→22:40)
[2018-12-25] MEDS: Morphine Sulfate 2 MG/ML SYRINGE IVP PRN ×2 (15:24→22:12)
[2018-12-25] MEDS: Ondansetron 4 MG/2 ML VIAL IVP PRN (15:50)
--- NOTE | 2018-12-25 21:30 | Orthopedic Consult Note ---
Date of Encounter: 12/25/18 Time of Encounter: 21:30 Assessment and Plan (1) Knee pain, left Current Visit: Yes Status: Acute I did have a long discussion with the patient regarding the diagnosis. She does have left knee pain after an injury. I feel that she likely does have an occult fracture of the lateral tibial plateau. This is not definitely revealed by x- rays and therefore my recommendation is to proceed with a noncontrast CT scan of the left knee to further evaluate the articular surface and looked for a subtle lateral plateau depression. Nonweightbearing in the meantime. CT scan order has been placed. I will follow this up. I have reviewed each of the pertinent components of this chart and any other pertinent medical component(s) including but not limited to pertinent application of the chief complaint, history of present illness, current medication, medical history, allergies, family history, medical history, surgical history, social history, review of systems, vital signs, and any other portion of the pertinent patient medical record directly or indirectly involved with this patient care that is pertinent based on my medical decision process. ANNETTE Umaña Qualifiers: Qualified Code(s): M25.562 - Pain in left knee History of Present Illness HPI: Ms. Stahl is a 83 year old female who is currently admitted to the hospitalist due to left knee pain after a mechanical fall. This is of acute onset and is sharp and achy and localized the lateral aspect of the knee, worse with any movement or use and better with rest. X-rays of the pelvis, femur, knee, tib- fib were all negative for any definite fractures. I was asked to evaluate the patient's left knee. She corroborates the above history. No numbness, tingling, or any other associated signs or symptoms. She denies any other pain or injuries. Past Med Surg Social Fam HX - Past Medical History Medical history: COPD, hypertension, other Additional medical history: vertigo Psychiatric history: no psych history - Past Surgical History Surgical History: appendectomy Additional surgical history: left knee surgery - Social History Smoking Status: Current every day smoker Smokeless Tobacco Status: No Alcohol use: none Drug use: none - Family History Father Family Member Ethnicity: Non- Living Status: Mother Family Member Ethnicity: Non- Living Status: Brother Adopted: No Family Member Ethnicity: Non- Living Status: Hx Family Endocrine Disorder: Yes (DM) Sister Family Member Ethnicity: Non- Living Status: Hx Family Cardiac Disorders: Yes (CAD) Hx Family Cancer: Yes (Breast) Hx Family Endocrine Disorder: Yes (DM) Medications and Allergies Albuterol Sulfate [Ventolin Hfa] 2 puff IH Q4H PRN 12/19/18 [History] Cholecalciferol (D-3) [Vitamin D] 5,000 unit PO DAILY 12/19/18 [History] Fluticasone/Umeclidin/Vilanter [Trelegy Ellipta 100-62.5-25] 1 puff IH DAILY 12/19/18 [History] Ondansetron ODT [Zofran ODT] 4 mg SL Q8HR PRN #20 tab.rapdis 12/20/18 [Rx] Losartan Potassium [Cozaar] 100 mg PO DAILY 12/25/18 [History] Allergy/AdvReac Type Severity Reaction Status Date / Time No Known Allergies Allergy Verified 09/04/18 12:59 All Systems Reviewed: Constitutional -The patient denies any fevers, chills, or feelings of illness Neurologic -The patient denies any numbness, tingling, or burning pains Physical Exam - Constitutional Vitals: Temp Pulse Resp BP Pulse Ox 98 F 77 16 118/74 92 12/25/18 19:21 12/25/18 19:21 12/25/18 19:21 12/25/18 19:21 12/25/18 19:21 Constitutional -Vitals reviewed -The patient is well developed and well nourished. -Mood is pleasant. -The patient is well groomed. Psychiatric -The patient is fully alert and oriented x 3. Respiratory: -Respiratory effort normal Abdomen: -Soft abdomen -Non tender -Non distended: Left upper extremity: -No deformities. The overlying skin is intact. No obvious signs of acute trauma. -No tenderness to palpation throughout. -No significant pain with passive motion of the shoulder, elbow, wrist, and fingers within the limits of the bed. -Able to make an "OK" sign, cross the index and long fingers, and extend the thumb. -Sensation grossly intact to light touch throughout the median, radial, and ulnar distributions. -Radial pulse is present; Fingers have good capillary refill. Right upper extremity: -No deformities. The overlying skin is intact. No obvious signs of acute trauma. -No tenderness to palpation throughout. -No significant pain with passive motion of the shoulder, elbow, wrist, and fingers within the limits of the bed. -Able to make an "OK" sign, cross the index and long fingers, and extend the thumb. -Sensation grossly intact to light touch throughout the median, radial, and ulnar distributions. -Radial pulse is present; Fingers have good capillary refill. Left lower extremity: -No deformities. The overlying skin is intact. No obvious signs of acute trauma. -Significant tenderness over the lateral joint line and fibular head region. There is no palpable effusion. -No pain with passive motion of the hip, ankle, and toes within the limits of the bed. -I am not able to range the knee due to significant pain. -No pain with axial loading of the thigh. -Able to dorsiflex and plantarflex the ankle and toes. -Sensation is grossly intact to light touch throughout the sural, saphenous, superficial peroneal, and deep peroneal distributions. -Toes have good capillary refill. Right lower extremity: -No deformities. The overlying skin is intact. No obvious signs of acute trauma. -No tenderness to palpation throughout. -No pain with passive motion of the hip, knee, ankle, and toes within the limits of the bed. -No pain with axial loading of the thigh. -Able to dorsiflex and plantarflex the ankle and toes. -Sensation is grossly intact to light touch throughout the sural, saphenous, superficial peroneal, and deep peroneal distributions. -Toes have good capillary refill. Diagnostic Imaging: I did personally review and interpret x-rays of the pelvis, left femur, knee, and tib-fib do not show any definite fractures though there may be subtle depression on the lateral plateau though it is very difficult to tell on these plain films. Results - Labs Result Diagrams: 12/25/18 04:24 12/25/18 04:24 Labs: Abnormal lab results RBC 5.19 M/mcL (3.82-4.97) H 12/25/18 04:24 Hgb 15.5 g/dL (11.5-15.4) H 12/25/18 04:24 Hct 47.9 % (35.3-44.9) H 12/25/18 04:24 Plt Count 134 K/mcL (140-400) L 12/25/18 04:24 MPV 13.2 fL (9.4-12.4) H 12/25/18 04:24 Chloride 109 mEq/L (98-107) H 12/24/18 13:36 BUN 24 mg/dL (8-23) H 12/24/18 13:36 Creatinine 1.23 mg/dL (0.60-1.20) H 12/24/18 13:36 Est GFR ( Amer) 55 (> 60) L 12/25/18 04:24 Est GFR (Non-Af Amer) 46 (> 60) L 12/25/18 04:24 Glucose 108 mg/dL (70-105) H 12/25/18 04:24 H & H 12/25/18 Range/Units 04:24 Hgb 15.5 H (11.5-15.4) g/dL Hct 47.9 H (35.3-44.9) % All other labs normal. Consult Discharge Plan - Plan Referrals: Eusebio Stone MD [Partnered Physician] - 01/01/19 2:20 pm Juan R Kaminski MD [Primary Care Provider] - 12/29/18 11:30 am () Mari Hess DO [Non-Partnered Physician] - 01/22/19 11:30 am
[2018-12-26] MEDS: traMADol 50 MG TABLET PO PRN ×3 (00:33→23:03)
[2018-12-26 01:51] LABS: Hematocrit 46.8 % (35.3-44.9); Hemoglobin 15.1 g/dL (11.5-15.4); Mean Corpuscular HGB Conc 32.3 g/dL (31.6-35.5); Mean Corpuscular Hemoglobin 29.1 pg (28.0-33.3); Mean Corpuscular Volume 90.2 fL (83.0-100.0); Mean Platelet Volume 12.8 fL (9.4-12.4); Platelet Count 123 K/mcL (140-400); Red Blood Count 5.19 M/mcL (3.82-4.97); Red Cell Distribution Width 14.5 % (11.5-14.5); White Blood Count 6.9 K/mcL (4.3-11.1)
[2018-12-26 02:08] LABS: Calcium 9.1 mg/dL (8.6-10.3); Potassium 4.1 mEq/L (3.5-5.1)
[2018-12-26] MEDS: *HR* Heparin 5,000 UNIT/ML VIAL SQ SCH ×2 (05:02→16:53)
[2018-12-26] MEDS: Morphine Sulfate 2 MG/ML SYRINGE IVP PRN (07:01)
--- NOTE | 2018-12-26 07:21 | Orthopedics Progress Note ---
Date of Encounter: 12/26/18 Time of Encounter: 07:19 - Assessment and Plan (1) Knee pain, left Current Visit: Yes Status: Acute Qualifiers: Qualified Code(s): M25.562 - Pain in left knee Subjective Interval history: S: The patent is resting in bed Continued pain localized to the lateral aspect of the left knee O: AFVSS Left knee with lateral joint line tenderness and over the fibular head No effusion Pain with motion NV intact CT inconclusive due to subobtimal positioning and motion artifact A: Presumed occult lateral tibial plateau fracture P: Nonweightbearing to the left lower extremity Knee immobilizer Consult to PT/OT Objective Vital signs: Vital Signs Temp Pulse Resp BP Pulse Ox 12/25/18 23:15 98.0 F 67 16 176/77 94 12/25/18 19:21 98 F 77 16 118/74 92 12/25/18 15:00 98.0 F 77 15 165/73 95 12/25/18 11:24 97.7 F 82 16 145/82 94 12/25/18 08:00 96 Intake and Output 12/25/18 12/25/18 12/26/18 15:59 23:59 07:59 Intake Total 60 / 60 Balance 60 / 60 Intake: Oral 60 / 60 Other: Meal Breakfast Percent of Meal Consumed 10% Weight 59.5 kg Patient Weight 12/26/18 23:59 Weight 59.5 kg - Labs CBC & BMP: 12/26/18 01:27 12/26/18 01:27 Labs: Abnormal lab results RBC 5.19 M/mcL (3.82-4.97) H 12/26/18 01:27 Hgb 15.5 g/dL (11.5-15.4) H 12/25/18 04:24 Hct 46.8 % (35.3-44.9) H 12/26/18 01:27 Plt Count 123 K/mcL (140-400) L 12/26/18 01:27 MPV 12.8 fL (9.4-12.4) H 12/26/18 01:27 Chloride 109 mEq/L (98-107) H 12/24/18 13:36 BUN 27 mg/dL (8-23) H 12/26/18 01:27 Creatinine 1.33 mg/dL (0.60-1.20) H 12/26/18 01:27 Est GFR ( Amer) 46 (> 60) L 12/26/18 01:27 Est GFR (Non-Af Amer) 38 (> 60) L 12/26/18 01:27 Glucose 112 mg/dL (70-105) H 12/26/18 01:27 Consult Discharge Plan - Plan Referrals: Eusebio Stone MD [Partnered Physician] - 01/01/19 2:20 pm Juan R Kaminski MD [Primary Care Provider] - 12/29/18 11:30 am () Mari Hess DO [Non-Partnered Physician] - 01/22/19 11:30 am
[2018-12-26] MEDS: Cholecalciferol (D-3) 1,000 UNIT (25MCG) TABLET PO SCH (08:13)
[2018-12-26] MEDS: Ondansetron 4 MG/2 ML VIAL IVP PRN (11:01)
--- NOTE | 2018-12-26 14:35 | Internal Med Progress Note ---
Hospitalist Progress Note - Encounter Date of Encounter: 12/26/18 Time of Encounter: 14:35 - Subjective Interval History: 83-year-old female with history of hypertension and osteoporosis presented with a seemingly mechanical fall and inability to ambulate. She fell and hit the left knee, reportedly excruciating pain and unable to ambulate. Initial x-ray at the ED show no acute fracture. Soft tissue swelling and a small hematoma initiated on physical exam located at the lateral side of left knee adjacent to fibular head. Patient was admitted. Patient reported excruciating pain on passive range of motion. Orthopedics was consulted, dedicated left knee x-ray has no acute fracture. CT of left knee was ordered which showed lateral tibial plateau subarticular sepiginous sclerosis which may represent spontaneous osteonecrosis/insufficiency fracture with no articular collapse, no acute depressed fracture, and no soft tissue hematoma or edema. Ortho recommended knee immobilizer, left knee no weight bearing, and PT/OT Patient seen and examined in the room, she has been trying to move the left leg. she was able to straight the leg which she was unable to do yesterday. She still reported pain on the left lateral side of knee by palpation and passive ROM. No soft tissue swelling noted. Overnight, she has no fever, chills, or night sweats. - Exam Vitals: Temp Pulse Resp BP Pulse Ox 97.6 F 75 16 139/87 92 12/26/18 11:10 12/26/18 11:10 12/26/18 11:10 12/26/18 11:10 12/26/18 11:10 Exam: PHYSICAL EXAMINATION: GENERAL APPEARANCE: The patient is alert, oriented and in no acute distress. HEENT: Head is normocephalic. The sinuses are nontender. Pupils are equal and reactive. The nares are patent. Oropharynx clear without lesions. NECK: Supple without lymphadenopathy. HEART: Regular rate and rhythm. LUNGS: No crackles or wheezes are heard. ABDOMEN: Soft, nontender, nondistended with good bowel sounds heard. Inguinal area is normal. EXTREMITIES: pain on the left lateral side of the knee on passive ROM. NEUROLOGICAL: Gross nonfocal. mild numbness on the lateral left lower leg. SKIN: Warm and dry without any rash. - Assessment and Plan (1) Left knee pain Current Visit: Yes Status: Acute Assessment and Plan: 12/24 83-year-old female presented with left knee pain after fall. Denies chest pain, shortness breath, palpitation, or lightheadedness prior to the event. Patient reported absence of loss of consciousness, loss control of bowel or bladder. likely a simple mechanical fall. X-ray of the left lower extremity has no acute bony fracture. Soft tissue swelling with possible small hematoma noted on the lateral side of left knee. Pt reported excruciating pain when I am touching the left side of the leg. ED providers suspected possible PVD and recommended IZABEL, per patient and family declined. Soft tissue swelling site is close to common peroneal nerve anatomical location, pt did complain lateral leg pain. We will continue monitoring. Continue pain control, cold compression to local area. PT/OT consult. 12/25 Pt still having excruciating pain on passive range of motion. Small hematoma on the lateral side or left knee. Patient also reported numbness on the lateral left lower leg, given the proximityof the hematoma near the fibular head, common peroneal nerve injury was suspected. Dedicated x-ray of left knee was ordered per orthopedics recommendation. Orthopedics will see the patient, appreciate help. Continue pain control and supportive care. 12/26 Left knee XR has no acute fracture. CT showed possible osteronecrosis. Ortho recommended non-weight bearing, knee immobilizer, and PT/OT. Mobility of left knee is improving slightly. Continue pain control. 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 PT/OT consult. (3) HTN (hypertension) Current Visit: No Status: Chronic Assessment and Plan: BP well controlled, continue home medication. (4) CKD (chronic kidney disease) stage 3, GFR 30-59 ml/min Current Visit: No Status: Chronic Assessment and Plan: BUN/creatinine, 27/1.33, at the baseline, continue monitoring. (5) DVT prophylaxis Current Visit: Yes Status: Acute Assessment and Plan: Heparin subcutaneous. - Time Spent with Patient Total time spent is greater than 50% in coordination of care (as documented) at patient's floor/unit and/or counseling patient: Greater than 35 minutes Plan of Care Discussed with: patient Internal Medicine: Result - Labs CBC & Chem 7: 12/26/18 01:27 12/26/18 01:27 Labs: Short CBC 12/26/18 Range/Units 01:27 WBC 6.9 (4.3-11.1) K/mcL Hgb 15.1 (11.5-15.4) g/dL Hct 46.8 H (35.3-44.9) % Plt Count 123 L (140-400) K/mcL BMP 12/26/18 01:27 Sodium 139 Potassium 4.1 Chloride 103 Carbon Dioxide 27 BUN 27 H Creatinine 1.33 H Glucose 112 H Calcium 9.1 - Impressions Impressions Knee CT 12/25/18 22:11 IMPRESSION: 1. Lateral tibial plateau subarticular serpiginous sclerosis which may represent spontaneous osteonecrosis/insufficiency fracture with no articular collapse. 2. No acute depressed fracture. 3. No soft tissue hematoma or edema. D/ / 12/26/2018 08:38:15 Bennie Thomas MD / [facility] Interpreting Provider: Bennie Thomas MD Consult Discharge Plan - Plan Referrals: Eusebio Stone MD [Partnered Physician] - 01/01/19 2:20 pm Juan R Kaminski MD [Primary Care Provider] - 12/29/18 11:30 am () Mari Hess DO [Non-Partnered Physician] - 01/22/19 11:30 am (1) Left knee pain Qualifiers: Chronicity: acute Qualified Code(s): M25.562 - Pain in left knee (2) Fall Qualifiers: Encounter type: initial encounter Qualified Code(s): W19.XXXA - Unspecified fall, initial encounter (3) HTN (hypertension) Qualifiers: Hypertension type: essential hypertension Qualified Code(s): I10 - Essential (primary) hypertension
[2018-12-26] MEDS: *HR* Promethazine 25 MG/ML VIAL IVP PRN (16:53)
[2018-12-27 02:45] LABS: Hematocrit 43.7 % (35.3-44.9); Mean Corpuscular Hemoglobin 28.9 pg (28.0-33.3); Mean Corpuscular Volume 90.3 fL (83.0-100.0); Mean Platelet Volume 13.2 fL (9.4-12.4); Platelet Count 117 K/mcL (140-400); Red Blood Count 4.84 M/mcL (3.82-4.97); Red Cell Distribution Width 14.5 % (11.5-14.5)
[2018-12-27 03:02] LABS: Potassium 4.3 mEq/L (3.5-5.1)
[2018-12-27] MEDS: *HR* Heparin 5,000 UNIT/ML VIAL SQ SCH ×2 (05:18→16:53)
[2018-12-27] MEDS: traMADol 50 MG TABLET PO PRN (08:48)
[2018-12-27] MEDS: Cholecalciferol (D-3) 1,000 UNIT (25MCG) TABLET PO SCH (08:49)
[2018-12-27] MEDS ORDERED: 0.9 % Sodium Chloride 500 ML IVC SCH ×2 (09:00→17:15)
[2018-12-27 13:39] LABS: Calcium 9.3 mg/dL (8.6-10.3); Potassium 4.3 mEq/L (3.5-5.1)
--- NOTE | 2018-12-27 17:04 | Internal Med Progress Note ---
Hospitalist Progress Note - Encounter Date of Encounter: 12/27/18 Time of Encounter: 11:00 - Subjective Interval History: Patient was seen and examined at bedside earlier this morning we did discuss rehabilitation which patient was reluctant to go however states that she is interested in getting better and if this will help her and she will consider goi ng to rehabilitation. She has been participating with physical therapy - Exam Vitals: Temp Pulse Resp BP Pulse Ox 98.0 F 85 16 111/71 91 12/27/18 15:00 12/27/18 15:00 12/27/18 15:00 12/27/18 15:12/27/18 15:00 Exam: PHYSICAL EXAMINATION: GENERAL APPEARANCE: The patient is alert, oriented and in no acute distress. HEENT: Head is normocephalic. The sinuses are nontender. Pupils are equal and reactive. The nares are patent. Oropharynx clear without lesions. NECK: Supple without lymphadenopathy. HEART: Regular rate and rhythm. LUNGS: No crackles or wheezes are heard. ABDOMEN: Soft, nontender, nondistended with good bowel sounds heard. Inguinal area is normal. EXTREMITIES: pain on the left lateral side of the knee on passive ROM. NEUROLOGICAL: Gross nonfocal. mild numbness on the lateral left lower leg. SKIN: Warm and dry without any rash. - Assessment and Plan (1) CKD (chronic kidney disease) stage 3, GFR 30-59 ml/min Current Visit: No Status: Chronic Assessment and Plan: BUN/creatinine, 27/1.33, at the baseline, continue monitoring. 12/27 Patient did have elevated creatinine is 0.1 0.67 we will give gentle IV fluids and monitor Monitor electrolytes Monitor intake output daily weights avoid nephrotoxins (2) HTN (hypertension) Current Visit: No Status: Chronic Assessment and Plan: BP well controlled, continue home medication. (3) DVT prophylaxis Current Visit: Yes Status: Acute Assessment and Plan: Heparin subcutaneous. (4) Left knee pain Current Visit: Yes Status: Acute Assessment and Plan: 12/24 83-year-old female presented with left knee pain after fall. Denies chest pain, shortness breath, palpitation, or lightheadedness prior to the event. Patient reported absence of loss of consciousness, loss control of bowel or bladder. likely a simple mechanical fall. X-ray of the left lower extremity has no acute bony fracture. Soft tissue swelling with possible small hematoma noted on the lateral side of left knee. Pt reported excruciating pain when I am touching the left side of the leg. ED providers suspected possible PVD and recommended IZABEL, per patient and family declined. Soft tissue swelling site is close to common peroneal nerve anatomical location, pt did complain lateral leg pain. We will continue monitoring. Continue pain control, cold compression to local area. PT/OT consult. 12/25 Pt still having excruciating pain on passive range of motion. Small hematoma on the lateral side or left knee. Patient also reported numbness on the lateral le ft lower leg, given the proximityof the hematoma near the fibular head, common peroneal nerve injury was suspected. Dedicated x-ray of left knee was ordered per orthopedics recommendation. Orthopedics will see the patient, appreciate help. Continue pain control and supportive care. 12/26 Left knee XR has no acute fracture. CT showed possible osteronecrosis. Ortho recommended non-weight bearing, knee immobilizer, and PT/OT. Mobility of left knee is improving slightly. Continue pain control. 12/27 Left knee XR has no acute fracture. CT showed possible osteronecrosis. Ortho recommended non-weight bearing, knee immobilizer, and PT/OT. Mobility of left knee is improving slightly. Continue pain control. 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 PT/OT consult.-Recommending ECF we will wait for placement - Time Spent with Patient Total time spent is greater than 50% in coordination of care (as documented) at patient's floor/unit and/or counseling patient: Internal Medicine: Result - Labs CBC & Chem 7: 12/27/18 02:02 12/27/18 13:06 Labs: Short CBC 12/27/18 Range/Units 02:02 WBC 6.0 (4.3-11.1) K/mcL Hgb 14.0 (11.5-15.4) g/dL Hct 43.7 (35.3-44.9) % Plt Count 117 L (140-400) K/mcL BMP 12/27/18 12/27/18 02:02 13:06 Sodium 139 138 Potassium 4.3 4.3 Chloride 105 104 Carbon Dioxide 27 30 H BUN 35 H 32 H Creatinine 1.67 H 1.38 H Glucose 106 H 112 H Calcium 9.0 9.3 Consult Discharge Plan - Plan Referrals: Eusebio Stone MD [Partnered Physician] - 01/01/19 2:20 pm Juan R Kaminski MD [Primary Care Provider] - 12/29/18 11:30 am () Mari Hess DO [Non-Partnered Physician] - 01/22/19 11:30 am (2) HTN (hypertension) Qualifiers: Hypertension type: essential hypertension Qualified Code(s): I10 - Essential (primary) hypertension (4) Left knee pain Qualifiers: Chronicity: acute Qualified Code(s): M25.562 - Pain in left knee (5) Fall Qualifiers: Encounter type: initial encounter Qualified Code(s): W19.XXXA - Unspecified fall, initial encounter
[2018-12-28 02:42] LABS: Calcium 9.3 mg/dL (8.6-10.3); Potassium 3.9 mEq/L (3.5-5.1)
[2018-12-28] MEDS: *HR* Promethazine 25 MG/ML VIAL IVP PRN (03:44)
[2018-12-28] MEDS: *HR* Heparin 5,000 UNIT/ML VIAL SQ SCH (05:28)
[2018-12-28 07:05] VITALS: BP 136/85
--- NOTE | 2018-12-28 07:44 | Discharge Summary ---
- NOTES TO OUTPATIENT PROVIDER Notes to Outpatient Provider: Follow up with orthopedics. NWB knee immobilizer Date of Encounter: 12/28/18 Time of Encounter: 07:54 - Discharge Diagnosis (1) CKD (chronic kidney disease) stage 3, GFR 30-59 ml/min Priority: Secondary Status: Chronic (2) HTN (hypertension) Priority: Secondary Status: Chronic Qualifiers: Hypertension type: essential hypertension Qualified Code(s): I10 - Essential (primary) hypertension (3) Left knee pain Priority: Primary Status: Acute Qualifiers: Chronicity: acute Qualified Code(s): M25.562 - Pain in left knee (4) Fall Priority: Primary Status: Acute Qualifiers: Encounter type: initial encounter Qualified Code(s): W19.XXXA - Unspecified fall, initial encounter Hospital course: Ms. Stahl is a 83 year old female astragal history of hypertension osteoporosis presented with acute left knee pain after suffering a mechanical fall from standing. While standing in her kitchen with a walker patient states her knee just gave out and she fell onto her left side and hit her left knee. Patient lives alone and fall was unwitnessed. She was unable to stand or bear weight on her left leg. X-ray of left extremity with no fracture CT of left knee lateral tibial plateau subarticular serpiginous sclerosis she may represent spontaneous osteonecrosis/insufficiency fracture with no articular collapse. Orthopedics was consulted recommending nonweightbearing knee immobilizer patient was evaluated by PT and OT due to frequent falls and patient living alone nonweightbearing status recommending ECF for rehabilitation. Patient verbalized agreement and has been accepted at [facility]-she is hemodynamically stable at this time and is ready for discharge. - Time Spent with Patient Total time spent providing and/or coordinating discharge services: - Discharge Medications Prescriptions: New Heparin 5,000 unit SQ Q12HCO vial Tramadol HCl [Ultram] 50 mg PO QID PRN 1 Days #4 tab PRN Reason: Pain Continued Cholecalciferol (D-3) [Vitamin D] 5,000 unit PO DAILY Fluticasone/Umeclidin/Vilanter [Trelegy Ellipta 100-62.5-25] 1 puff IH DAILY Albuterol Sulfate [Ventolin Hfa] 2 puff IH Q4H PRN PRN Reason: sob Ondansetron ODT [Zofran ODT] 4 mg SL Q8HR PRN #20 tab.rapdis PRN Reason: Nausea And Vomiting Losartan Potassium [Cozaar] 100 mg PO DAILY Home Medications: Albuterol Sulfate [Ventolin Hfa] 2 puff IH Q4H PRN 12/19/18 [History] Cholecalciferol (D-3) [Vitamin D] 5,000 unit PO DAILY 12/19/18 [History] Fluticasone/Umeclidin/Vilanter [Trelegy Ellipta 100-62.5-25] 1 puff IH DAILY 12/19/18 [History] Ondansetron ODT [Zofran ODT] 4 mg SL Q8HR PRN #20 tab.rapdis 12/20/18 [Rx] Losartan Potassium [Cozaar] 100 mg PO DAILY 12/25/18 [History] Heparin 5,000 unit SQ Q12HCO vial 12/28/18 [Rx] Tramadol HCl [Ultram] 50 mg PO QID PRN 1 Days #4 tab 12/28/18 [Rx] Allergies/Adverse Reactions: Allergy/AdvReac Type Severity Reaction Status Date / Time No Known Allergies Allergy Verified 09/04/18 12:59 Date of admission: 12/25/18 14:24 Primary care physician: Juan R Kaminski MD Consults: 12/24/18 17:02 Consult to Physical Therapy [CONS] Routine Comment: Evaluate, develop and implement POC Reason for Consult: dc plan Does patient have active BEDREST order?: No Is patient medically & hemodynamically stable?: Yes Patient assessed for mobility or mobilized this visit?: Yes OT [Consult to Occupational Therapy] [CONS] Routine Comment: Evaluate, develop and implement POC Reason for Consult: dc plan Does patient have active BEDREST order?: No Is patient medically & hemodynamically stable?: Yes Patient assessed for mobility or mobilized this visit?: Yes 12/25/18 08:02 Consult to Orthopedic Surgery [CONS] Routine Consulting Provider: Orthoped[facility] Reason for Consult: left knee pain, unable to move Call Completed: Yes 12/27/18 08:[address] Mixer Operator [CONS] Routine Reason for SW Consult: PT/OT RECOMMEND PLACEMENT Discharging clinician: Rosa Maria Cruz Anticipated date of discharge: 12/28/18 - Constitutional Vitals: Temp Pulse Resp BP Pulse Ox 97.9 F 89 16 136/85 91 12/28/18 06:54 12/28/18 06:54 12/28/18 06:54 12/28/18 06:54 12/28/18 06:54 General appearance: Present: A&O X 3 Exam: Skin: Free of rash and discoloration. Eyes: Sclera is white. There is no discharge from eyes. ENMT: Oral/pharyngeal mucosa is normal in appearance. There is no discharge from nose or ears. Respiratory: Normal breath sounds with no crackles and wheezes bilaterally. CV: Heart is regular with no gallop or murmur. GI: Abdomen is flat and soft with no palpable mass or visceromegaly. : There is no tenderness in patient's flanks bilaterally. Neuro exam: He has good strength in upper and lower extremities. He has normal eye movements. Psychiatric: He has normal affect. His thought process is appropriate to the situation. - Patient Status Disposition: Transfer SNF Condition: Good Functional capacity at discharge: uses cane/walker Overall status at discharge: patient is back to baseline - Discharge Instructions Follow Up With: Eusebio Stone MD [Partnered Physician] - 01/01/19 2:20 pm Juan R Kaminski MD [Primary Care Provider] - 12/29/18 11:30 am () Mari Hess DO [Non-Partnered Physician] - 01/22/19 11:30 am Forms: ED Satisfaction Letter - Diet and Activity Activity: increase activity as tolerated
[2018-12-28] MEDS: Cholecalciferol (D-3) 1,000 UNIT (25MCG) TABLET PO SCH (08:02)
--- NOTE | 2018-12-28 09:48 | Physician Discharge Referral ---
[facility] Info [facility] Provider in Charge: Anthony Crane Provider in Charge after Transfer: PCP Institutional Level of Care: Skilled - Diagnosis (1) CKD (chronic kidney disease) stage 3, GFR 30-59 ml/min Priority: Secondary Status: Chronic (2) HTN (hypertension) Priority: Secondary Status: Chronic (3) Left knee pain Priority: Primary Status: Acute (4) Fall Priority: Primary Status: Acute Prognosis: Good Aware of Diagnosis: Patient - Transfer Medications Prescriptions: Tramadol HCl [Ultram] 50 mg PO QID PRN 1 Days #4 tab PRN Reason: Pain Home Medications: Albuterol Sulfate [Ventolin Hfa] 2 puff IH Q4H PRN 12/19/18 [History] Cholecalciferol (D-3) [Vitamin D] 5,000 unit PO DAILY 12/19/18 [History] Fluticasone/Umeclidin/Vilanter [Trelegy Ellipta 100-62.5-25] 1 puff IH DAILY 12/19/18 [History] Ondansetron ODT [Zofran ODT] 4 mg SL Q8HR PRN #20 tab.rapdis 12/20/18 [Rx] Losartan Potassium [Cozaar] 100 mg PO DAILY 12/25/18 [History] Heparin 5,000 unit SQ Q12HCO vial 12/28/18 [Rx] Tramadol HCl [Ultram] 50 mg PO QID PRN 1 Days #4 tab 12/28/18 [Rx] Allergies/Adverse Reactions: Allergy/AdvReac Type Severity Reaction Status Date / Time No Known Allergies Allergy Verified 09/04/18 12:59 - Respiratory Orders Smoking Cessation: Smoking cessation has been advised. For more information, call the [place] Tobacco Quit Line at 4-228-IWCU-NOW. - Lab Orders Lab Orders: Nicolas 17 (01/04/2019) CERTIFICATION: I certify that the transfer of the above named patient to an Extended Care Facility is necessary for the continuing treatment of the diagnosis listed. The above information is true and accurate reflection of patient's current condition. Confidential - Redisclosure prohibited without a patient's written consent.
== END 2018-12-28 15:02 | DRG 554 ==
LOC: EMEROOARM 10:53 → 3BNU 10:53
PROVIDERS: ADMIT Student in an Organized Health Care Education/Training Program; ATTEND Student in an Organized Health Care Education/Training Program

== ENCOUNTER 2019-12-19 20:10 | Inpatient (IN) ==
[2019-12-19] MEDS ORDERED: Ondansetron 4 MG/2 ML VIAL IVP ONE (20:19)
[2019-12-19 20:51] LABS: Basophils % 0.3 %; Eosinophils # 0.2 K/mcL (0.0-0.6); Eosinophils % 2.7 %; Hematocrit 48.1 % (35.3-44.9); Hemoglobin 15.9 g/dL (11.5-15.4); Immature Granulocytes % 0.4 % (0-4); Lymphocytes # 2.3 K/mcL (0.6-4.6); Lymphocytes % 29.7 %; Mean Corpuscular HGB Conc 33.1 g/dL (31.6-35.5); Mean Corpuscular Hemoglobin 29.7 pg (28.0-33.3); Mean Corpuscular Volume 89.7 fL (83.0-100.0); Mean Platelet Volume 12.6 fL (9.4-12.4); Monocytes # 0.6 K/mcL (0.0-1.3); Monocytes % 7.7 %; Neutrophils # 4.6 K/mcL (1.6-8.9); Platelet Count 132 K/mcL (140-400); Red Blood Count 5.36 M/mcL (3.82-4.97); Red Cell Distribution Width 13.5 % (11.5-14.5); Segmented Neutrophils % 59.2 %; White Blood Count 7.8 K/mcL (4.3-11.1)
[2019-12-19 20:53] LABS: INR 0.9; Prothrombin Time 10.3 Seconds (9.4-12.1)
[2019-12-19 21:17] LABS: Albumin 4.2 g/dL (3.5-5.7); Albumin/Globulin Ratio 1.6 (1.1-2.2); Bilirubin,Indirect 0.4 mg/dL (0.0-1.0); Bilirubin,Total 0.4 mg/dL (0.3-1.0); Calcium 9.6 mg/dL (8.6-10.3); Globulin 2.7 g/dL (2.4-3.5); Potassium 4.6 mEq/L (3.5-5.1); Total Protein 6.9 g/dL (6.4-8.9); Troponin I 0.03 ng/mL (< 0.04)
[2019-12-19 22:33] LABS: Bacteria,Urine Few per hpf (None-Few); Bilirubin,Urine Negative (Negative); Blood,Urine Small (Negative); Budding Yeast,Urine Moderate per hpf (None Seen); Calcium Oxalate Crystals,Urine Present; Clarity,Urine Ex.Turbid (Clear); Color,Urine Yellow (Yellow); Glucose,Urine (UA) Normal (Normal); Ketones,Urine Negative (Negative); Leukocyte Esterase,Urine Small (Negative); Mucus,Urine Few per lpf (None-Few); Nitrite,Urine Negative (Negative); PH,Urine 6.5 pH Units (5.0-8.0); Protein,Urine 30 mg/dL (Neg-Trace); Specific Gravity,Urine 1.015 (1.010-1.025); Squamous Epithelial Cell,Urine Few per hpf (None-Few); Urobilinogen,Urine Normal (Normal); WBC,Urine 15-30 per hpf (0-3)
[2019-12-19] MEDS ORDERED: cefTRIAXone 1,000 MG in Water for inj. (sterile) 10 ML IVP ONE (22:50)
[2019-12-20] MEDS ORDERED: Naloxone 0.4 MG/ML INJ IVP PRN (00:11)
[2019-12-20 02:58] LABS: Hematocrit 46.4 % (35.3-44.9); Hemoglobin 15.2 g/dL (11.5-15.4); Mean Corpuscular HGB Conc 32.8 g/dL (31.6-35.5); Mean Corpuscular Hemoglobin 29.9 pg (28.0-33.3); Mean Corpuscular Volume 91.3 fL (83.0-100.0); Mean Platelet Volume 12.5 fL (9.4-12.4); Platelet Count 131 K/mcL (140-400); Red Blood Count 5.08 M/mcL (3.82-4.97); Red Cell Distribution Width 13.5 % (11.5-14.5); White Blood Count 9.5 K/mcL (4.3-11.1)
[2019-12-20 03:21] LABS: Calcium 9.2 mg/dL (8.6-10.3); Magnesium 2.3 mg/dL (1.6-2.6); Phosphorous 3.7 mg/dL (2.7-4.5); Potassium 4.3 mEq/L (3.5-5.1); Troponin I 0.03 ng/mL (< 0.04)
[2019-12-20] MEDS ORDERED: *HR* Labetalol 20 MG/4 ML SYRINGE IVP ONE (03:42)
[2019-12-20] MEDS: cefTRIAXone 1,000 MG in Water for inj. (sterile) 10 ML IVP SCH (09:32)
[2019-12-20] MEDS: 0.9 % Sodium Chloride 1,000 ML IVC SCH ×2 (09:32→23:40)
[2019-12-20] MEDS ORDERED: Ipratropium/Albuterol Neb 3 ML IH PRN (11:41)
[2019-12-20] MEDS: Metoprolol XL (24 HR) Succ 50 MG TAB.ER.24H PO SCH (15:27)
[2019-12-20] MEDS: Budesonide/Formoterol 160/4.5 1 PUFF INH IH SCH (20:07)
[2019-12-20] MEDS: Acetaminophen 325 MG TABLET PO PRN (20:18)
[2019-12-21 03:43] LABS: Calcium 8.6 mg/dL (8.6-10.3); Magnesium 2.1 mg/dL (1.6-2.6); Phosphorous 3.9 mg/dL (2.7-4.5); Potassium 4.5 mEq/L (3.5-5.1)
[2019-12-21] MEDS: Budesonide/Formoterol 160/4.5 1 PUFF INH IH SCH ×2 (07:53→19:48)
[2019-12-21] MEDS: Tiotropium 18 MCG inhalation IH SCH (07:54)
[2019-12-21] MEDS: Aspirin Enteric Coated 81 MG Tablet PO SCH (08:13)
[2019-12-21] MEDS: Metoprolol XL (24 HR) Succ 50 MG TAB.ER.24H PO SCH (08:13)
[2019-12-21] MEDS: cefTRIAXone 1,000 MG in Water for inj. (sterile) 10 ML IVP SCH (08:13)
[2019-12-21] MEDS: Acetaminophen 325 MG TABLET PO PRN (08:14)
[2019-12-21] MEDS ORDERED: Perflutren Lipid Microsphere 1.3 ML in 0.9 % Sodium Chloride 8.7 ML IVP PRN ×2 (08:54→11:13)
[2019-12-21] MEDS ORDERED: Metoprolol XL (24 HR) Succ 50 MG TAB.ER.24H PO SCH (09:00)
[2019-12-21] MEDS ORDERED: Isovue-370 500 ML BOTTLE IVP ONE (09:19)
[2019-12-21] MEDS: hydrALAZINE 25 MG TABLET PO SCH ×2 (11:39→17:58)
[2019-12-21 11:54] LABS: Folate 12.1 ng/mL (3.0-16.0)
[2019-12-21] MEDS ORDERED: *HR* HYDROcodone/Acet 5/325 mg TABLET PO PRN (12:37)
[2019-12-21] MEDS ORDERED: 0.9 % Sodium Chloride 1,000 ML IVC SCH (12:45)
[2019-12-21] MEDS ORDERED: Ondansetron 4 MG/2 ML VIAL IVP PRN (15:47)
[2019-12-21] MEDS: *HR* Heparin 5,000 UNIT/ML VIAL SQ SCH (17:02)
[2019-12-21] MEDS: cloNIDine HCL 0.1 MG TABLET PO SCH (21:10)
[2019-12-22 01:22] LABS: Basophils % 0.1 %; Eosinophils # 0.2 K/mcL (0.0-0.6); Eosinophils % 3.2 %; Hematocrit 44.8 % (35.3-44.9); Hemoglobin 14.5 g/dL (11.5-15.4); Immature Granulocytes % 0.3 % (0-4); Lymphocytes # 1.3 K/mcL (0.6-4.6); Lymphocytes % 17.5 %; Mean Corpuscular HGB Conc 32.4 g/dL (31.6-35.5); Mean Corpuscular Hemoglobin 29.9 pg (28.0-33.3); Mean Corpuscular Volume 92.4 fL (83.0-100.0); Mean Platelet Volume 12.7 fL (9.4-12.4); Monocytes # 0.5 K/mcL (0.0-1.3); Monocytes % 6.2 %; Neutrophils # 5.3 K/mcL (1.6-8.9); Platelet Count 107 K/mcL (140-400); Red Blood Count 4.85 M/mcL (3.82-4.97); Red Cell Distribution Width 13.8 % (11.5-14.5); Segmented Neutrophils % 72.7 %; White Blood Count 7.2 K/mcL (4.3-11.1)
[2019-12-22 01:41] LABS: Calcium 8.7 mg/dL (8.6-10.3); Phosphorous 3.6 mg/dL (2.7-4.5); Potassium 4.2 mEq/L (3.5-5.1)
[2019-12-22] MEDS: hydrALAZINE 25 MG TABLET PO SCH ×2 (04:01→11:19)
[2019-12-22] MEDS: *HR* Heparin 5,000 UNIT/ML VIAL SQ SCH (05:07)
[2019-12-22] MEDS: Budesonide/Formoterol 160/4.5 1 PUFF INH IH SCH ×2 (07:40→19:56)
[2019-12-22] MEDS: Tiotropium 18 MCG inhalation IH SCH (07:40)
[2019-12-22] MEDS: Metoprolol XL (24 HR) Succ 50 MG TAB.ER.24H PO SCH (08:26)
[2019-12-22] MEDS: cloNIDine HCL 0.1 MG TABLET PO SCH ×3 (08:26→21:47)
[2019-12-22] MEDS: cefTRIAXone 1,000 MG in Water for inj. (sterile) 10 ML IVP SCH (08:26)
[2019-12-22] MEDS: Aspirin Enteric Coated 81 MG Tablet PO SCH (08:26)
[2019-12-23] MEDS: Tiotropium 18 MCG inhalation IH SCH (07:48)
[2019-12-23] MEDS: Budesonide/Formoterol 160/4.5 1 PUFF INH IH SCH (07:48)
[2019-12-23] MEDS: cloNIDine HCL 0.1 MG TABLET PO SCH (08:19)
[2019-12-23] MEDS: Aspirin Enteric Coated 81 MG Tablet PO SCH (08:19)
[2019-12-23] MEDS: Metoprolol XL (24 HR) Succ 50 MG TAB.ER.24H PO SCH (08:19)
[2019-12-23 08:21] VITALS: BP 176/89
== END 2019-12-23 13:43 | DRG 68 ==
LOC: EMEROOARM 20:10 → 3BNU 20:10 → SUATTDRO 23:17 → 3BNU 23:43
PROVIDERS: ADMIT Family Medicine; ATTEND Internal Medicine